=== PATIENT | female | born 1945 | race Caucasian/White ===

== ENCOUNTER 2025-03-16 17:30 | Inpatient (IN) | payer MEDICARE, SELFPAY ==
[2025-03-16] VITALS (18 sets, daily range): BP systolic 118–135; BP diastolic 55–63; PULSE 60–66; RESP 16–23; TEMP 36.7; O2SAT 96–99; BMI 44.1
--- NOTE | 2025-03-16 18:07 | PC.NURSE ---
family reporting pt at baseline, has been more tired lately after recent hospitalization. pt answering appropriately and no obvious apparent defitics noted on exam
--- NOTE | 2025-03-16 18:28 | DI.RAD.S_ITS ---
PROCEDURE: XR CHEST 1V INDICATIONS: altered mental status TECHNIQUE: One view of the chest was acquired. COMPARISON: [facility], CR, XR CHEST 1 VIEW, 03/08/2025, 8:43. FINDINGS: Surgical changes and devices: None. Lungs and pleura: Mild diffuse interstitial prominence. Mild perihilar airway thickening. Persistent bilateral pleural effusions larger on the right. Associated compressive atelectasis. No new dense consolidation. No pneumothorax. Mediastinum: The cardiomediastinal contours remain stable with enlargement of the cardiac silhouette. Bones and chest wall: No suspicious bony lesions. Overlying soft tissues appear unremarkable. IMPRESSION: Cardiomegaly with persistent bilateral pleural effusions and findings suggestive of mild/early pulmonary edema. Concurrent infectious or inflammatory process not excluded if clinically appropriate. No new dense consolidations identified. Dictated by: Adán Morales M.D. on 03/16/2025 at 19:24 Approved by: Adán Morales M.D. on 03/16/2025 at 19:25
--- NOTE | 2025-03-16 18:28 | EKG_ITS ---
[address] [address] Test Date: 2025-03-16 Pat Name: Ольга Gonsales Department: [facility] Room: Gender: Female [employer]: RICK : 1945 Requested By: Order Number: [id number] Reading MD: Andrey Puri Measurements Intervals [place] Rate: 60 P: 54 AL: 232 QRS: -43 QRSD: 116 T: 164 QT: 418 QTc: 418 Interpretive Statements Sinus rhythm with sinus arrhythmia with 1st degree AV block Left axis deviation Septal infarct , age undetermined ST & T wave abnormality, consider anterolateral ischemia Electronically Signed On 03-17-2025 8:19:52 PDT by Andrey Puri
[2025-03-16 18:36] LABS: Add Manual Diff / Slide Review NO; Hematocrit 29.4 % (36-46); Hemoglobin 9.5 g/dL (12.0-16.0); Lymphocytes Absolute Auto 6900 /uL (1100-4500); Mean Corpuscular HGB Conc 32.3 % (30-36); Mean Corpuscular Hemoglobin 28.7 PG (26-34); Mean Corpuscular Volume 88.8 fL (80-100); Platelet Count 188 X10^3/uL (150-400)
[2025-03-16 18:41] LABS: Alanine Aminotransferase 21 IU/L (<35); Albumin 3.4 g/dL (3.5-5.0); Albumin Globulin Ratio 1.1 (1.0-2.8); Alkaline Phosphatase 52 U/L (38-126); Blood Urea Nitrogen 69 mg/dL (7-17); Calcium 10.3 mg/dL (8.4-10.2); Carbon Dioxide 32 mmol/L (22-32); Chloride 91 mmol/L (98-107); Creatine Kinase 20 U/L (30-135); Estimated Glomerular Filt Rate 28 mL/min (>60); Ethanol (ETOH) < 10 mg/dL (<10); Globulin 3.2 g/dL (1.7-4.1); Glucose 140 mg/dL (70-99); HEMOLYSIS < 15 (0-50); Lactate (Lactic Acid) 1.2 mmol/L (0.7-2.1); Potassium 5.3 mmol/L (3.4-5.1); Sodium 132 mmol/L (137-145); Total Protein 6.6 g/dL (6.3-8.2)
[2025-03-16 18:58] LABS: Procalcitonin 0.171 ng/mL (<0.5)
[2025-03-16 19:09] LABS: Troponin I 0.162 ng/mL (0.01-0.034)
[2025-03-16 19:42] LABS: NT-proBNP (BNP-Adult 18+) 17800 pg/mL (<450)
--- NOTE | 2025-03-16 19:49 | ED_ITS ---
HPI - Neuro Symptoms/Deficit <Erick Snow MD - Last Filed: 03/17/25 14:04> General Chief Complaint: Neuro Symptoms/Deficit Stated Complaint: AMS Time Seen by Provider: 03/16/25 17:38 Source: patient, family and EMS Mode of arrival: EMS History of Present Illness HPI Narrative: 79-year-old female with history of congestive heart failure diabetes and morbid obesity, admitted 02/27/2025 through this morning 03/16/2025 at [facility], family recalls patient was treated with diuretics, was discharged to [facility] where she was admitted earlier today, new to that facility, staff felt that she had transient low heart rate 30s, EMS was called, EMS found her heart rate 60-70, but did find that she was somewhat difficult to arouse, blood sugar not reported to be low, seemed to be improved without specific treatment on arrival here. On Anticoagulants: Yes Related Data Home Medications ?Medication ?Instructions ?Recorded ?Confirmed amlodipine 5 mg tablet 5 mg PO DAILY 03/17/2503/17 atorvastatin 10 mg tablet 20 mg PO ONCE PM 03/17/25 furosemide 20 mg tablet 20 mg PO DAILY 03/17/2503/08 gabapentin 100 mg capsule 100 mg PO DAILY 03/17/2504/01 gabapentin 300 mg capsule 300 mg PO ONCE PM 03/17/25 1 losartan 50 mg tablet 50 mg PO DAILY 03/17/2503/08 Allergies Allergy/AdvReac Type Severity Reaction Status Date / Time tetanus and diphtheria Allergy Unknown Verified 03/16/25 17:56 toxoids Review of Systems <Erick Snow MD - Last Filed: 03/17/25 14:04> Hematologic/Lymphatic On Anticoagulants: Yes Patient History <Erick Snow MD - Last Filed: 03/17/25 14:04> Social History household members: other Smoking Status: Never smoker alcohol intake: never Smoking Status: Never smoker Exam <Erick Snow MD - Last Filed: 03/17/25 14:04> Narrative Exam Narrative: GENERAL: Well-developed patient, in mild distress. HEAD: Atraumatic. Normocephalic. EYES: Pupils equal round and reactive. Extraocular motions intact. No scleral icterus. No injection or drainage. ENT: Nose without bleeding, purulent drainage. Throat without erythema, tonsillar hypertrophy or exudate. Airway patent. NECK: Trachea midline. Non tender CARDIOVASCULAR: Regular rate and rhythm without murmurs, gallops, or rubs. RESPIRATORY: Clear to auscultation. Breath sounds equal bilaterally. No wheezes, rales, or rhonchi. GASTROINTESTINAL: Abdomen soft, non-tender, nondistended. EXTREMITIES: No edema or joint tenderness. BACK: Nontender without deformity or crepitance. No flank tenderness. NEURO: AOx3. Motor functions grossly nonfocal. SKIN: No rash or erythema of visible areas Initial Vital Signs Initial Vital Signs: Vital Signs Blood Pressure 122/59 L 03/16/25 17:33 <Taqueria Merino MD - Last Filed: 03/17/25 15:19> Initial Vital Signs Initial Vital Signs: Vital Signs Blood Pressure 122/59 L 03/16/25 17:33 Course <Erick Snow MD - Last Filed: 03/17/25 14:04> Orders Ordered: ED Orders 03/17/25 09:10 BMP [Basic Metabolic Panel] Stat BNP [NT-proBNP (BNP-Adult 18+)] Stat CBC Auto Diff [Complete Blood Count AUTO DIFF] Stat Troponin I Stat 03/17/25 10:58 PTT Partial Thromboplastin Steven Routine Acetaminophen (Acetaminophen 325 Mg Tablet) 650 mg PO Q6H PRN PRN Reason: Fever/Mild Pain (1-3) Apixaban (Apixaban 5 Mg Tablet) 5 mg PO BID TONEY Last Admin: 03/17/25 08:21 Dose: 5 mg Documented By: RUTHANN Naloxone HCl (Naloxone 0.4 Mg/Ml Vial) 0.2 mg IV Q2MIN PRN PRN Reason: Opiate Reversal Discontinued Medications Furosemide (Furosemide 40 Mg/4 Ml Vial) 40 mg IV NOW ONE Stop: 03/16/25 23:35 Last Admin: 03/16/25 23:54 Dose: 40 mg Documented By: BASIM Heparin Sodium (Porcine) (Heparin 5,000 Unit/Ml Vial) 9,500 unit 80 unit/kg (9500 unit) IV NOW ONE Stop: 03/16/25 23:34 Last Admin: 03/17/25 00:16 Dose: 9,500 unit Documented By: BASIM Heparin Sodium (Porcine) (Heparin 5,000 Unit/Ml Vial) 5,000 unit SUBCUT BID TONEY Heparin Sodium/Dextrose (Heparin Drip) 25,000 unit in 500 mls @ 41.976 mls/hr IV CONT TONEY; Protocol Last Admin: 03/17/25 01:18 Dose: Not Given Documented By: Heparin Sodium/Dextrose (Heparin Drip) 25,000 unit in 500 mls @ 40 mls/hr IV CONT TONEY; Protocol Last Titration: 03/17/25 08:09 Dose: Infused Documented By: RUTHANN Co-signed By: Admin: 03/17/25 00:27 Dose: 40 mls/hr, 40 mls/hr Documented By: BASIM Co-signed By: Vital Signs Vital signs: Vital Signs - 8 hr 03/17/25 07:30 03/17/25 07:30 03/17/25 08:00 Pulse Rate 63 62 Respiratory Rate 16 15 Blood Pressure 147/59 H Pulse Oximetry 96 97 Oxygen Delivery Method Nasal Cannula Oxygen Flow Rate 2 03/17/25 08:01 03/17/25 08:01 03/17/25 08:30 Pulse Rate 62 73 Respiratory Rate 16 24 Blood Pressure 129/56 L Pulse Oximetry 95 96 Oxygen Delivery Method Nasal Cannula Nasal Cannula Oxygen Flow Rate 2 2 03/17/25 08:30 03/17/25 09:00 03/17/25 09:01 Pulse Rate 74 74 Respiratory Rate 20 20 Blood Pressure 134/53 L Pulse Oximetry 95 Oxygen Delivery Method Nasal Cannula Oxygen Flow Rate 2 03/17/25 09:01 03/17/25 09:30 03/17/25 09:30 Pulse Rate 75 Respiratory Rate 19 Blood Pressure 127/55 L 148/65 H Pulse Oximetry Oxygen Delivery Method Oxygen Flow Rate 03/17/25 10:00 03/17/25 10:00 03/17/25 10:30 Pulse Rate 74 72 Respiratory Rate 18 16 Blood Pressure 154/68 H Pulse Oximetry 96 97 Oxygen Delivery Method Nasal Cannula Nasal Cannula Oxygen Flow Rate 2 2 03/17/25 10:30 03/17/25 11:00 03/17/25 11:00 Pulse Rate 75 Respiratory Rate 21 Blood Pressure 139/65 145/64 H Pulse Oximetry 96 Oxygen Delivery Method Nasal Cannula Oxygen Flow Rate 2 03/17/25 11:30 03/17/25 11:31 03/17/25 11:31 Pulse Rate 69 69 Respiratory Rate 20 25 H Blood Pressure 143/63 H Pulse Oximetry 96 97 Oxygen Delivery Method Oxygen Flow Rate <Taqueria Merino MD - Last Filed: 03/17/25 15:19> Orders Ordered: ED Orders 03/17/25 09:10 BMP [Basic Metabolic Panel] Stat BNP [NT-proBNP (BNP-Adult 18+)] Stat CBC Auto Diff [Complete Blood Count AUTO DIFF] Stat Troponin I Stat 03/17/25 10:58 PTT Partial Thromboplastin Steven Routine Acetaminophen (Acetaminophen 325 Mg Tablet) 650 mg PO Q6H PRN PRN Reason: Fever/Mild Pain (1-3) Apixaban (Apixaban 5 Mg Tablet) 5 mg PO BID TONEY Last Admin: 03/17/25 08:21 Dose: 5 mg Documented By: RUTHANN Naloxone HCl (Naloxone 0.4 Mg/Ml Vial) 0.2 mg IV Q2MIN PRN PRN Reason: Opiate Reversal Discontinued Medications Furosemide (Furosemide 40 Mg/4 Ml Vial) 40 mg IV NOW ONE Stop: 03/16/25 23:35 Last Admin: 03/16/25 23:54 Dose: 40 mg Documented By: BASIM Heparin Sodium (Porcine) (Heparin 5,000 Unit/Ml Vial) 9,500 unit 80 unit/kg (9500 unit) IV NOW ONE Stop: 03/16/25 23:34 Last Admin: 03/17/25 00:16 Dose: 9,500 unit Documented By: BASIM Heparin Sodium (Porcine) (Heparin 5,000 Unit/Ml Vial) 5,000 unit SUBCUT BID TONEY Heparin Sodium/Dextrose (Heparin Drip) 25,000 unit in 500 mls @ 41.976 mls/hr IV CONT TONEY; Protocol Last Admin: 03/17/25 01:18 Dose: Not Given Documented By: Heparin Sodium/Dextrose (Heparin Drip) 25,000 unit in 500 mls @ 40 mls/hr IV CONT TONEY; Protocol Last Titration: 03/17/25 08:09 Dose: Infused Documented By: RUTHANN Co-signed By: Admin: 03/17/25 00:27 Dose: 40 mls/hr, 40 mls/hr Documented By: BASIM Co-signed By: Reevaluation(s) Reevaluation #1: Care was assumed at 7:00 a.m. shift change. Patient was discharged from [facility] yesterday to intermediate. At [facility], she was treated for new onset systolic heart failure, paroxysmal atrial fibrillation had a chronically elevated troponin, had impaired renal function, had an encephalopathy that apparently was not fully explained but resolved. After being transferred to the intermediate facility, she was noted to have decreased mental status and possibly bradycardia. Here she was found to have an elevated troponin, elevated proBNP elevated D-dimer and mental status was grossly intact. CT head is negative, pulmonary angiogram for pulmonary embolism not done secondary to impaired kidney functions. Lower extremity ultrasound negative for DVT. Patient was placed on heparin secondary elevated troponin and concern for pulmonary embolism related to elevated D-dimer. I note that the patient was on apixaban at the time of discharge. This was given for her atrial fibrillation. This morning, the patient's vital signs are reviewed and reassuring. She has a new oxygen requirement requiring 2 L. on examination she is somewhat breathless. Her lungs are clear anteriorly, she is too weak to sit up independently she is morbidly obese. Regular rhythm and rate with a 3/6 systolic murmur that had been previously noted. Bilateral pitting edema of the lower extremities. Oriented x3 and able to tell me that she went from her home in [place] to [facility] to rehab facility to [facility]. She denied having chest pain at any point. She denies pain. He tells me that she is hungry. Has elevated D-dimer however this is nonspecific and negative DVT studies for lower extremity. At this point I am going to discontinue her heparin and simply continue apixaban. At the time I assumed her care the plan was to transfer her back to [facility] where she was discharged yesterday. I will contact the [facility] hospitalist service to discuss this further. I think the primary reason for transfer would be continuity of care, she may be appropriate for admission at this hospital. Reevaluation #2: Spoke with patient and no family is at bedside. She had spent 1 night at [facility] before coming here. Appears to be pretty much at her mental status baseline. Family and patient are agreeable to admission here, I am not optimistic that there will be a vent at [facility] nor do I think she necessarily would have different services needed at [facility]. Consultations Consultation #1: Case discussed with Dr.Al Puri accepts admission Vital Signs Vital signs: Vital Signs - 8 hr 03/17/25 07:30 03/17/25 07:30 03/17/25 08:00 Pulse Rate 63 62 Respiratory Rate 16 15 Blood Pressure 147/59 H Pulse Oximetry 96 97 Oxygen Delivery Method Nasal Cannula Oxygen Flow Rate 2 03/17/25 08:01 03/17/25 08:01 03/17/25 08:30 Pulse Rate 62 73 Respiratory Rate 16 24 Blood Pressure 129/56 L Pulse Oximetry 95 96 Oxygen Delivery Method Nasal Cannula Nasal Cannula Oxygen Flow Rate 2 2 03/17/25 08:30 03/17/25 09:00 03/17/25 09:01 Pulse Rate 74 74 Respiratory Rate 20 20 Blood Pressure 134/53 L Pulse Oximetry 95 Oxygen Delivery Method Nasal Cannula Oxygen Flow Rate 2 03/17/25 09:01 03/17/25 09:30 03/17/25 09:30 Pulse Rate 75 Respiratory Rate 19 Blood Pressure 127/55 L 148/65 H Pulse Oximetry Oxygen Delivery Method Oxygen Flow Rate 03/17/25 10:00 03/17/25 10:00 03/17/25 10:30 Pulse Rate 74 72 Respiratory Rate 18 16 Blood Pressure 154/68 H Pulse Oximetry 96 97 Oxygen Delivery Method Nasal Cannula Nasal Cannula Oxygen Flow Rate 2 2 03/17/25 10:30 03/17/25 11:00 03/17/25 11:00 Pulse Rate 75 Respiratory Rate 21 Blood Pressure 139/65 145/64 H Pulse Oximetry 96 Oxygen Delivery Method Nasal Cannula Oxygen Flow Rate 2 03/17/25 11:30 03/17/25 11:31 03/17/25 11:31 Pulse Rate 69 69 Respiratory Rate 20 25 H Blood Pressure 143/63 H Pulse Oximetry 96 97 Oxygen Delivery Method Oxygen Flow Rate MDM - Neuro Symptoms/Deficit <Erick Snow MD - Last Filed: 03/17/25 14:04> Lab Data Attestation: I reviewed the patient's lab results. Lab results narrative: White blood cell count 98205, hemoglobin 9.5, platelets adequate. Glucose 140. BUN 69 with creatinine 1.82. GFR 28. Serum CO2 32. Sodium 132, potassium 5.3. Liver functions normal. Initial troponin 0.162 elevated. BNP 58280 markedly elevated. D-dimer 1351 also elevated. Lactate and procalcitonin not elevated. 03/17/25 09:10 03/17/25 09:10 Labs: Lab Results 03/16/25 03/16/25 03/16/25 Range/Units 17:48 19:25 21:23 WBC 11.9 H (4.5-11.0) X10^3/uL RBC 3.31 L (4.0-5.2) X10^6/uL Hgb 9.5 L (12.0-16.0) g/dL Hct 29.4 L (36-46) % MCV 88.8 (80-100) fL MCH 28.7 (26-34) PG MCHC 32.3 (30-36) % RDW 17.4 H (11.6-14.8) % Plt Count 188 (150-400) X10^3/uL Neut % (Auto) 33.0 L (50-75) % Lymph % (Auto) 57.9 H (25-40) % Wilcox % (Auto) 7.4 (3-14) % Eos % (Auto) 1.3 L (2-4) % Baso % (Auto) 0.4 (0-2) % Neut # (Auto) 3900 (0387-3388) /uL Lymph # (Auto) 6900 H (4994-2478) /uL Wilcox # (Auto) 900 (0-900) /uL Eos # (Auto) 100 (0-450) /uL Baso # (Auto) 0 (0-100) /uL PT (9.4-12.5) SECONDS INR (0.9-1.3) APTT (25.1-36.5) SECONDS D-Dimer 1351 H (<500) ng/ml VBG pH (7.33-7.43) VBG pCO2 (45-50) mmHg VBG pO2 (35-45) mmHg VBG HCO3 (24-28) mmol/L VBG Total CO2 (24-29) mmol/L VBG O2 Saturation (70-75) % VBG Base Excess (0-4) mmol/L FiO2 % % Sodium 132 L (137-145) mmol/L Potassium 5.3 H (3.4-5.1) mmol/L Chloride 91 L (98-107) mmol/L Carbon Dioxide 32 (22-32) mmol/L BUN 69 H (7-17) mg/dL Creatinine 1.82 H (0.52-1.04) mg/dL Estimated GFR 28 L (>60) mL/min BUN/Creatinine Ratio 37.9 H (6-22) Glucose 140 H (70-99) mg/dL Lactate 1.2 (0.7-2.1) mmol/L Calcium 10.3 H (8.4-10.2) mg/dL Total Bilirubin 0.6 (0.2-1.3) mg/dL AST 29 (14-36) IU/L ALT 21 (<35) IU/L Alkaline Phosphatase 52 (38-126) U/L Total Creatine Kinase 20 L (30-135) U/L Troponin I 0.162 H* 0.174 H* (0.01-0.034) ng/mL NT-Pro-B Natriuret Pep 01347 H (<450) pg/mL Total Protein 6.6 (6.3-8.2) g/dL Albumin 3.4 L (3.5-5.0) g/dL Globulin 3.2 (1.7-4.1) g/dL Albumin/Globulin Ratio 1.1 (1.0-2.8) Procalcitonin 0.171 (<0.5) ng/mL Ethyl Alcohol < 10 (<10) mg/dL SARS-CoV-2 (PCR) Negative (Negative) Influenza A (RT-PCR) Flu a negative (NEGATIVE) Influenza B (RT-PCR) Flu b negative (NEGATIVE) RSV (PCR) Negative (Negative) 03/16/25 03/16/25 03/17/25 Range/Units 21:25 22:51 00:15 WBC (4.5-11.0) X10^3/uL RBC (4.0-5.2) X10^6/uL Hgb (12.0-16.0) g/dL Hct (36-46) % MCV (80-100) fL MCH (26-34) PG MCHC (30-36) % RDW (11.6-14.8) % Plt Count (150-400) X10^3/uL Neut % (Auto) (50-75) % Lymph % (Auto) (25-40) % Wilcox % (Auto) (3-14) % Eos % (Auto) (2-4) % Baso % (Auto) (0-2) % Neut # (Auto) (8633-5620) /uL Lymph # (Auto) (4792-4076) /uL Wilcox # (Auto) (0-900) /uL Eos # (Auto) (0-450) /uL Baso # (Auto) (0-100) /uL PT 18.3 H (9.4-12.5) SECONDS INR 1.6 H (0.9-1.3) APTT 30 (25.1-36.5) SECONDS D-Dimer (<500) ng/ml VBG pH 7.34 (7.33-7.43) VBG pCO2 68.4 H (45-50) mmHg VBG pO2 32 L (35-45) mmHg VBG HCO3 37 H (24-28) mmol/L VBG Total CO2 35 H (24-29) mmol/L VBG O2 Saturation 54 L (70-75) % VBG Base Excess 9.0 H (0-4) mmol/L FiO2 % 28.0 % % Sodium (137-145) mmol/L Potassium (3.4-5.1) mmol/L Chloride (98-107) mmol/L Carbon Dioxide (22-32) mmol/L BUN (7-17) mg/dL Creatinine (0.52-1.04) mg/dL Estimated GFR (>60) mL/min BUN/Creatinine Ratio (6-22) Glucose (70-99) mg/dL Lactate (0.7-2.1) mmol/L Calcium (8.4-10.2) mg/dL Total Bilirubin (0.2-1.3) mg/dL AST (14-36) IU/L ALT (<35) IU/L Alkaline Phosphatase (38-126) U/L Total Creatine Kinase (30-135) U/L Troponin I 0.156 H* (0.01-0.034) ng/mL NT-Pro-B Natriuret Pep (<450) pg/mL Total Protein (6.3-8.2) g/dL Albumin (3.5-5.0) g/dL Globulin (1.7-4.1) g/dL Albumin/Globulin Ratio (1.0-2.8) Procalcitonin (<0.5) ng/mL Ethyl Alcohol (<10) mg/dL SARS-CoV-2 (PCR) (Negative) Influenza A (RT-PCR) (NEGATIVE) Influenza B (RT-PCR) (NEGATIVE) RSV (PCR) (Negative) 03/17/25 03/17/25 03/17/25 Range/Units 09:10 09:10 09:10 WBC 8.7 (4.5-11.0) X10^3/uL RBC 3.12 L (4.0-5.2) X10^6/uL Hgb Cancelled 9.1 L (12.0-16.0) g/dL Hct Cancelled 27.8 L (36-46) % MCV 89.0 (80-100) fL MCH 29.2 (26-34) PG MCHC 32.8 (30-36) % RDW 17.5 H (11.6-14.8) % Plt Count Cancelled (150-400) X10^3/uL Neut % (Auto) (50-75) % Lymph % (Auto) (25-40) % Wilcox % (Auto) (3-14) % Eos % (Auto) (2-4) % Baso % (Auto) (0-2) % Neut # (Auto) (7687-1288) /uL Lymph # (Auto) (6634-1706) /uL Wilcox # (Auto) (0-900) /uL Eos # (Auto) (0-450) /uL Baso # (Auto) (0-100) /uL PT (9.4-12.5) SECONDS INR (0.9-1.3) APTT (25.1-36.5) SECONDS D-Dimer (<500) ng/ml VBG pH (7.33-7.43) VBG pCO2 (45-50) mmHg VBG pO2 (35-45) mmHg VBG HCO3 (24-28) mmol/L VBG Total CO2 (24-29) mmol/L VBG O2 Saturation (70-75) % VBG Base Excess (0-4) mmol/L FiO2 % % Sodium (137-145) mmol/L Potassium (3.4-5.1) mmol/L Chloride (98-107) mmol/L Carbon Dioxide (22-32) mmol/L BUN (7-17) mg/dL Creatinine (0.52-1.04) mg/dL Estimated GFR (>60) mL/min BUN/Creatinine Ratio (6-22) Glucose (70-99) mg/dL Lactate (0.7-2.1) mmol/L Calcium (8.4-10.2) mg/dL Total Bilirubin (0.2-1.3) mg/dL AST (14-36) IU/L ALT (<35) IU/L Alkaline Phosphatase (38-126) U/L Total Creatine Kinase (30-135) U/L Troponin I (0.01-0.034) ng/mL NT-Pro-B Natriuret Pep (<450) pg/mL Total Protein (6.3-8.2) g/dL Albumin (3.5-5.0) g/dL Globulin (1.7-4.1) g/dL Albumin/Globulin Ratio (1.0-2.8) Procalcitonin (<0.5) ng/mL Ethyl Alcohol (<10) mg/dL SARS-CoV-2 (PCR) (Negative) Influenza A (RT-PCR) (NEGATIVE) Influenza B (RT-PCR) (NEGATIVE) RSV (PCR) (Negative) 03/17/25 03/17/25 Range/Units 09:10 10:58 WBC (4.5-11.0) X10^3/uL RBC (4.0-5.2) X10^6/uL Hgb (12.0-16.0) g/dL Hct (36-46) % MCV (80-100) fL MCH (26-34) PG MCHC (30-36) % RDW (11.6-14.8) % Plt Count 162 (150-400) X10^3/uL Neut % (Auto) 37.2 L (50-75) % Lymph % (Auto) 52.0 H (25-40) % Wilcox % (Auto) 7.9 (3-14) % Eos % (Auto) 2.2 (2-4) % Baso % (Auto) 0.7 (0-2) % Neut # (Auto) 3200 (4759-8423) /uL Lymph # (Auto) 4500 (4438-5474) /uL Wilcox # (Auto) 700 (0-900) /uL Eos # (Auto) 200 (0-450) /uL Baso # (Auto) 100 (0-100) /uL PT (9.4-12.5) SECONDS INR (0.9-1.3) APTT 189 H* D (25.1-36.5) SECONDS D-Dimer (<500) ng/ml VBG pH (7.33-7.43) VBG pCO2 (45-50) mmHg VBG pO2 (35-45) mmHg VBG HCO3 (24-28) mmol/L VBG Total CO2 (24-29) mmol/L VBG O2 Saturation (70-75) % VBG Base Excess (0-4) mmol/L FiO2 % % Sodium 130 L (137-145) mmol/L Potassium 5.8 H (3.4-5.1) mmol/L Chloride 92 L (98-107) mmol/L Carbon Dioxide 32 (22-32) mmol/L BUN 75 H (7-17) mg/dL Creatinine 1.66 H (0.52-1.04) mg/dL Estimated GFR 31 L (>60) mL/min BUN/Creatinine Ratio 45.2 H (6-22) Glucose 164 H (70-99) mg/dL Lactate (0.7-2.1) mmol/L Calcium 9.9 (8.4-10.2) mg/dL Total Bilirubin (0.2-1.3) mg/dL AST (14-36) IU/L ALT (<35) IU/L Alkaline Phosphatase (38-126) U/L Total Creatine Kinase (30-135) U/L Troponin I 0.152 H* (0.01-0.034) ng/mL NT-Pro-B Natriuret Pep 68750 H (<450) pg/mL Total Protein (6.3-8.2) g/dL Albumin (3.5-5.0) g/dL Globulin (1.7-4.1) g/dL Albumin/Globulin Ratio (1.0-2.8) Procalcitonin (<0.5) ng/mL Ethyl Alcohol (<10) mg/dL SARS-CoV-2 (PCR) (Negative) Influenza A (RT-PCR) (NEGATIVE) Influenza B (RT-PCR) (NEGATIVE) RSV (PCR) (Negative) Imaging Data CT scan - head: Radiologist's Impression: [address] [address] [address] Scan Report Signed Patient: Ольга Gonsales MR#: [id number] : 1945 Acct:[id number] Age/Sex: 79 / F Date of Service: 03/16/25 Loc: ED Accession Number: [id number] Procedure: CT head/brain wo con Ordering Provider: Erick Snow MD PROCEDURE: CT HEAD/BRAIN WO CON INDICATIONS: alt MSE, better now TECHNIQUE: Noncontrast 4.5 mm thick angled axial sections acquired from the foramen magnum to the vertex, with coronal and sagittal reformats. For radiation dose reduction, the following was used: automated exposure control, adjustment of mA and/or kV according to patient size. COMPARISON: None. FINDINGS: Image quality: Diagnostic. CSF spaces: Basal cisterns are patent. No extra-axial fluid collections. The ventricles are symmetric in size and shape. Brain: No intracranial bleeds or mass effect. Hypoattenuation of the blunt- white matter junction with associated volume loss in the middle gyrus of the left frontal lobe consistent with a prior chronic infarct. There is cerebral volume loss, with resultant ventricular and sulcal prominence. There are periventricular and deep white matter chronic small vessel ischemic changes. There is intracranial internal carotid artery atherosclerosis. Skull and face: Calvarium and visualized facial bones appear intact, without suspicious lesions. Sinuses: Visualized sinuses and mastoids are clear. IMPRESSION: No acute intracranial pathology. 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 Dictated by: Bala Youngblood M.D. on 03/17/2025 at 0:51 Approved by: Bala Youngblood M.D. on 03/17/2025 at 0:53 Chest x-ray: Radiologist's Impression: [address] [address] XRay Report Signed Patient: Ольга Gonsales MR#: [id number] : 1945 Acct:[id number] Age/Sex: 79 / F Date of Service: 03/16/25 Loc: ED Accession Number: [id number] Procedure: XR chest 1V Ordering Provider: Erick Snow MD PROCEDURE: XR CHEST 1V INDICATIONS: altered mental status TECHNIQUE: One view of the chest was acquired. COMPARISON: [facility], CR, XR CHEST 1 VIEW, 03/08/2025, 8:43. FINDINGS: Surgical changes and devices: None. Lungs and pleura: Mild diffuse interstitial prominence. Mild perihilar airway thickening. Persistent bilateral pleural effusions larger on the right. Associated compressive atelectasis. No new dense consolidation. No pneumothorax. Mediastinum: The cardiomediastinal contours remain stable with enlargement of the cardiac silhouette. Bones and chest wall: No suspicious bony lesions. Overlying soft tissues appear unremarkable. IMPRESSION: Cardiomegaly with persistent bilateral pleural effusions and findings suggestive of mild/early pulmonary edema. Concurrent infectious or inflammatory process not excluded if clinically appropriate. No new dense consolidations identified. Dictated by: Adán Morales M.D. on 03/16/2025 at 19:24 Approved by: Adán Morales M.D. on 03/16/2025 at 19:25 Ultrasound bilateral lower extremities venous Doppler: Radiologist's Impression: [place] [address] Ultrasound Report Signed Patient: Ольга Gonsales MR#: [id number] : 1945 Acct:[id number] Age/Sex: 79 / F Date of Service: 03/16/25 Loc: ED Accession Number: [id number] Procedure: periph venous low extrem bi Ordering Provider: Erick Snow MD PROCEDURE: US PERIPH VENOUS LOW EXTREM BI INDICATIONS: Dd+, poor GFR for CTA Chest, eval for BLE clots TECHNIQUE: Real-time imaging, as well as color and pulse Doppler interrogation, were performed of the deep veins of both legs from the inguinal ligament to the popliteal fossa, with documentation of the visualized calf veins. COMPARISON: None. FINDINGS: Right: The common femoral, femoral, and popliteal veins are normally compressible, and free of intraluminal thrombus. Color and pulse Doppler demonstrate normal phasic intravascular flow. There is normal augmentation response to distal compression maneuver. The calf veins are obscured by lower extremity edema Left: The common femoral, femoral, and popliteal veins are normally compressible, and free of intraluminal thrombus. Color and pulse Doppler demonstrate normal phasic intravascular flow. There is normal augmentation response to distal compression maneuver. The calf veins are obscured by lower extremity edema IMPRESSION: No findings of deep venous thrombosis in either lower extremity. Dictated by: Bala Youngblood M.D. on 03/16/2025 at 21:15 Approved by: Bala Youngblood M.D. on 03/16/2025 at 21:16 ECG Data Attestation: I personally reviewed and interpreted this ECG as follows: Interpretation: 2007, normal sinus rhythm with rate of 60, sinus arrhythmia, first-degree AV block. No obvious ST segment elevation. DE 232, QRS 116, QTC 418. MDM Narrative Medical decision making narrative: 79-year-old female released earlier today after long hospital stay [facility] for CHF, diuresis, discharged to adjacent nearby [facility], while at the care home noted to have heart rate of 30, seemed to be difficult to arouse, altered mental status, EMS called, heart rate 60, normotensive, but agreed that patient seemed to be difficult to arouse, transported, glucose normal, mental status normal during transport short trip to hospital, normal mono status on arrival here. EKG Chest x-ray CT head noncontrast, no acute changes. See radiology report. Initial lab data: White blood cell count 68296, hemoglobin 9.5, platelets adequate. Glucose 140. BUN 69 with creatinine 1.82. GFR 28. Serum CO2 32. Sodium 132, potassium 5.3. Liver functions normal. Initial troponin 0.162 elevated. BNP 49795 markedly elevated. D-dimer 1351 also elevated. Lactate and procalcitonin not elevated. Ultrasound bilateral lower extremities, no DVT. Repeat troponin 0.17 further increased, 3rd repeat interval troponin 0.15 decreased GFR poor, elevated D-dimer, hold CTA chest study. Ultrasound Doppler lower extremities negative for DVT. IV heparin bolus/infusion started per VTE/PE protocol empirically. [employer] called [facility], regarding multiple abnormalities on patient admitted there for 2 weeks, discharged less than 12 hours, no Nephrology here, no in-house Cardiology, they anticipate back transfer when beds available, hold here overnight, contact them again later in the morning with morning discharges, anticipated transfer back to [facility]. Patient/family aware 0100, no beds available [facility], continue hold here, anticipate transfer to [facility] when beds available in the morning, reach out to [facility] in the morning planned. IV Lasix given. IV heparin drip. 0700, contact [facility] later this morning after morning discharges, to query about back transfer. Signed out to ED change of shift physician Dr Merino. <Taqueria Merino MD - Last Filed: 03/17/25 15:19> Lab Data Labs: Lab Results 03/16/25 03/16/25 03/16/25 Range/Units 17:48 19:25 21:23 WBC 11.9 H (4.5-11.0) X10^3/uL RBC 3.31 L (4.0-5.2) X10^6/uL Hgb 9.5 L (12.0-16.0) g/dL Hct 29.4 L (36-46) % MCV 88.8 (80-100) fL MCH 28.7 (26-34) PG MCHC 32.3 (30-36) % RDW 17.4 H (11.6-14.8) % Plt Count 188 (150-400) X10^3/uL Neut % (Auto) 33.0 L (50-75) % Lymph % (Auto) 57.9 H (25-40) % [place] % (Auto) 7.4 (3-14) % Eos % (Auto) 1.3 L (2-4) % Baso % (Auto) 0.4 (0-2) % Neut # (Auto) 3900 (3725-2068) /uL Lymph # (Auto) 6900 H (9631-6361) /uL [place] # (Auto) 900 (0-900) /uL Eos # (Auto) 100 (0-450) /uL Baso # (Auto) 0 (0-100) /uL PT (9.4-12.5) SECONDS INR (0.9-1.3) APTT (25.1-36.5) SECONDS D-Dimer 1351 H (<500) ng/ml VBG pH (7.33-7.43) VBG pCO2 (45-50) mmHg VBG pO2 (35-45) mmHg VBG HCO3 (24-28) mmol/L VBG Total CO2 (24-29) mmol/L VBG O2 Saturation (70-75) % VBG Base Excess (0-4) mmol/L FiO2 % % Sodium 132 L (137-145) mmol/L Potassium 5.3 H (3.4-5.1) mmol/L Chloride 91 L (98-107) mmol/L Carbon Dioxide 32 (22-32) mmol/L BUN 69 H (7-17) mg/dL Creatinine 1.82 H (0.52-1.04) mg/dL Estimated GFR 28 L (>60) mL/min BUN/Creatinine Ratio 37.9 H (6-22) Glucose 140 H (70-99) mg/dL Lactate 1.2 (0.7-2.1) mmol/L Calcium 10.3 H (8.4-10.2) mg/dL Total Bilirubin 0.6 (0.2-1.3) mg/dL AST 29 (14-36) IU/L ALT 21 (<35) IU/L Alkaline Phosphatase 52 (38-126) U/L Total Creatine Kinase 20 L (30-135) U/L Troponin I 0.162 H* 0.174 H* (0.01-0.034) ng/mL NT-Pro-B Natriuret Pep 07719 H (<450) pg/mL Total Protein 6.6 (6.3-8.2) g/dL Albumin 3.4 L (3.5-5.0) g/dL Globulin 3.2 (1.7-4.1) g/dL Albumin/Globulin Ratio 1.1 (1.0-2.8) Procalcitonin 0.171 (<0.5) ng/mL Ethyl Alcohol < 10 (<10) mg/dL SARS-CoV-2 (PCR) Negative (Negative) Influenza A (RT-PCR) Flu a negative (NEGATIVE) Influenza B (RT-PCR) Flu b negative (NEGATIVE) RSV (PCR) Negative (Negative) 03/16/25 03/16/25 03/17/25 Range/Units 21:25 22:51 00:15 WBC (4.5-11.0) X10^3/uL RBC (4.0-5.2) X10^6/uL Hgb (12.0-16.0) g/dL Hct (36-46) % MCV (80-100) fL MCH (26-34) PG MCHC (30-36) % RDW (11.6-14.8) % Plt Count (150-400) X10^3/uL Neut % (Auto) (50-75) % Lymph % (Auto) (25-40) % [place] % (Auto) (3-14) % Eos % (Auto) (2-4) % Baso % (Auto) (0-2) % Neut # (Auto) (9110-5063) /uL Lymph # (Auto) (2830-7926) /uL [place] # (Auto) (0-900) /uL Eos # (Auto) (0-450) /uL Baso # (Auto) (0-100) /uL PT 18.3 H (9.4-12.5) SECONDS INR 1.6 H (0.9-1.3) APTT 30 (25.1-36.5) SECONDS D-Dimer (<500) ng/ml VBG pH 7.34 (7.33-7.43) VBG pCO2 68.4 H (45-50) mmHg VBG pO2 32 L (35-45) mmHg VBG HCO3 37 H (24-28) mmol/L VBG Total CO2 35 H (24-29) mmol/L VBG O2 Saturation 54 L (70-75) % VBG Base Excess 9.0 H (0-4) mmol/L FiO2 % 28.0 % % Sodium (137-145) mmol/L Potassium (3.4-5.1) mmol/L Chloride (98-107) mmol/L Carbon Dioxide (22-32) mmol/L BUN (7-17) mg/dL Creatinine (0.52-1.04) mg/dL Estimated GFR (>60) mL/min BUN/Creatinine Ratio (6-22) Glucose (70-99) mg/dL Lactate (0.7-2.1) mmol/L Calcium (8.4-10.2) mg/dL Total Bilirubin (0.2-1.3) mg/dL AST (14-36) IU/L ALT (<35) IU/L Alkaline Phosphatase (38-126) U/L Total Creatine Kinase (30-135) U/L Troponin I 0.156 H* (0.01-0.034) ng/mL NT-Pro-B Natriuret Pep (<450) pg/mL Total Protein (6.3-8.2) g/dL Albumin (3.5-5.0) g/dL Globulin (1.7-4.1) g/dL Albumin/Globulin Ratio (1.0-2.8) Procalcitonin (<0.5) ng/mL Ethyl Alcohol (<10) mg/dL SARS-CoV-2 (PCR) (Negative) Influenza A (RT-PCR) (NEGATIVE) Influenza B (RT-PCR) (NEGATIVE) RSV (PCR) (Negative) 03/17/25 03/17/25 03/17/25 Range/Units 09:10 09:10 09:10 WBC 8.7 (4.5-11.0) X10^3/uL RBC 3.12 L (4.0-5.2) X10^6/uL Hgb Cancelled 9.1 L (12.0-16.0) g/dL Hct Cancelled 27.8 L (36-46) % MCV 89.0 (80-100) fL MCH 29.2 (26-34) PG MCHC 32.8 (30-36) % RDW 17.5 H (11.6-14.8) % Plt Count Cancelled (150-400) X10^3/uL Neut % (Auto) (50-75) % Lymph % (Auto) (25-40) % [place] % (Auto) (3-14) % Eos % (Auto) (2-4) % Baso % (Auto) (0-2) % Neut # (Auto) (3026-2396) /uL Lymph # (Auto) (5497-4959) /uL [place] # (Auto) (0-900) /uL Eos # (Auto) (0-450) /uL Baso # (Auto) (0-100) /uL PT (9.4-12.5) SECONDS INR (0.9-1.3) APTT (25.1-36.5) SECONDS D-Dimer (<500) ng/ml VBG pH (7.33-7.43) VBG pCO2 (45-50) mmHg VBG pO2 (35-45) mmHg VBG HCO3 (24-28) mmol/L VBG Total CO2 (24-29) mmol/L VBG O2 Saturation (70-75) % VBG Base Excess (0-4) mmol/L FiO2 % % Sodium (137-145) mmol/L Potassium (3.4-5.1) mmol/L Chloride (98-107) mmol/L Carbon Dioxide (22-32) mmol/L BUN (7-17) mg/dL Creatinine (0.52-1.04) mg/dL Estimated GFR (>60) mL/min BUN/Creatinine Ratio (6-22) Glucose (70-99) mg/dL Lactate (0.7-2.1) mmol/L Calcium (8.4-10.2) mg/dL Total Bilirubin (0.2-1.3) mg/dL AST (14-36) IU/L ALT (<35) IU/L Alkaline Phosphatase (38-126) U/L Total Creatine Kinase (30-135) U/L Troponin I (0.01-0.034) ng/mL NT-Pro-B Natriuret Pep (<450) pg/mL Total Protein (6.3-8.2) g/dL Albumin (3.5-5.0) g/dL Globulin (1.7-4.1) g/dL Albumin/Globulin Ratio (1.0-2.8) Procalcitonin (<0.5) ng/mL Ethyl Alcohol (<10) mg/dL SARS-CoV-2 (PCR) (Negative) Influenza A (RT-PCR) (NEGATIVE) Influenza B (RT-PCR) (NEGATIVE) RSV (PCR) (Negative) 03/17/25 03/17/25 Range/Units 09:10 10:58 WBC (4.5-11.0) X10^3/uL RBC (4.0-5.2) X10^6/uL Hgb (12.0-16.0) g/dL Hct (36-46) % MCV (80-100) fL MCH (26-34) PG MCHC (30-36) % RDW (11.6-14.8) % Plt Count 162 (150-400) X10^3/uL Neut % (Auto) 37.2 L (50-75) % Lymph % (Auto) 52.0 H (25-40) % [place] % (Auto) 7.9 (3-14) % Eos % (Auto) 2.2 (2-4) % Baso % (Auto) 0.7 (0-2) % Neut # (Auto) 3200 (1178-6324) /uL Lymph # (Auto) 4500 (0005-7913) /uL [place] # (Auto) 700 (0-900) /uL Eos # (Auto) 200 (0-450) /uL Baso # (Auto) 100 (0-100) /uL PT (9.4-12.5) SECONDS INR (0.9-1.3) APTT 189 H* D (25.1-36.5) SECONDS D-Dimer (<500) ng/ml VBG pH (7.33-7.43) VBG pCO2 (45-50) mmHg VBG pO2 (35-45) mmHg VBG HCO3 (24-28) mmol/L VBG Total CO2 (24-29) mmol/L VBG O2 Saturation (70-75) % VBG Base Excess (0-4) mmol/L FiO2 % % Sodium 130 L (137-145) mmol/L Potassium 5.8 H (3.4-5.1) mmol/L Chloride 92 L (98-107) mmol/L Carbon Dioxide 32 (22-32) mmol/L BUN 75 H (7-17) mg/dL Creatinine 1.66 H (0.52-1.04) mg/dL Estimated GFR 31 L (>60) mL/min BUN/Creatinine Ratio 45.2 H (6-22) Glucose 164 H (70-99) mg/dL Lactate (0.7-2.1) mmol/L Calcium 9.9 (8.4-10.2) mg/dL Total Bilirubin (0.2-1.3) mg/dL AST (14-36) IU/L ALT (<35) IU/L Alkaline Phosphatase (38-126) U/L Total Creatine Kinase (30-135) U/L Troponin I 0.152 H* (0.01-0.034) ng/mL NT-Pro-B Natriuret Pep 34251 H (<450) pg/mL Total Protein (6.3-8.2) g/dL Albumin (3.5-5.0) g/dL Globulin (1.7-4.1) g/dL Albumin/Globulin Ratio (1.0-2.8) Procalcitonin (<0.5) ng/mL Ethyl Alcohol (<10) mg/dL SARS-CoV-2 (PCR) (Negative) Influenza A (RT-PCR) (NEGATIVE) Influenza B (RT-PCR) (NEGATIVE) RSV (PCR) (Negative) MDM Narrative Medical decision making narrative: 79-year-old female released earlier today after long hospital stay [facility] for CHF, diuresis, discharged to adjacent nearby [facility] care home, while at the care home noted to have heart rate of 30, seemed to be difficult to arouse, altered mental status, EMS called, heart rate 60, normotensive, but agreed that patient seemed to be difficult to arouse, transported, glucose normal, mental status normal during transport short trip to hospital, normal mono status on arrival here. EKG Chest x-ray CT head noncontrast, no acute changes. See radiology report. Initial lab data: White blood cell count 43106, hemoglobin 9.5, platelets adequate. Glucose 140. BUN 69 with creatinine 1.82. GFR 28. Serum CO2 32. Sodium 132, potassium 5.3. Liver functions normal. Initial troponin 0.162 elevated. BNP 72199 markedly elevated. D-dimer 1351 also elevated. Lactate and procalcitonin not elevated. Ultrasound bilateral lower extremities, no DVT. Repeat troponin 0.17 further increased, 3rd repeat interval troponin 0.15 decreased GFR poor, elevated D-dimer, hold CTA chest study. Ultrasound Doppler lower extremities negative for DVT. IV heparin bolus/infusion started per VTE/PE protocol empirically. [employer] called [facility], regarding multiple abnormalities on patient admitted there for 2 weeks, discharged less than 12 hours, no Nephrology here, no in-house Cardiology, they anticipate back transfer when beds available, hold here overnight, contact them again later in the morning with morning discharges, anticipated transfer back to [facility]. Patient/family aware 0100, no beds available [facility], continue hold here, anticipate transfer to [facility] when beds available in the morning, reach out to [facility] in the morning planned. IV Lasix given. IV heparin drip. 0700, contact [facility] later this morning after morning discharges, to query about back transfer. Signed out to ED change of shift physician Dr Merino. 79-year-old female presenting with what was described as decreased mental status who cleared without specific intervention and no focal neurologic deficits noted. Does not appear to be encephalopathic from infection does not appear to be having a stroke does not appear to be suffering adverse effects of medications. Has a stably elevated troponin without EKG changes. ProBNP is also elevated consistent with heart failure and she was recently hospitalized with known heart failure we have started gentle diuresis with furosemide. D- dimer was abnormal, patient has been anticoagulated previously, presentation does not suggest pulmonary embolism at this point and renal functions make CT angio not advisable. Patient will be admitted to the hospitalist service. Discharge Plan Departure Patient Disposition: Admitted As Inpatient Clinical Impression: Congestive heart failure, Elevated troponin, Renal insufficiency, Elevated d- dimer, Bilateral lower extremity edema Admit Date/Time: 03/17/25 11:56 Admit Provider: Andrey Puri
[2025-03-16 20:07] LABS: Influenza A - CEPHEID Flu A NEGATIVE (NEGATIVE); Influenza B - CEPHEID Flu B NEGATIVE (NEGATIVE)
[2025-03-16 20:11] LABS: COVID-19 CEPHEID 4-PLEX PCR Negative (Negative)
--- NOTE | 2025-03-16 20:17 | DI.US.S_ITS ---
PROCEDURE: US PERIPH VENOUS LOW EXTREM BI INDICATIONS: Dd+, poor GFR for CTA Chest, eval for BLE clots TECHNIQUE: Real-time imaging, as well as color and pulse Doppler interrogation, were performed of the deep veins of both legs from the inguinal ligament to the popliteal fossa, with documentation of the visualized calf veins. COMPARISON: None. FINDINGS: Right: The common femoral, femoral, and popliteal veins are normally compressible, and free of intraluminal thrombus. Color and pulse Doppler demonstrate normal phasic intravascular flow. There is normal augmentation response to distal compression maneuver. The calf veins are obscured by lower extremity edema Left: The common femoral, femoral, and popliteal veins are normally compressible, and free of intraluminal thrombus. Color and pulse Doppler demonstrate normal phasic intravascular flow. There is normal augmentation response to distal compression maneuver. The calf veins are obscured by lower extremity edema IMPRESSION: No findings of deep venous thrombosis in either lower extremity. Dictated by: Bala Youngblood M.D. on 03/16/2025 at 21:15 Approved by: Bala Youngblood M.D. on 03/16/2025 at 21:16
[2025-03-16 21:27] LABS: Base Excess VBG 9.0 mmol/L (0-4); HCO3 VBG 37 mmol/L (24-28); Oxygen Saturation VBG 54 % (70-75); PCO2 VBG 68.4 mmHg (45-50); PO2 VBG 32 mmHg (35-45); Total CO2 VBG 35 mmol/L (24-29); pH VBG 7.34 (7.33-7.43)
[2025-03-16 21:59] LABS: Troponin I 0.174 ng/mL (0.01-0.034)
[2025-03-16 23:34] LABS: Troponin I 0.156 ng/mL (0.01-0.034)
--- NOTE | 2025-03-16 23:41 | DI.CT.S_ITS ---
PROCEDURE: CT HEAD/BRAIN WO CON INDICATIONS: alt MSE, better now TECHNIQUE: Noncontrast 4.5 mm thick angled axial sections acquired from the foramen magnum to the vertex, with coronal and sagittal reformats. For radiation dose reduction, the following was used: automated exposure control, adjustment of mA and/or kV according to patient size. COMPARISON: None. FINDINGS: Image quality: Diagnostic. CSF spaces: Basal cisterns are patent. No extra-axial fluid collections. The ventricles are symmetric in size and shape. Brain: No intracranial bleeds or mass effect. Hypoattenuation of the blunt- white matter junction with associated volume loss in the middle gyrus of the left frontal lobe consistent with a prior chronic infarct. There is cerebral volume loss, with resultant ventricular and sulcal prominence. There are periventricular and deep white matter chronic small vessel ischemic changes. There is intracranial internal carotid artery atherosclerosis. Skull and face: Calvarium and visualized facial bones appear intact, without suspicious lesions. Sinuses: Visualized sinuses and mastoids are clear. IMPRESSION: No acute intracranial pathology. 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 Dictated by: Bala Youngblood M.D. on 03/17/2025 at 0:51 Approved by: Bala Youngblood M.D. on 03/17/2025 at 0:53
[2025-03-16] MEDS: FUROSEMIDE 40 MG/4 ML VIAL IV (23:54)
[2025-03-17] VITALS (38 sets, daily range): BP systolic 109–156; BP diastolic 37–68; PULSE 61–80; RESP 14–25; TEMP 35.8–36.1; O2SAT 91–99; BMI 42.0
[2025-03-17] MEDS: HEPARIN 5,000 UNIT/ML VIAL 9500 UNIT IV (00:16)
[2025-03-17] MEDS: HEPARIN DRIP 25,000 UNIT/500 ML IV.SOLN 40 UNIT IV (00:27)
[2025-03-17 00:34] LABS: PTT Partial Thromboplastin Tim 30 SECONDS (25.1-36.5)
[2025-03-17 03:40] LABS: INR 1.6 (0.9-1.3); Prothrombin Time 18.3 SECONDS (9.4-12.5)
--- NOTE | 2025-03-17 08:16 | PC.NURSE ---
Heparin stopped, per physician order. Pt eating breakfast and resting comfortably.
[2025-03-17] MEDS: APIXABAN 5 MG TABLET PO ×2 (08:21→21:00)
[2025-03-17 09:23] LABS: Add Manual Diff / Slide Review NO; Hematocrit 27.8 % (36-46); Hemoglobin 9.1 g/dL (12.0-16.0); Lymphocytes Absolute Auto 4500 /uL (1100-4500); Mean Corpuscular HGB Conc 32.8 % (30-36); Mean Corpuscular Hemoglobin 29.2 PG (26-34); Mean Corpuscular Volume 89.0 fL (80-100); Platelet Count 162 X10^3/uL (150-400)
[2025-03-17 09:36] LABS: Blood Urea Nitrogen 75 mg/dL (7-17); Calcium 9.9 mg/dL (8.4-10.2); Carbon Dioxide 32 mmol/L (22-32); Chloride 92 mmol/L (98-107); Estimated Glomerular Filt Rate 31 mL/min (>60); Glucose 164 mg/dL (70-99); Sodium 130 mmol/L (137-145)
[2025-03-17 09:37] LABS: HEMOLYSIS 165 (0-50); Potassium 5.8 mmol/L (3.4-5.1)
[2025-03-17 09:47] LABS: NT-proBNP (BNP-Adult 18+) 14900 pg/mL (<450)
[2025-03-17 09:49] LABS: Troponin I 0.152 ng/mL (0.01-0.034)
[2025-03-17 11:37] LABS: PTT Partial Thromboplastin Tim 189 SECONDS (25.1-36.5)
--- NOTE | 2025-03-17 12:52 | PM.HP.1 ---
History of Present Illness History of Present Illness Date Patient Seen: 03/17/25 Chief complaint: AMS Narrative: She was discharged from [facility] to [facility] yesterday. This morning she was bradycardic and somnolent and sent to the ER. There she woke relatively easily but was noted to have a mildly elevated troponin as well as ALFREDO and volume overload. She was treated for diastolic heart failure and possible NSTEMI while at [facility]. In addition she did have a degree of ALFREDO. She denies any chest pain or overt dyspnea. She does have edema of both legs. She denies any abdominal pain, or nausea. She does not feel confused or somnolent. She was accompanied by her son, he feels that she nearing her baseline. [facility] Social History household members: other Smoking Status: Never smoker alcohol intake: never Meds Home Medications and Allergies Home Medications ?Medication ?Instructions ?Recorded ?Confirmed ?Type amlodipine 5 mg tablet 5 mg PO DAILY 03/17/25 03/17/25 History atorvastatin 10 mg tablet 20 mg PO ONCE PM 03/17/25 03/17/25 History furosemide 20 mg tablet 20 mg PO DAILY 03/17/25 03/17/25 History gabapentin 100 mg capsule 100 mg PO DAILY 03/17/25 03/17/25 History gabapentin 300 mg capsule 300 mg PO ONCE PM 03/17/25 03/17/25 History losartan 50 mg tablet 50 mg PO DAILY 03/17/25 03/17/25 History Allergies Allergy/AdvReac Type Severity Reaction Status Date / Time tetanus and diphtheria Allergy Unknown Verified 03/16/25 17:56 toxoids Review of Systems Review of Systems Narrative: All else reviewed and otherwise unremarkable except as noted in the history and physical. Exam Vital Signs (past 8 hours): - 03/17/25 05:00 03/17/25 05:01 03/17/25 05:01 Pulse Rate 63 64 Respiratory Rate 18 17 Blood Pressure 147/60 H Pulse Oximetry 98 98 Oxygen Delivery Method Oxygen Flow Rate 03/17/25 05:30 03/17/25 05:30 03/17/25 06:00 Pulse Rate 62 Respiratory Rate 16 Blood Pressure 156/66 H 148/65 H Pulse Oximetry 99 Oxygen Delivery Method Oxygen Flow Rate 03/17/25 06:00 03/17/25 06:30 03/17/25 06:31 Pulse Rate 63 64 63 Respiratory Rate 15 24 19 Blood Pressure Pulse Oximetry 98 97 97 Oxygen Delivery Method Nasal Cannula Nasal Cannula Oxygen Flow Rate 2 2 03/17/25 06:31 03/17/25 07:00 03/17/25 07:00 Pulse Rate 63 Respiratory Rate 17 Blood Pressure 122/50 L 130/60 Pulse Oximetry 97 Oxygen Delivery Method Nasal Cannula Oxygen Flow Rate 2 03/17/25 07:30 03/17/25 07:30 03/17/25 08:00 Pulse Rate 63 62 Respiratory Rate 16 15 Blood Pressure 147/59 H Pulse Oximetry 96 97 Oxygen Delivery Method Nasal Cannula Oxygen Flow Rate 2 03/17/25 08:01 03/17/25 08:01 03/17/25 08:30 Pulse Rate 62 73 Respiratory Rate 16 24 Blood Pressure 129/56 L Pulse Oximetry 95 96 Oxygen Delivery Method Nasal Cannula Nasal Cannula Oxygen Flow Rate 2 2 03/17/25 08:30 03/17/25 09:00 03/17/25 09:01 Pulse Rate 74 74 Respiratory Rate 20 20 Blood Pressure 134/53 L Pulse Oximetry 95 Oxygen Delivery Method Nasal Cannula Oxygen Flow Rate 2 03/17/25 09:01 03/17/25 09:30 03/17/25 09:30 Pulse Rate 75 Respiratory Rate 19 Blood Pressure 127/55 L 148/65 H Pulse Oximetry Oxygen Delivery Method Oxygen Flow Rate 03/17/25 10:00 03/17/25 10:00 03/17/25 10:30 Pulse Rate 74 72 Respiratory Rate 18 16 Blood Pressure 154/68 H Pulse Oximetry 96 97 Oxygen Delivery Method Nasal Cannula Nasal Cannula Oxygen Flow Rate 2 2 03/17/25 10:30 03/17/25 11:00 03/17/25 11:00 Pulse Rate 75 Respiratory Rate 21 Blood Pressure 139/65 145/64 H Pulse Oximetry 96 Oxygen Delivery Method Nasal Cannula Oxygen Flow Rate 2 03/17/25 11:30 03/17/25 11:31 03/17/25 11:31 Pulse Rate 69 69 Respiratory Rate 20 25 H Blood Pressure 143/63 H Pulse Oximetry 96 97 Oxygen Delivery Method Oxygen Flow Rate 03/17/25 12:00 03/17/25 12:01 03/17/25 12:01 Pulse Rate 71 71 Respiratory Rate 25 H 24 Blood Pressure 110/52 L Pulse Oximetry 96 96 Oxygen Delivery Method Nasal Cannula Oxygen Flow Rate 2 Oxygen Delivery Method Nasal Cannula Oxygen Flow Rate 2 Narrative Exam Narrative: NAD, alert and oriented, fluent speech, calm. Normocephalic skull, EOMI, anicteric sclera, symmetric pupils. Oropharynx unremarkable, no droop. Neck supple, midline trachea, no adenopathy. Lungs clear, normal rate and effort. Heart regular, no murmur gallop or rub. Abdomen is soft, non distended and non tender. Extremities with gross edema. Skin is free of rash or lesions. Joints are not swollen or deformed. Judgment appears to be normal. Objective ECG Impression: Intervals [place] Rate: 60 P: 54 AL: 232 QRS: -43 QRSD: 116 T: 164 QT: 418 QTc: 418 Interpretive Statements Sinus rhythm with sinus arrhythmia with 1st degree AV block Left axis deviation Septal infarct , age undetermined ST & T wave abnormality, consider anterolateral ischemia Imaging Multiple studies: : Radiologist's impression: Head CT: No acute intracranial pathology. 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 Vascular US: No findings of deep venous thrombosis in either lower extremity. CXR: Cardiomegaly with persistent bilateral pleural effusions and findings suggestive of mild/early pulmonary edema. Concurrent infectious or inflammatory process not excluded if clinically appropriate. No new dense consolidations identified. Labs 03/17/25 09:10 03/17/25 09:10 Labs: Laboratory Results - last 24 hr 03/16/25 03/16/25 03/16/25 17:48 19:25 21:23 WBC 11.9 H RBC 3.31 L Hgb 9.5 L Hct 29.4 L MCV 88.8 MCH 28.7 MCHC 32.3 RDW 17.4 H Plt Count 188 Neut % (Auto) 33.0 L Lymph % (Auto) 57.9 H [place] % (Auto) 7.4 Eos % (Auto) 1.3 L Baso % (Auto) 0.4 Neut # (Auto) 3900 Lymph # (Auto) 6900 H [place] # (Auto) 900 Eos # (Auto) 100 Baso # (Auto) 0 PT INR APTT D-Dimer 1351 H VBG pH VBG pCO2 VBG pO2 VBG HCO3 VBG Total CO2 VBG O2 Saturation VBG Base Excess FiO2 % Sodium 132 L Potassium 5.3 H Chloride 91 L Carbon Dioxide 32 BUN 69 H Creatinine 1.82 H Estimated GFR 28 L BUN/Creatinine Ratio 37.9 H Glucose 140 H Lactate 1.2 Calcium 10.3 H Total Bilirubin 0.6 AST 29 ALT 21 Alkaline Phosphatase 52 Total Creatine Kinase 20 L Troponin I 0.162 H* 0.174 H* NT-Pro-B Natriuret Pep 88368 H Total Protein 6.6 Albumin 3.4 L Globulin 3.2 Albumin/Globulin Ratio 1.1 Procalcitonin 0.171 Ethyl Alcohol < 10 SARS-CoV-2 (PCR) Negative Influenza A (RT-PCR) Flu a negative Influenza B (RT-PCR) Flu b negative RSV (PCR) Negative 03/16/25 03/16/25 03/17/25 21:25 22:51 00:15 WBC RBC Hgb Hct MCV MCH MCHC RDW Plt Count Neut % (Auto) Lymph % (Auto) [place] % (Auto) Eos % (Auto) Baso % (Auto) Neut # (Auto) Lymph # (Auto) [place] # (Auto) Eos # (Auto) Baso # (Auto) PT 18.3 H INR 1.6 H APTT 30 D-Dimer VBG pH 7.34 VBG pCO2 68.4 H VBG pO2 32 L VBG HCO3 37 H VBG Total CO2 35 H VBG O2 Saturation 54 L VBG Base Excess 9.0 H FiO2 % 28.0 % Sodium Potassium Chloride Carbon Dioxide BUN Creatinine Estimated GFR BUN/Creatinine Ratio Glucose Lactate Calcium Total Bilirubin AST ALT Alkaline Phosphatase Total Creatine Kinase Troponin I 0.156 H* NT-Pro-B Natriuret Pep Total Protein Albumin Globulin Albumin/Globulin Ratio Procalcitonin Ethyl Alcohol SARS-CoV-2 (PCR) Influenza A (RT-PCR) Influenza B (RT-PCR) RSV (PCR) 03/17/25 03/17/25 03/17/25 09:10 09:10 09:10 WBC 8.7 RBC 3.12 L Hgb Cancelled 9.1 L Hct Cancelled 27.8 L MCV 89.0 MCH 29.2 MCHC 32.8 RDW 17.5 H Plt Count Cancelled Neut % (Auto) Lymph % (Auto) [place] % (Auto) Eos % (Auto) Baso % (Auto) Neut # (Auto) Lymph # (Auto) [place] # (Auto) Eos # (Auto) Baso # (Auto) PT INR APTT D-Dimer VBG pH VBG pCO2 VBG pO2 VBG HCO3 VBG Total CO2 VBG O2 Saturation VBG Base Excess FiO2 % Sodium Potassium Chloride Carbon Dioxide BUN Creatinine Estimated GFR BUN/Creatinine Ratio Glucose Lactate Calcium Total Bilirubin AST ALT Alkaline Phosphatase Total Creatine Kinase Troponin I NT-Pro-B Natriuret Pep Total Protein Albumin Globulin Albumin/Globulin Ratio Procalcitonin Ethyl Alcohol SARS-CoV-2 (PCR) Influenza A (RT-PCR) Influenza B (RT-PCR) RSV (PCR) 03/17/25 03/17/25 09:10 10:58 WBC RBC Hgb Hct MCV MCH MCHC RDW Plt Count 162 Neut % (Auto) 37.2 L Lymph % (Auto) 52.0 H [place] % (Auto) 7.9 Eos % (Auto) 2.2 Baso % (Auto) 0.7 Neut # (Auto) 3200 Lymph # (Auto) 4500 [place] # (Auto) 700 Eos # (Auto) 200 Baso # (Auto) 100 PT INR APTT 189 H* D D-Dimer VBG pH VBG pCO2 VBG pO2 VBG HCO3 VBG Total CO2 VBG O2 Saturation VBG Base Excess FiO2 % Sodium 130 L Potassium 5.8 H Chloride 92 L Carbon Dioxide 32 BUN 75 H Creatinine 1.66 H Estimated GFR 31 L BUN/Creatinine Ratio 45.2 H Glucose 164 H Lactate Calcium 9.9 Total Bilirubin AST ALT Alkaline Phosphatase Total Creatine Kinase Troponin I 0.152 H* NT-Pro-B Natriuret Pep 54986 H Total Protein Albumin Globulin Albumin/Globulin Ratio Procalcitonin Ethyl Alcohol SARS-CoV-2 (PCR) Influenza A (RT-PCR) Influenza B (RT-PCR) RSV (PCR) Assessment & Plan Assessment & Plan narrative: 1. Transient somnolence, improved. 2. ALFREDO with hyperkalemia, active. 3. Volume overload, active. 4. Demand ischemia. 5. Stated history of diastolic heart failure, active. 6. Diabetes, stable. 7. Morbid obesity, active. PLAN: -monitor mental status -[facility] -monitor potassium -diurese tomorrow is stable -sliding scale insulin -obtain records from [facility] Anticipate 2 midnights in the hospital, supports inpatient status. Full resuscitation. Time-Based Coding :: 35 min spent with patient and on the chart (including review of chart, obtaining history, exam, reviewing outside data, placing orders, documenting exam and treatment plan, and counseling patient) on 03/17. Quality MIPS - Admit I confirm the patient?s Advance Care Plan is present, Code status is documented, Surrogate decision maker is in patient?s record [If Yes, STOP here]: Yes MIPS - Meds 'Current medications' to include all prescriptions, [id number] products, herbals, cannabis/cannabidiol products, and vitamin/mineral/dietary (nutritional) supplements. I have utilized all available resources to obtain, update, or review the patient?s current medications. [If Yes, STOP here]: Yes
[2025-03-17 13:46] LABS: Troponin I 0.142 ng/mL (0.01-0.034)
[2025-03-17] MEDS: SODIUM ZIRCONIUM CYCLOSILICATE 10 GM POWD.PACK PO ×2 (17:27→21:00)
[2025-03-17] MEDS: ACETAMINOPHEN 325 MG TABLET 650 MG PO (17:27)
[2025-03-17] MEDS: GABAPENTIN 300 MG CAPSULE PO (21:00)
[2025-03-17] MEDS: ATORVASTATIN 20 MG TABLET PO (21:00)
[2025-03-17] MEDS: INSULIN LISPRO 100 UNIT/ML 3ML VIAL SUBCUT (22:00)
[2025-03-17 22:43] LABS: Blood Urea Nitrogen 73 mg/dL (7-17); Calcium 10.1 mg/dL (8.4-10.2); Carbon Dioxide 33 mmol/L (22-32); Chloride 91 mmol/L (98-107); Estimated Glomerular Filt Rate 30 mL/min (>60); Glucose 213 mg/dL (70-99); HEMOLYSIS < 15 (0-50); Potassium 5.2 mmol/L (3.4-5.1); Sodium 130 mmol/L (137-145)
[2025-03-17 22:55] LABS: Troponin I 0.139 ng/mL (0.01-0.034)
[2025-03-18] VITALS (8 sets, daily range): BP systolic 108–148; BP diastolic 37–52; PULSE 69–80; RESP 16–18; TEMP 35.6–36.1; O2SAT 95–99
[2025-03-18 09:04] LABS: Add Manual Diff / Slide Review NO; Hematocrit 27.8 % (36-46); Hemoglobin 8.9 g/dL (12.0-16.0); Lymphocytes Absolute Auto 3900 /uL (1100-4500); Mean Corpuscular HGB Conc 32.1 % (30-36); Mean Corpuscular Hemoglobin 28.5 PG (26-34); Mean Corpuscular Volume 88.6 fL (80-100); Platelet Count 153 X10^3/uL (150-400)
[2025-03-18] MEDS: SODIUM ZIRCONIUM CYCLOSILICATE 10 GM POWD.PACK PO ×3 (09:12→20:48)
[2025-03-18] MEDS: APIXABAN 5 MG TABLET PO ×2 (09:12→20:48)
[2025-03-18] MEDS: GABAPENTIN 100 MG CAPSULE PO (09:12)
[2025-03-18] MEDS: ACETAMINOPHEN 325 MG TABLET 650 MG PO (09:12)
[2025-03-18 09:13] LABS: Blood Urea Nitrogen 73 mg/dL (7-17); Calcium 10.1 mg/dL (8.4-10.2); Carbon Dioxide 33 mmol/L (22-32); Chloride 93 mmol/L (98-107); Estimated Glomerular Filt Rate 34 mL/min (>60); Glucose 116 mg/dL (70-99); Sodium 132 mmol/L (137-145)
[2025-03-18] MEDS: SODIUM CHLORIDE 0.9% FLUSH 10 ML IV ×2 (09:13→21:13)
[2025-03-18 09:18] LABS: HEMOLYSIS 118 (0-50); Potassium 5.5 mmol/L (3.4-5.1)
[2025-03-18] MEDS: INSULIN LISPRO 100 UNIT/ML 3ML VIAL SUBCUT ×2 (12:20→17:48)
--- NOTE | 2025-03-18 13:50 | PT.IIE ---
Current Diagnoses Heart failure, unspecified (03/17/25) Other specified abnormal findings of blood chemistry (03/17/25) Physical Therapy Inpatient Evaluation/Re-Eval M1 PT/OT-IP Prior Functional Status Start: 03/18/25 14:54 Freq: NEEDED Status: Active Protocol: Document 03/18/25 13:50 AB (Rec: 03/18/25 15:13 AB Desktop) Medical Review Prior Functional Status Medical History Yes Reviewed Communication able to make needs known; slow to response Mobility and Gait pt stated that prior to last hospitalization, she was modified independent with all mobilities and ambulation using 2 walking sticks Social History Household Members family Living Arrangements Skilled Nurse Facility Number of Floors ( 3 or More Floors Floors) Number of Stairs To pt lives on a split level house: no steps to enter her Enter/Railing? bedroom but has 16 steps B rails to go up to dining room/kitchen area Home Environment High Toilet,Walk in Shower,Built-In Shower Seat Home Equipment Front Wheel Walker,Hand Held Shower,Grab Bars Near Toilet,Grab Bars In Shower Additional Social pt stated that she lives with her daughter and her History Comment daughter's family pt has walking sticks M2 PT-IP Current Condition Start: 03/18/25 14:54 Freq: NEEDED Status: Active Protocol: Document 03/18/25 13:50 AB (Rec: 03/18/25 15:13 AB Desktop) Physical Therapy Current Condition Current Condition Evaluation Date 03/18/25 Treatment Diagnosis CHF; difficulty in walking Onset Date 03/17/25 M3 PT-IP Subjective Start: 03/18/25 14:54 Freq: NEEDED Status: Active Protocol: Document 03/18/25 13:50 AB (Rec: 03/18/25 15:13 AB Desktop) Subjective Physical Therapy Visit Type Type Initial Evaluation Visit Start Time 13:50 Visit Stop Time 14:40 Number of LEARNING SUPPORT RESOURCE ROOM TEACHER Visits 0 Physical Therapy Visit Comments Patient Comments agreeable to do PT M4 PT-IP Mobility and Gait Start: 03/18/25 14:54 Freq: NEEDED Status: Active Protocol: Document 03/18/25 13:50 AB (Rec: 03/18/25 15:13 AB Desktop) PT-Bed Mobility Assessment Supine to Sit Supine to Sit Maximum Assistance,2 Person Assistance,Head of Bed Elevated,Bedrails Scooting Scooting to Edge of Maximum Assistance Bed PT-Transfer Assessment Sit to and From Stand Sit to and from Maximum Assistance,2 Person Assistance,Use of Upper Stand Extremities Equipment Transfer Assistive Gait Belt,Front Wheeled Walker Device Orthotic/Prosthetic No Devices or Brace: Transfers Transfer Destination Chair Transfer Technique Stand Step Pivot Transfer Ability Level of Assist Maximum Assistance,2 Person Assistance,Use of Upper Extremities Comments Mobility Comments pt in bed. grand daughter in room. pt agreed to do PT. obtained PLOF and home set up. pt is slightly drowsy and slow to respond to questions. completed supine to sit max A x 2 and max cues. HOB elevated and pt used bed rail to assist. pt needed increase time to complete. able to sit on EOB initial mod A and then min A after repositioning to decrease retrolean. cues provided max A x 1-2 for scooting to EOB. sit to stand max A x 2 and max cues. able to stand max A using FWW for support while NAC assisted pt with hygiene care. pt completed step transfer to chair using FWW max A x 2 and max cues. total A x 2 for positioning on the chair. call light and table placed next to pt. PT-Balance Assessment Sitting Balance and Reactions Static Sitting Fair Balance Ability Dynamic Sitting Poor Balance Ability Standing Balance and Reactions Static Standing Poor Balance Ability Dynamic Standing Poor Balance Ability Device Used FWW M5 PT-IP Objective Assessments Start: 03/18/25 14:54 Freq: NEEDED Status: Active Protocol: Document 03/18/25 13:50 AB (Rec: 03/18/25 15:13 AB Desktop) Orientation Orientation/Cognition Level of Alertness Alert Orientation Name Language Function Hard of Hearing Ability Safety Awareness Decreased Safety Awareness Memory Description Short Term Impaired,Shelter Impaired Strength Lower Extremity Strength Assessment Bilaterally Impaired Hip 3-/5 Knee 3+/5 Muscle Tone Muscle Tone WNL Yes M6 PT-IP Treatment Start: 03/18/25 14:54 Freq: NEEDED Status: Active Protocol: Document 03/18/25 13:50 AB (Rec: 03/18/25 15:13 AB Desktop) Physical Therapy Treatment Education Education Provided Safety M7 PT-IP Assessment and Plan Start: 03/18/25 14:54 Freq: NEEDED Status: Active Protocol: Document 03/18/25 13:50 AB (Rec: 03/18/25 15:13 AB Desktop) PT Summary Assessment and Plan Potential Rehabilitation Fair Potential Status of Condition Evolving at Evaluation Summary Impairments ROM,Strength,Balance,Coordination,Sensation,Cognition, Bed Mobility,Transfers,Gait,Activity Tolerance Assessment Summary pt is a 79 y/o F who is admitted for CHF. pt was just hospitalized at [facility]: 02/27/25 to 03/16/25 and was d/c'd to [facility]. pt with low HR and difficulty to arouse at SNF and was transferred here at [facility]. pt requiring max A x 2 for bed mobility and transfers using FWW and unable to ambulate at this time. pt will require SNF rehab to improve overall strength and mobility. Goals Bed Mobility Goal Minimal Assistance Transfer Goal Minimal Assistance,Front Wheeled Walker Gait Goal Minimal Assistance,Front Wheel Walker Gait Distance 25 Other Goals improve bed mobility, transfers, ambulation using FWW ~ 100 ft SBA up/down 16 steps B rails SBA Days to Meet Goals 10 Frequency of Treatment Frequency Of Once a Day Treatment Treatment Plan Physical Therapy Bed Mobility Training,Transfer Training,Gait Training, Treatment Plan Therapeutic Exercise,Balance Retraining,Discharge Planning,Hot or Cold Pack,Neuromuscular Re-ed, Coordination Retraining Recommendations To Nursing Amount of Assist Mechanical Lift Needed Discharge Recommendations PT Discharge SNF Rehab Recommendations Transportation Needs Wheelchair/Cabulance at Discharge - PT assist 2
--- NOTE | 2025-03-18 16:16 | CM.DANOTE ---
DCP Assessment note-brief Pt is a 79yo F admitted with increasing tropes and SOB. recent stay at [facility] from 02/27-03/16. discharged from there to where she was there for a day and then sent to this ED for AMS/change in LOC. CLOTH PATTERN MAKER reviewed EMR. per November at , can accept back just need new ins auth from [facility]. need PT eval for auth. PT eval placed, rec SNF. CLOTH PATTERN MAKER sent updated clinicals to November to submit for auth. DC Timeline unclear. no PASRR needed unless change in bx or medication. P: dc to pending auth/medical stability. timeline unknown. will continue to follow closely for DCP coordination WAN [place] Discharge Planning/Care Management CM Discharge Assessment Start: 03/17/25 12:18 Freq: Status: Active Protocol: Document 03/18/25 16:14 SL (Rec: 03/18/25 16:16 SL [id number]) Discharge Planning Assessment Assigned Discharge WAN Scherer Irrigator Sprinkling System Provider Tamara Sykes Insurance [facility] DPOA/Assigned family Ansley Designee Name Contact Information [phone] Advance Directives? No: . History Provided By Patient,Family Member,Medical Record Prior Living Skilled Nurse Facility Arrangements Household Members family Patient/Family Custodial Facility Preference Discharge Plan Custodial Facility Referrals Initiated Custodial If patient plan is not needed SNF: Has PASSR been completed? Review Status In Process Please Provide Date 03/18/25 Initial DC Assessment Was Performed Next Review Type Continued Stay Review
--- NOTE | 2025-03-18 18:16 | P.PN_ITS ---
Subjective Subjective Interval history: 79-year-old female with hospitalization February 27 through March 16 at [facility] for new onset of systolic congestive heart failure, paroxysmal atrial fibrillation, metabolic encephalopathy and found to have chronic elevated troponin. She was discharged March 16 to [facility] nursing [facility]. She developed transient bradycardia 2 heart rate of 30. EMS was called but on arrival her heart rate was in the 60s to 70s. However, they found her to be difficult to arouse. They subsequently transported her to the emergency department[place] [address], troponin 0.152, sodium 130, BUN 75, creatinine 1.66, D-dimer 1351. Chest x-ray revealed bibasilar pleural effusions and cardiomegaly. She was admitted for ALFREDO with hyperkalemia, volume overload, demand ischemia, and transient somnolence which was felt to be resolved. She was given Lokelma with a plan for diuresis as well. Today, she is quite somnolent. She tells me that she is ?fine?. She reports that she is drowsy because she could not sleep last night. Earlier in the day, she asked the nurse to get bowel medication as she was worried about getting constipated. Exam Vital Signs (past 8 hours): - 03/18/25 12:00 03/18/25 16:00 Temperature 97.0 F L 96.7 F L Pulse Rate 78 71 Respiratory Rate 18 17 Blood Pressure 126/42 L 148/52 H Pulse Oximetry 98 99 Oxygen Flow Rate 2 2 Oxygen Delivery Method Nasal Cannula Oxygen Flow Rate 2 Narrative Exam Narrative: GEN: Chronically ill-appearing elderly female, somnolent and oriented to self, somewhat to situation, NAD HEENT:NC, Face symmetric CHEST: Respiratory excursions symmetric, crackles to the right base, otherwise CTAB CV: RRR, no M/R/G ABD: Soft, obese, distended, NT/ND, BT present in all 4 quadrants, body habitus limits exam EXTR: warm, well perfused, no C/C/1+ bilateral lower extremity pitting edema, she has mild pitting edema to the left upper extremity as well SKIN: warm and dry, no rash NEURO: Somnolent, able to answer questions appropriately, but with limited responses Objective Labs 03/18/25 08:30 03/18/25 08:30 Labs: Laboratory Results - last 24 hr 03/17/25 03/17/25 03/18/25 21:48 21:59 07:34 WBC RBC Hgb Hct MCV MCH MCHC RDW Plt Count Neut % (Auto) Lymph % (Auto) [place] % (Auto) Eos % (Auto) Baso % (Auto) Neut # (Auto) Lymph # (Auto) [place] # (Auto) Eos # (Auto) Baso # (Auto) Sodium 130 L Potassium 5.2 H Chloride 91 L Carbon Dioxide 33 H BUN 73 H Creatinine 1.71 H Estimated GFR 30 L BUN/Creatinine Ratio 42.7 H Glucose 213 H POC Whole Bld Glucose 219 H 111 H D Calcium 10.1 Troponin I 0.139 H* 03/18/25 03/18/25 03/18/25 08:30 11:06 16:56 WBC 7.6 RBC 3.14 L Hgb 8.9 L Hct 27.8 L MCV 88.6 MCH 28.5 MCHC 32.1 RDW 17.3 H Plt Count 153 Neut % (Auto) 36.8 L Lymph % (Auto) 51.6 H [place] % (Auto) 8.3 Eos % (Auto) 2.4 Baso % (Auto) 0.9 Neut # (Auto) 2800 Lymph # (Auto) 3900 [place] # (Auto) 600 Eos # (Auto) 200 Baso # (Auto) 100 Sodium 132 L Potassium 5.5 H Chloride 93 L Carbon Dioxide 33 H BUN 73 H Creatinine 1.56 H Estimated GFR 34 L BUN/Creatinine Ratio 46.8 H Glucose 116 H POC Whole Bld Glucose 163 H 170 H Calcium 10.1 Troponin I [facility] Social History household members: family Smoking Status: Never smoker alcohol intake: never Assessment & Plan Assessment & Plan narrative: 1. Acute metabolic encephalopathy Unclear etiology. Her white blood cell count is within normal limits. While she does have an electrolyte derangement, it is not enough to explain her degree of somnolence. She does take gabapentin, but it is fairly low dose. She does not have any opiates ordered. Head CT was negative for acute pathology. There is no evidence of pneumonia on her chest x-ray. Blood cultures were also negative. Will send a UA and culture as well. ABG has also been ordered. 2. Systolic congestive heart failure BNP was quite elevated at almost 15,000. Chest x-ray did show bilateral pleural effusions and cardiomegaly. Will give a dose of IV furosemide this afternoon and follow her response. 3. ALFREDO with hyperkalemia She did not have a significant response to the Lokelma. Anticipate she will have improvement with furosemide diuresis. Sodium is mildly improved at 132. Creatinine is mildly improved at 1.56, down from 1.71. Will monitor closely with diuresis. 4. Demand ischemia Troponin was 0.142 on admission. Upon recheck it had improved at 0.139. She had a full workup at [facility]. Will defer another echocardiogram. 5. Diabetes mellitus type 2 Blood sugars have been reasonably stable ranging from 111-219. 6. Class 3 obesity BMI is 42.0. She is a risk for morbidity and mortality based on her obesity. Would benefit from weight reduction. Code status Full Prophylaxis On apixaban Disposition Continued acute care Time-Based Coding :: [TOTAL MINUTES] spent with patient and on the chart (including review of chart, obtaining history, exam, reviewing outside data, placing orders, documenting exam and treatment plan, and counseling patient) on [DATE]. Quality VTE Deep Vein Thrombosis/Pulmonary Embolism Present on Admission: No
[2025-03-18] MEDS: FUROSEMIDE 40 MG/4 ML VIAL IV (19:01)
[2025-03-18 19:09] LABS: HCO3 ABG 34 mmol/L (23-27); Oxygen Saturation ABG 96 % (95-100); PCO2 ABG 67.1 mmHg (35-45); PO2 ABG 94 mmHg (80-100); TCO2 ABG 33 mmol/L (23-27)
[2025-03-18] MEDS: ATORVASTATIN 20 MG TABLET PO (20:48)
[2025-03-18] MEDS: GABAPENTIN 300 MG CAPSULE PO (20:48)
[2025-03-19] VITALS (9 sets, daily range): BP systolic 117–155; BP diastolic 39–56; PULSE 80–90; RESP 14–19; TEMP 35.7–36.2; O2SAT 96–99
[2025-03-19 02:28] LABS: Appearance Urine UA CLEAR; Bilirubin Urine UA NEGATIVE (NEGATIVE); Color Urine UA YELLOW; Glucose Urine UA NEGATIVE (Negative); Ketones Urine UA NEGATIVE (NEGATIVE); Leukocyte Esterase Urine UA TRACE (NEGATIVE); Nitrite Urine UA NEGATIVE (Negative); Occult Blood Urine UA 2+ (Negative); Protein Urine UA NEGATIVE (Negative); Specific Gravity Urine UA 1.010 (1.000-1.035); Urobilinogen Urine UA 0.2 E.U./dL (0.2)
[2025-03-19 02:29] LABS: pH Urine UA 5.5 (4.5-8.0)
[2025-03-19 02:33] LABS: Culture Indicated Urine Cult Not Indicated
[2025-03-19 05:46] LABS: Add Manual Diff / Slide Review NO; Hematocrit 27.0 % (36-46); Hemoglobin 8.9 g/dL (12.0-16.0); Lymphocytes Absolute Auto 3600 /uL (1100-4500); Mean Corpuscular HGB Conc 33.1 % (30-36); Mean Corpuscular Hemoglobin 29.5 PG (26-34); Mean Corpuscular Volume 89.1 fL (80-100); Platelet Count 139 X10^3/uL (150-400)
[2025-03-19 05:51] LABS: Blood Urea Nitrogen 67 mg/dL (7-17); Calcium 10.1 mg/dL (8.4-10.2); Carbon Dioxide 32 mmol/L (22-32); Chloride 93 mmol/L (98-107); Estimated Glomerular Filt Rate 37 mL/min (>60); Glucose 123 mg/dL (70-99); HEMOLYSIS 25 (0-50); Potassium 4.7 mmol/L (3.4-5.1); Sodium 134 mmol/L (137-145)
[2025-03-19] MEDS: APIXABAN 5 MG TABLET PO ×2 (08:53→21:00)
[2025-03-19] MEDS: SODIUM ZIRCONIUM CYCLOSILICATE 10 GM POWD.PACK PO (08:53)
[2025-03-19] MEDS: GABAPENTIN 100 MG CAPSULE PO (08:53)
[2025-03-19] MEDS: SODIUM CHLORIDE 0.9% FLUSH 10 ML IV ×2 (08:53→21:00)
[2025-03-19] MEDS: FUROSEMIDE 40 MG/4 ML VIAL IV (10:17)
--- NOTE | 2025-03-19 12:10 | PT.IPTN ---
Current Diagnoses Heart failure, unspecified (03/17/25) Disorder of kidney and ureter, unspecified (03/17/25) Other specified abnormal findings of blood chemistry (03/17/25) Physical Therapy Treatment Note M2 PT-IP Current Condition Start: 03/18/25 14:54 Freq: NEEDED Status: Active Protocol: Document 03/19/25 12:02 [facility] (Rec: 03/19/25 12:10 [facility] [id number]) Physical Therapy Current Condition Current Condition Evaluation Date 03/18/25 Treatment Diagnosis CHF; difficulty in walking Onset Date 03/17/25 M3 PT-IP Subjective Start: 03/18/25 14:54 Freq: NEEDED Status: Active Protocol: Document 03/19/25 12:02 [facility] (Rec: 03/19/25 12:10 [facility] [id number]) Subjective Physical Therapy Visit Type Type Treatment Note Visit Start Time 10:45 Visit Stop Time 12:00 Notes pt had to have multiple changes during treatment and worked with nursing informatics specialist during treament M4 PT-IP Mobility and Gait Start: 03/18/25 14:54 Freq: NEEDED Status: Active Protocol: Document 03/19/25 12:02 [facility] (Rec: 03/19/25 12:10 [facility] [id number]) PT-Bed Mobility Assessment Supine to Sit Supine to Sit Maximum Assistance,2 Person Assistance,Head of Bed Elevated,Bedrails Sit to Supine Sit to Supine Total Assistance,2 Person Assistance Scooting Scooting to Edge of Maximum Assistance Bed PT-Transfer Assessment Sit to and From Stand Sit to and from Maximum Assistance Stand Equipment Transfer Assistive Mechanical Lift Device Orthotic/Prosthetic No Devices or Brace: Transfers Transfer Destination Chair Transfer Ability Level of Assist Maximum Assistance,2 Person Assistance,Use of Upper Extremities Comments Mobility Comments a significant amount of time was spent on bed mobility as pts skin was broken down and she needed dressings as well as 2 brief changes during time spent. Max x 2 to roll to each side multiple times for cleaning and brief changing. Max A to sit at edge of bed and pt not able to stand with max A x2. Yaw was used to transfer to bed side chair. Once she was seated she was able to stand with fww with Max A x 2. She stood for approx 2 min with fww. She may be able to transfer back to bed with fww and max A x2 PT-Balance Assessment Sitting Balance and Reactions Static Sitting Fair Balance Ability Dynamic Sitting Poor Balance Ability Standing Balance and Reactions Static Standing Poor Balance Ability Dynamic Standing Poor Balance Ability Device Used FWW M5 PT-IP Objective Assessments Start: 03/18/25 14:54 Freq: NEEDED Status: Active Protocol: Document 03/19/25 12:02 [facility] (Rec: 03/19/25 12:10 [facility] [id number]) Orientation Orientation/Cognition Level of Alertness Alert Orientation Name,Birthday,Place Language Function Hard of Hearing Ability Safety Awareness Decreased Safety Awareness Memory Description Short Term Impaired,[place] Impaired M6 PT-IP Treatment Start: 03/18/25 14:54 Freq: NEEDED Status: Active Protocol: Document 03/19/25 12:02 [facility] (Rec: 03/19/25 12:10 [facility] [id number]) Physical Therapy Treatment Education Education Provided Safety Other Treatments Other Treatment assisted nursing for skin inspection, brief changes due Performed to max A x 2 to roll in bed M7 PT-IP Assessment and Plan Start: 03/18/25 14:54 Freq: NEEDED Status: Active Protocol: Document 03/19/25 12:02 [facility] (Rec: 03/19/25 12:10 [facility] [id number]) PT Summary Assessment and Plan Potential Rehabilitation Fair Potential Status of Condition Evolving at Evaluation Summary Impairments ROM,Strength,Balance,Coordination,Sensation,Cognition, Bed Mobility,Transfers,Gait,Activity Tolerance Assessment Summary pt is a 79 y/o F who is admitted for CHF. pt was just hospitalized at [facility]: 02/27/25 to 03/16/25 and was d/c'd to [facility]. pt with low HR and difficulty to arouse at SNF and was transferred here at [facility]. pt requiring max A x 2 for bed mobility and yaw lift was used to transfer to bed side chair. Once at bed side chair she was able to stand with max A x 2 for 2 min. She may be able to transfer back to bed using fww and max A x 2 pt will require SNF rehab to improve overall strength and mobility Goals Bed Mobility Goal Minimal Assistance Transfer Goal Minimal Assistance,Front Wheeled Walker Gait Goal Minimal Assistance,Front Wheel Walker Gait Distance 25 Other Goals improve bed mobility, transfers, ambulation using FWW ~ 100 ft SBA up/down 16 steps B rails SBA Days to Meet Goals 10 Frequency of Treatment Frequency Of Once a Day Treatment Treatment Plan Physical Therapy Bed Mobility Training,Transfer Training,Gait Training, Treatment Plan Therapeutic Exercise,Balance Retraining,Discharge Planning,Hot or Cold Pack,Neuromuscular Re-ed, Coordination Retraining Recommendations To Nursing Amount of Assist 2 Person Assist Needed Discharge Recommendations PT Discharge SNF Rehab Recommendations Transportation Needs Wheelchair/Cabulance at Discharge - PT assist 2
[2025-03-19] MEDS: INSULIN LISPRO 100 UNIT/ML 3ML VIAL SUBCUT ×2 (12:19→21:27)
[2025-03-19] MEDS: NYSTATIN POWDER 15GM 1 APPLIC TOP (14:30)
--- NOTE | 2025-03-19 15:28 | CM.DPNOTE ---
DCP note H[employer] MILL SHEARER reviewed EMR per November at , started auth. per provider, unclear dc timeline. no PASRR needed P: anticipate return to when auth secured and pt medically stable. will need to follow up with pt and family Thursday WAN [place]
--- NOTE | 2025-03-19 16:39 | P.PN_ITS ---
Subjective Subjective Interval history: 79-year-old female with hospitalization February 27 through March 16 at [facility] for new onset of systolic congestive heart failure, paroxysmal atrial fibrillation, metabolic encephalopathy and found to have chronic elevated troponin. She was discharged March 16 to [facility] custodial Facility. She developed transient bradycardia 2 heart rate of 30. EMS was called but on arrival her heart rate was in the 60s to 70s. However, they found her to be difficult to arouse. They subsequently transported her to the emergency department[place] [address], troponin 0.152, sodium 130, BUN 75, creatinine 1.66, D-dimer 1351. Chest x-ray revealed bibasilar pleural effusions and cardiomegaly. She was admitted for ALFREDO with hyperkalemia, volume overload, demand ischemia, and transient somnolence which was felt to be resolved. She was given Lokelma with a plan for diuresis as well. Yesterday, she remained intermittently somnolent. An ABG was done which was stable and consistent with chronic CO2 retention. Today, she is awake, alert, interactive. She tells me she is a very heavy sleeper and people assume that she is altered when she is sleeping. She states that is why she was sent from [facility] to our hospital's emergency department as well. She is able to relay her entire history starting from when she developed symptoms and went to see her primary care provider on [facility]. She denies any significant shortness of breath or chest pain. She does note that her daughter was very unhappy with the care she received at [facility]. Exam Vital Signs (past 8 hours): - 03/19/25 09:00 03/19/25 12:00 Temperature 96.2 F L Pulse Rate 83 Respiratory Rate 15 Blood Pressure 144/48 H Pulse Oximetry 98 97 Oxygen Delivery Method Nasal Cannula Oxygen Flow Rate 2 2 Oxygen Delivery Method Nasal Cannula Oxygen Flow Rate 2 Narrative Exam Narrative: GEN: Chronically ill-appearing alert and oriented x3, NAD HEENT:NC, Face symmetric CHEST: Respiratory excursions symmetric, bibasilar crackles, otherwise CTAB CV: RRR, no M/R/G ABD: Soft, obese, distended, NT/ND, BT present in all 4 quadrants, body habitus limits exam EXTR: warm, well perfused, no C/C/1+ bilateral lower extremity pitting edema SKIN: warm and dry, no rash NEURO: A&O x3, nonfocal Objective Labs 03/19/25 05:10 03/19/25 05:10 Labs: Laboratory Results - last 24 hr 03/18/25 03/18/25 03/18/25 16:56 18:56 20:48 WBC RBC Hgb Hct MCV MCH MCHC RDW Plt Count Neut % (Auto) Lymph % (Auto) [place] % (Auto) Eos % (Auto) Baso % (Auto) Neut # (Auto) Lymph # (Auto) [place] # (Auto) Eos # (Auto) Baso # (Auto) ABG pH 7.32 L ABG pCO2 67.1 H* ABG pO2 94 ABG HCO3 34 H ABG Total CO2 33 H ABG O2 Saturation 96 ABG Base Excess 4.8 H FiO2 % 28 % Sodium Potassium Chloride Carbon Dioxide BUN Creatinine Estimated GFR BUN/Creatinine Ratio Glucose POC Whole Bld Glucose 170 H 166 H Calcium Urine Color Urine Appearance Urine pH Ur Specific [place] Urine Protein Urine Glucose (UA) Urine Ketones Urine Occult Blood Urine Nitrate Urine Bilirubin Urine Urobilinogen Ur Leukocyte Esterase Urine RBC Urine WBC Ur Squamous Epith Cells Urine Bacteria Ur Culture Indicated? Vol Urine Centrifuged 03/19/25 03/19/25 03/19/25 02:19 05:10 07:45 WBC 7.0 RBC 3.04 L Hgb 8.9 L Hct 27.0 L MCV 89.1 MCH 29.5 MCHC 33.1 RDW 17.0 H Plt Count 139 L Neut % (Auto) 37.9 L Lymph % (Auto) 52.0 H [place] % (Auto) 7.8 Eos % (Auto) 2.0 Baso % (Auto) 0.3 Neut # (Auto) 2700 Lymph # (Auto) 3600 [place] # (Auto) 500 Eos # (Auto) 100 Baso # (Auto) 0 ABG pH ABG pCO2 ABG pO2 ABG HCO3 ABG Total CO2 ABG O2 Saturation ABG Base Excess FiO2 % Sodium 134 L Potassium 4.7 Chloride 93 L Carbon Dioxide 32 BUN 67 H Creatinine 1.44 H Estimated GFR 37 L BUN/Creatinine Ratio 46.5 H Glucose 123 H POC Whole Bld Glucose 128 H Calcium 10.1 Urine Color Yellow Urine Appearance Clear Urine pH 5.5 Ur Specific [place] 1.010 Urine Protein Negative Urine Glucose (UA) Negative Urine Ketones Negative Urine Occult Blood 2+ H Urine Nitrate Negative Urine Bilirubin Negative Urine Urobilinogen 0.2 Ur Leukocyte Esterase Trace H Urine RBC 1-5/hpf Urine WBC 1-5/hpf Ur Squamous Epith Cells 1-5 /hpf Urine Bacteria None seen Ur Culture Indicated? Cult not indicated Vol Urine Centrifuged 10ml (spun) 03/19/25 12:09 WBC RBC Hgb Hct MCV MCH MCHC RDW Plt Count Neut % (Auto) Lymph % (Auto) [place] % (Auto) Eos % (Auto) Baso % (Auto) Neut # (Auto) Lymph # (Auto) [place] # (Auto) Eos # (Auto) Baso # (Auto) ABG pH ABG pCO2 ABG pO2 ABG HCO3 ABG Total CO2 ABG O2 Saturation ABG Base Excess FiO2 % Sodium Potassium Chloride Carbon Dioxide BUN Creatinine Estimated GFR BUN/Creatinine Ratio Glucose POC Whole Bld Glucose 159 H Calcium Urine Color Urine Appearance Urine pH Ur Specific [place] Urine Protein Urine Glucose (UA) Urine Ketones Urine Occult Blood Urine Nitrate Urine Bilirubin Urine Urobilinogen Ur Leukocyte Esterase Urine RBC Urine WBC Ur Squamous Epith Cells Urine Bacteria Ur Culture Indicated? Vol Urine Centrifuged [facility] Social History household members: family Smoking Status: Never smoker alcohol intake: never Assessment & Plan Assessment & Plan narrative: 1. Acute metabolic encephalopathy Resolved. This was likely secondary to her sleep pattern, rather than an acute abnormality. She notes this baseline for her. No further evaluation needed. 2. Systolic congestive heart failure BNP was quite elevated at almost 15,000. Chest x-ray did show bilateral pleural effusions and cardiomegaly. She responded well to a dose of IV furosemide yesterday afternoon. Will give an additional dose this morning. 3. ALFREDO with hyperkalemia Improved after furosemide last evening. Her hyperkalemia has resolved. Creatinine is improved at 1.44, down from 1.56. Will continue to monitor response to diuresis. 4. Demand ischemia Troponin was 0.142 on admission. Upon recheck it had improved at 0.139. She had a full workup at [facility]. Will defer another echocardiogram. 5. Diabetes mellitus type 2 Blood sugars have been reasonably stable ranging from 123-170 6. Class 3 obesity BMI is 42.0. She is a risk for morbidity and mortality based on her obesity. Would benefit from weight reduction. Code status Full Prophylaxis On apixaban Disposition Continued acute care. Await acceptance to custodial. Social work had been working on repeat authorization to return to [facility]. Time-Based Coding :: [TOTAL MINUTES] spent with patient and on the chart (including review of chart, obtaining history, exam, reviewing outside data, placing orders, documenting exam and treatment plan, and counseling patient) on [DATE]. Quality VTE Deep Vein Thrombosis/Pulmonary Embolism Present on Admission: No
[2025-03-19] MEDS: GABAPENTIN 300 MG CAPSULE PO (21:00)
[2025-03-19] MEDS: ATORVASTATIN 20 MG TABLET PO (21:00)
[2025-03-20] VITALS: BP 130/44; PULSE 88; RESP 18; TEMP 35.7; O2SAT 97
[2025-03-20 04:00] VITALS: BP 143/49; PULSE 84; RESP 18; TEMP 35.7; O2SAT 98
[2025-03-20 05:36] LABS: Add Manual Diff / Slide Review NO; Hematocrit 26.2 % (36-46); Hemoglobin 8.6 g/dL (12.0-16.0); Lymphocytes Absolute Auto 3100 /uL (1100-4500); Mean Corpuscular HGB Conc 32.9 % (30-36); Mean Corpuscular Hemoglobin 29.2 PG (26-34); Mean Corpuscular Volume 88.9 fL (80-100); Platelet Count 129 X10^3/uL (150-400)
[2025-03-20 05:48] LABS: Blood Urea Nitrogen 65 mg/dL (7-17); Calcium 10.0 mg/dL (8.4-10.2); Carbon Dioxide 34 mmol/L (22-32); Chloride 94 mmol/L (98-107); Estimated Glomerular Filt Rate 39 mL/min (>60); Glucose 125 mg/dL (70-99); HEMOLYSIS 39 (0-50); Potassium 4.5 mmol/L (3.4-5.1); Sodium 135 mmol/L (137-145)
--- NOTE | 2025-03-20 07:51 | PM.PN.1 ---
Subjective Subjective Interval history: Hospital course: 79-year-old female with hospitalization February 27 through March 16 at [facility] for new onset of systolic congestive heart failure, paroxysmal atrial fibrillation, metabolic encephalopathy and found to have chronic elevated troponin. She was discharged March 16 to [facility] longterm Facility. She developed transient bradycardia 2 heart rate of 30. EMS was called but on arrival her heart rate was in the 60s to 70s. However, they found her to be difficult to arouse. They subsequently transported her to the emergency department. [place] [address], troponin 0.152, sodium 130, BUN 75, creatinine 1.66, D-dimer 1351. Chest x-ray revealed bibasilar pleural effusions and cardiomegaly. She was admitted for ALFREDO with hyperkalemia, volume overload, demand ischemia, and transient somnolence which was felt to be resolved. She was given Lokelma with a plan for diuresis as well. Yesterday, she remained intermittently somnolent. An ABG was done which was stable and consistent with chronic CO2 retention. [facility] discharge summary of hospital course: Patient was admitted for new onset heart failure and treated with diuresis. She was started on GDM T, but there are limitations due to soft blood pressures. Her admission was complicated by ALFERDO and metabolic encephalopathy. There is a question of urinary tract infection. In addition, she was in PAF and started on anticoagulation. The patient was discharge to longterm facility. Her chest x-ray revealed a small right pleural effusion [place]NP was [id number] initially. Echo revealed EF which was normal with grade 2 diastolic dysfunction. She was chronic kidney disease stage 3 with a suspected baseline creatinine of 1.21.4. She did initially have hypoxic and hypercapnic respiratory failure as well. He was mentioned him and ESBL urinary tract infection. She was treated with ertapenem from March 07 through March 09 with described completed course of therapy. 03/19: Today, she is awake, alert, interactive. She tells me she is a very heavy sleeper and people assume that she is altered when she is sleeping. She states that is why she was sent from [facility] to our hospital's emergency department as well. She is able to relay her entire history starting from when she developed symptoms and went to see her primary care provider on [facility]. She denies any significant shortness of breath or chest pain. She does note that her daughter was very unhappy with the care she received at [facility]. S: She was no real complaints today, denies dyspnea. She was on oxygen. She does have chronic leg edema and a Munoz catheter is in place. She would rectal blood this morning and has a history of hemorrhoids. O: NAD, alert and oriented. Fluent speech. Lungs are clear, normal rate and effort. Heart is regular, no murmur gallop or rub. Abdomen is soft, non distended. Extremities are free of edema. IMAGING: Head CT: No acute intracranial pathology. 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 Vascular US: No findings of deep venous thrombosis in either lower extremity. CXR: Cardiomegaly with persistent bilateral pleural effusions and findings suggestive of mild/early pulmonary edema. Concurrent infectious or inflammatory process not excluded if clinically appropriate. No new dense consolidations identified. A/P: 1. Transient somnolence, resolved. 2. ALFREDO with hyperkalemia, improved. 3. Volume overload, active. 4. Demand ischemia. Improved. 5. Stated history of diastolic heart failure, active. 6. Diabetes, stable. 7. Morbid obesity, active. 8. Episode of rectal blood on March 20, history of hemorrhoids. PLAN: -monitor mental status -Lokelma completed. -monitor potassium -diurese tomorrow is stable -monitor hemoglobin. Exam Vital Signs (past 8 hours): - 03/20/25 00:00 03/20/25 04:00 Temperature 96.3 F L 96.3 F L Pulse Rate 88 84 Respiratory Rate 18 18 Blood Pressure 130/44 L 143/49 H Pulse Oximetry 97 98 Oxygen Flow Rate 2 2 Fraction of Inspired Oxygen 28 SaO2/FiO2 Ratio 350 Oxygen Delivery Method Nasal Cannula Oxygen Flow Rate 2 Objective Labs 03/20/25 04:55 03/20/25 04:55 Labs: Laboratory Results - last 24 hr 03/19/25 03/19/25 03/19/25 07:45 12:09 16:50 WBC RBC Hgb Hct MCV MCH MCHC RDW Plt Count Neut % (Auto) Lymph % (Auto) [place] % (Auto) Eos % (Auto) Baso % (Auto) Neut # (Auto) Lymph # (Auto) [place] # (Auto) Eos # (Auto) Baso # (Auto) Sodium Potassium Chloride Carbon Dioxide BUN Creatinine Estimated GFR BUN/Creatinine Ratio Glucose POC Whole Bld Glucose 128 H 159 H 158 H Calcium 03/19/25 03/20/25 20:16 04:55 WBC 6.7 RBC 2.94 L Hgb 8.6 L Hct 26.2 L MCV 88.9 MCH 29.2 MCHC 32.9 RDW 16.8 H Plt Count 129 L Neut % (Auto) 41.7 L Lymph % (Auto) 47.0 H Lucas % (Auto) 8.8 Eos % (Auto) 1.7 L Baso % (Auto) 0.8 Neut # (Auto) 2800 Lymph # (Auto) 3100 Lucas # (Auto) 600 Eos # (Auto) 100 Baso # (Auto) 100 Sodium 135 L Potassium 4.5 Chloride 94 L Carbon Dioxide 34 H BUN 65 H Creatinine 1.38 H Estimated GFR 39 L BUN/Creatinine Ratio 47.1 H Glucose 125 H POC Whole Bld Glucose 156 H Calcium 10.0 PFSH Social History household members: family Smoking Status: Never smoker alcohol intake: never Assessment & Plan Time-Based Coding :: [TOTAL MINUTES] spent with patient and on the chart (including review of chart, obtaining history, exam, reviewing outside data, placing orders, documenting exam and treatment plan, and counseling patient) on [DATE]. Quality VTE Deep Vein Thrombosis/Pulmonary Embolism Present on Admission: No
[2025-03-20 08:00] VITALS: BP 124/41; PULSE 83; RESP 16; TEMP 35.9; O2SAT 99
[2025-03-20] MEDS: INSULIN LISPRO 100 UNIT/ML 3ML VIAL SUBCUT ×2 (08:27→17:27)
[2025-03-20] MEDS: SODIUM CHLORIDE 0.9% FLUSH 10 ML IV ×2 (08:28→21:23)
[2025-03-20] MEDS: FUROSEMIDE 40 MG/4 ML VIAL IV (09:24)
[2025-03-20] MEDS: GABAPENTIN 100 MG CAPSULE PO (09:24)
[2025-03-20] MEDS: APIXABAN 5 MG TABLET PO ×2 (09:24→21:18)
[2025-03-20 12:00] VITALS: BP 127/42; PULSE 81; RESP 18; TEMP 35.7; O2SAT 93
--- NOTE | 2025-03-20 12:50 | SLP.IPNOTE ---
Addendum entered and electronically signed by Alex Cai 03/20/25 14:43: Evaluation attempted again at approximately 14:35. Pt asleep and difficult to arouse. RN reported pt has been lethargic today and has been sleeping most of the day. STORE CLERK CASHIER to re-attempt tomorrow. Original Note: Chart reviewed and RN consulted. Evaluation attempted, though pt receiving assistance with toileting at time of attempt around 11:20. STORE CLERK CASHIER to attempt later in day as schedule allows.
--- NOTE | 2025-03-20 16:05 | CM.DPNOTE ---
DCP note DIRECTOR OF BUSINESS DEVELOPMENT reviewed EMR per provider, stable in next day or so to return to SNF. DIRECTOR OF BUSINESS DEVELOPMENT met with pt in room. reviewed plan. refusing to return to [facility]. asked this DIRECTOR OF BUSINESS DEVELOPMENT to connect with dtr Ansley DIRECTOR OF BUSINESS DEVELOPMENT spoke with dtr Ansley ([phone]). adamant pt will not return to [facility]. asked for SNF at [facility] or to take pt home. pt a brent. they do not have necessary equipment at home. unsure how safe a plan home is. DIRECTOR OF BUSINESS DEVELOPMENT agreed to try for [facility]. DIRECTOR OF BUSINESS DEVELOPMENT updated Stella at . canceled auth request. DIRECTOR OF BUSINESS DEVELOPMENT sent referral to [facility]. Tatiana to review, will start auth if can accept. PASRR completed. P: dc to [facility] vs home with family. continue to follow closely for DCP Coordination WAN [place]
[2025-03-20 17:19] VITALS: BP 125/46; PULSE 82; RESP 15; TEMP 35.8; O2SAT 99
[2025-03-20 20:18] VITALS: BP 116/43; PULSE 73; RESP 15; TEMP 36.1; O2SAT 97
[2025-03-20] MEDS: GABAPENTIN 300 MG CAPSULE PO (21:18)
[2025-03-20] MEDS: ATORVASTATIN 20 MG TABLET PO (21:18)
[2025-03-21] VITALS (8 sets, daily range): BP systolic 112–153; BP diastolic 41–84; PULSE 76–98; RESP 12–20; TEMP 36–36.6; O2SAT 92–99
[2025-03-21 08:06] LABS: Hematocrit 27.2 % (36-46); Hemoglobin 8.8 g/dL (12.0-16.0); Mean Corpuscular HGB Conc 32.4 % (30-36); Mean Corpuscular Hemoglobin 28.9 PG (26-34); Mean Corpuscular Volume 89.2 fL (80-100); Platelet Count 121 X10^3/uL (150-400)
[2025-03-21 08:26] LABS: Blood Urea Nitrogen 61 mg/dL (7-17); Calcium 10.7 mg/dL (8.4-10.2); Chloride 95 mmol/L (98-107); Estimated Glomerular Filt Rate 40 mL/min (>60); Glucose 124 mg/dL (70-99); HEMOLYSIS 18 (0-50); Magnesium 1.7 mg/dL (1.6-2.3); Potassium 4.8 mmol/L (3.4-5.1); Sodium 136 mmol/L (137-145)
[2025-03-21 08:44] LABS: Carbon Dioxide 38 mmol/L (22-32)
[2025-03-21] MEDS: APIXABAN 5 MG TABLET PO ×2 (09:37→21:00)
[2025-03-21] MEDS: FUROSEMIDE 40 MG TABLET PO (09:37)
[2025-03-21] MEDS: GABAPENTIN 100 MG CAPSULE PO (09:38)
[2025-03-21] MEDS: SODIUM CHLORIDE 0.9% FLUSH 10 ML IV ×2 (09:39→21:05)
--- NOTE | 2025-03-21 11:15 | PC.NURSE ---
Oxygen: RA trial: Pt on O2 at 2L NC, sats are 99%. Off O2 and sats down to 77% RA. Oxygen replaced at 1L NC, in minutes pt was up to 94% on 1L.
--- NOTE | 2025-03-21 11:58 | PM.PN.1 ---
Subjective Subjective Interval history: S: She was very weak, and it was a Yaw lift to be repositioned out of bed. She does not want to return to her previous long-term facility. Go however she she was told that this is likely not really feasible with her inability to stand or pivot. It would require a Yaw lift at the house and a lot of physical support as well. Her renal function is stable to improving. She still has volume overload. She was a stage II coccyx wound with a pad in place. She also has yeast in the folds of her pannus which is being treated with powder. O: She is interactive, lying in bed. She was somewhat lethargic. She was alert and oriented. Speech is normal. Lungs are clear with normal effort. Heart is regular, without murmur. Abdomen is distended, and soft. Extremities with edema bilaterally. Slightly improved from admission. A/P: 1. Transient somnolence, resolved. 2. ALFREDO with hyperkalemia, improved. 3. Volume overload, active and improving. 4. Demand ischemia. Improved. 5. Chronic diastolic heart failure, active. 6. Diabetes, stable. 7. Morbid obesity, active. 8. Episode of rectal blood on March 20, history of hemorrhoids. Improved. 9. Stage 2 Coccyx skin injury. 10. Groin [place]. PLAN: -Convert to PO Lasix. -monitor potassium -Monitor for rectal bleeding. -monitor hemoglobin. -She is being reviewed for [facility]. -Monitor renal function. DC plan: SNF @ [facility] if able. Near family. Exam Vital Signs (past 8 hours): - 03/21/25 04:00 03/21/25 05:04 03/21/25 08:00 Temperature 97.1 F L 98 F Pulse Rate 82 83 Respiratory Rate 15 18 Blood Pressure 127/41 L 112/84 Pulse Oximetry 99 98 97 Oxygen Delivery Method Nasal Cannula Oxygen Flow Rate 2 Fraction of Inspired Oxygen 28 Fraction of Inspired Oxygen 28 SaO2/FiO2 Ratio 350 Oxygen Delivery Method Nasal Cannula Oxygen Flow Rate 2 Objective Labs 03/21/25 08:00 03/21/25 07:44 Labs: Laboratory Results - last 24 hr 03/20/25 03/20/25 03/20/25 12:04 17:20 19:42 WBC RBC Hgb Hct MCV MCH MCHC RDW Plt Count Sodium Potassium Chloride Carbon Dioxide BUN Creatinine Estimated GFR BUN/Creatinine Ratio Glucose POC Whole Bld Glucose 153 H 136 H 171 H Calcium Magnesium 03/21/25 03/21/25 03/21/25 07:44 08:00 08:12 WBC 6.0 RBC 3.05 L Hgb 8.8 L Hct 27.2 L MCV 89.2 MCH 28.9 MCHC 32.4 RDW 17.3 H Plt Count 121 L Sodium 136 L Potassium 4.8 Chloride 95 L Carbon Dioxide 38 H BUN 61 H Creatinine 1.37 H Estimated GFR 40 L BUN/Creatinine Ratio 44.5 H Glucose 124 H POC Whole Bld Glucose 128 H Calcium 10.7 H Magnesium 1.7 PFSH Social History household members: family Smoking Status: Never smoker alcohol intake: never Assessment & Plan Time-Based Coding :: [TOTAL MINUTES] spent with patient and on the chart (including review of chart, obtaining history, exam, reviewing outside data, placing orders, documenting exam and treatment plan, and counseling patient) on [DATE]. Quality VTE Deep Vein Thrombosis/Pulmonary Embolism Present on Admission: No
[2025-03-21] MEDS: INSULIN LISPRO 100 UNIT/ML 3ML VIAL SUBCUT ×3 (14:02→21:05)
[2025-03-21] MEDS: NYSTATIN POWDER 15GM 1 APPLIC TOP (14:04)
--- NOTE | 2025-03-21 14:45 | PT.IPTN ---
Current Diagnoses Heart failure, unspecified (03/17/25) Disorder of kidney and ureter, unspecified (03/17/25) Other specified abnormal findings of blood chemistry (03/17/25) Physical Therapy Treatment Note M2 PT-IP Current Condition Start: 03/18/25 14:54 Freq: NEEDED Status: Active Protocol: Document 03/19/25 12:02 AMH (Rec: 03/19/25 12:10 AMH [id number]) Physical Therapy Current Condition Current Condition Evaluation Date 03/18/25 Treatment Diagnosis CHF; difficulty in walking Onset Date 03/17/25 M3 PT-IP Subjective Start: 03/18/25 14:54 Freq: NEEDED Status: Active Protocol: Document 03/21/25 14:45 AB (Rec: 03/21/25 16:58 AB [id number]) Subjective Physical Therapy Visit Type Type Treatment Note Visit Start Time 14:45 Visit Stop Time 15:10 Number of C4 PLANNER Visits 0 Physical Therapy Visit Comments Patient Comments agreeable to do PT M4 PT-IP Mobility and Gait Start: 03/18/25 14:54 Freq: NEEDED Status: Active Protocol: Document 03/21/25 14:45 AB (Rec: 03/21/25 16:58 AB [id number]) PT-Bed Mobility Assessment Supine to Sit Supine to Sit Maximum Assistance,2 Person Assistance,Head of Bed Elevated,Bedrails Scooting Scooting to Edge of Maximum Assistance Bed PT-Transfer Assessment Sit to and From Stand Sit to and from Maximum Assistance,2 Person Assistance,Use of Upper Stand Extremities Equipment Transfer Assistive Gait Belt,Front Wheeled Walker Device Orthotic/Prosthetic No Devices or Brace: Transfers Transfer Destination Bedside Commode Transfer Technique Stand Step Pivot Transfer Ability Level of Assist Maximum Assistance,2 Person Assistance,Use of Upper Extremities Comments Mobility Comments pt in bed and agreeable to do PT. pt stated that she feels like she has to do a BM. agreed to transfer to bedside commode. supine to sit max A x 2 and max cues. needing several attempts to sit up. increase posterior LOB. max Ax 2 for scooting to EOB. sit to stand max A x 2 and max cues. step transfer to bedside commode using FWW max A x 2 and max cues. pt needing increase time to complete all tasks. pt wants to sit up on commode for a few minutes. call light next to pt. nursing staff to assist pt when ready. M5 PT-IP Objective Assessments Start: 03/18/25 14:54 Freq: NEEDED Status: Active Protocol: Document 03/19/25 12:02 AMH (Rec: 03/19/25 12:10 AMH [id number]) Orientation Orientation/Cognition Level of Alertness Alert Orientation Name,Birthday,Place Language Function Hard of Hearing Ability Safety Awareness Decreased Safety Awareness Memory Description Short Term Impaired,Hospitalist Nocturnist Physician Impaired M6 PT-IP Treatment Start: 03/18/25 14:54 Freq: NEEDED Status: Active Protocol: Document 03/21/25 14:45 AB (Rec: 03/21/25 16:58 AB [id number]) Physical Therapy Treatment Education Education Provided Safety M7 PT-IP Assessment and Plan Start: 03/18/25 14:54 Freq: NEEDED Status: Active Protocol: Document 03/21/25 14:45 AB (Rec: 03/21/25 16:58 AB [id number]) PT Summary Assessment and Plan Potential Rehabilitation Fair Potential Summary Impairments Pain,ROM,Strength,Balance,Coordination,Sensation,Tone, Cognition,Bed Mobility,Transfers,Gait,Activity Tolerance Progress Towards Slow Progress due to Medical Issues,Slow Progress due Goals to Activity Tolerance Assessment Summary pt requiring max A x 2 with mobilities using FWW and continues to present with decrease activity tolerance affecting mobility. pt will require SNF rehab to improve strength and independence. Goals Bed Mobility Goal Minimal Assistance Transfer Goal Minimal Assistance,Front Wheeled Walker Gait Goal Minimal Assistance,Front Wheel Walker Gait Distance 25 Other Goals improve bed mobility, transfers, ambulation using FWW ~ 100 ft SBA up/down 16 steps B rails SBA Days to Meet Goals 10 Frequency of Treatment Frequency Of Once a Day Treatment Treatment Plan Physical Therapy Bed Mobility Training,Transfer Training,Gait Training, Treatment Plan Therapeutic Exercise,Balance Retraining,Discharge Planning,Hot or Cold Pack,Neuromuscular Re-ed, Coordination Retraining Recommendations To Nursing Amount of Assist Mechanical Lift Needed Discharge Recommendations PT Discharge SNF Rehab Recommendations Transportation Needs Wheelchair/Cabulance at Discharge - PT assist 2
--- NOTE | 2025-03-21 14:53 | SLP.IPNOTE ---
CREDIT OPERATIONS SPECIALIST attempted to see patient, however patient being seen by physical therapy. CREDIT OPERATIONS SPECIALIST unable to attempt again this date d/t schedule conflicts, however will attempt again tomorrow.
--- NOTE | 2025-03-21 15:58 | CM.DPNOTE ---
DCP Continued: Reviewed EMR and team rounds for pt?s medical status. Per hospitalist, renal function still being monitored but can be discharged to SNF when accepted. VAULT SERVICE MECHANIC spoke with [facility] on [facility]missions ([place]) and it was reported that pt has been administratively accepted pending insurance authorization ([employer]). VAULT SERVICE MECHANIC notified pt daughter, Ansley (ph# [phone]) of pending authorization and she verbalized understanding. Plan: Anticipating discharge to [facility] on [facility] when insurance authorization granted, likely 03/22. Pt to transport via facility van. CM Team will continue to follow for coordination of discharge plans. GLENN YanceySW
--- NOTE | 2025-03-21 18:31 | PC.WOUNDPHOT ---
Wound Photo Photo taken by Huber Lopez RN.
[2025-03-21] MEDS: GABAPENTIN 300 MG CAPSULE PO (21:00)
[2025-03-21] MEDS: ATORVASTATIN 20 MG TABLET PO (21:00)
[2025-03-22 05:05] LABS: Add Manual Diff / Slide Review NO; Hematocrit 28.4 % (36-46); Hemoglobin 9.2 g/dL (12.0-16.0); Lymphocytes Absolute Auto 4100 /uL (1100-4500); Mean Corpuscular HGB Conc 32.2 % (30-36); Mean Corpuscular Hemoglobin 29.0 PG (26-34); Mean Corpuscular Volume 90.0 fL (80-100); Platelet Count 146 X10^3/uL (150-400)
[2025-03-22 05:16] LABS: Blood Urea Nitrogen 55 mg/dL (7-17); Calcium 11.0 mg/dL (8.4-10.2); Chloride 94 mmol/L (98-107); Estimated Glomerular Filt Rate 40 mL/min (>60); Glucose 115 mg/dL (70-99); HEMOLYSIS < 15 (0-50); Potassium 4.9 mmol/L (3.4-5.1); Sodium 136 mmol/L (137-145)
[2025-03-22 05:24] LABS: Carbon Dioxide 39 mmol/L (22-32)
[2025-03-22] MEDS: GABAPENTIN 100 MG CAPSULE PO (09:52)
[2025-03-22] MEDS: APIXABAN 5 MG TABLET PO ×2 (09:53→20:45)
[2025-03-22] MEDS: FUROSEMIDE 40 MG TABLET PO (09:53)
[2025-03-22] MEDS: SODIUM CHLORIDE 0.9% FLUSH 10 ML IV ×2 (09:57→21:00)
--- NOTE | 2025-03-22 10:26 | DIET.CONS ---
Dietary Consultation Note Admission Date: 03/17/2025 11:56 Assessment: 79 y F admitted for AMS and CHF. Dietitian screened for LOS. PMH of DM and presented with stage 2 wound. Average PO intakes recorded 60%. Pt already receiving ONS supplement BID to support PO intakes. All recent BG 180 or less. Ht: 162.56 cm Wt: 111 kg BMI: 42.0 UBW: no wt hx; MNA score 14; presented volume overload per hospitalist progress note is active and improving Last BM: 03/21/25 (03/21/25 15:56) MNA: 14 Ernesto Score: 17 Diet: 03/18/25 Breakfast Carbohydrate Consistent Diet Diet Modifications: Carbohydrate level: Medium (3 CHO) Reflex DM orders: No Food Texture: Level 7 - Regular Liquid Consistency: Level 0 - Thin Nutrition Percent Meal Consumed 65 03/22/25 09:00 Percent Meal Consumed 25% 03/20/25 18:00 Percent Meal Consumed 50% 03/20/25 13:38 Labs: RBC 3.16 X10^6/uL (4.0-5.2) L 03/22/25 04:48 Hgb 9.2 g/dL (12.0-16.0) L 03/22/25 04:48 Hct 28.4 % (36-46) L 03/22/25 04:48 Creatinine 1.37 mg/dL (0.52-1.04) H 03/22/25 04:48 Lactate 1.2 mmol/L (0.7-2.1) 03/16/25 17:48 NT-Pro-B Natriuret Pep 33283 pg/mL (<450) H 03/17/25 09:10 Nutrition Diagnosis: Inadequate oral intakes r/t decreased appeitte aeb <75% of average PO intakes for 5 days Interventions: continue ONS, adjusted to lower protein EER: 55-70 g protein (.8-1g/kg per adjusted IBW per ALFREDO) [id number] kcals (15 kcals per kg per BMI vs MSJx1.25) Monitoring/Evaluations: PO intakes, BG Electronically Signed by: Dayna Dc 03/22/25 10:26 Clinical Dietitian [address] [address]
--- NOTE | 2025-03-22 11:38 | PT.IPTN ---
Current Diagnoses Heart failure, unspecified (03/17/25) Disorder of kidney and ureter, unspecified (03/17/25) Other specified abnormal findings of blood chemistry (03/17/25) Physical Therapy Treatment Note M2 PT-IP Current Condition Start: 03/18/25 14:54 Freq: NEEDED Status: Active Protocol: Document 03/19/25 12:02 AMH (Rec: 03/19/25 12:10 AMH [id number]) Physical Therapy Current Condition Current Condition Evaluation Date 03/18/25 Treatment Diagnosis CHF; difficulty in walking Onset Date 03/17/25 M3 PT-IP Subjective Start: 03/18/25 14:54 Freq: NEEDED Status: Active Protocol: Document 03/22/25 11:38 AB (Rec: 03/22/25 13:09 AB [id number]) Subjective Physical Therapy Visit Type Type Treatment Note Visit Start Time 11:38 Visit Stop Time 12:05 Number of CLOTH EXAMINER HAND Visits 0 Physical Therapy Visit Comments Patient Comments agreed to get up M4 PT-IP Mobility and Gait Start: 03/18/25 14:54 Freq: NEEDED Status: Active Protocol: Document 03/22/25 11:38 AB (Rec: 03/22/25 13:09 AB [id number]) PT-Bed Mobility Assessment Supine to Sit Supine to Sit Maximum Assistance,2 Person Assistance,Head of Bed Elevated,Bedrails Scooting Scooting to Edge of Dependent Bed PT-Transfer Assessment Sit to and From Stand Sit to and from Maximum Assistance,2 Person Assistance,Use of Upper Stand Extremities Equipment Transfer Assistive Gait Belt,Front Wheeled Walker Device Orthotic/Prosthetic No Devices or Brace: Transfers Transfer Destination Chair Transfer Technique Stand Step Pivot Transfer Ability Level of Assist Maximum Assistance,2 Person Assistance,Use of Upper Extremities Comments Mobility Comments pt in bed and agreed to get up. supine to sit max A x 2 and max cues. HOB elevated and pt used bed rail to assist. pt with increase retro lean requiring max A for sitting balance on EOB. total A x 2 for scooting to EOB. sit to stand max A x 2 and max cues and step transfer to chair using FWW max A x 2 and max cues. total A for positioning on the chair. pt completed BLE exercises sitting on the chair: LAQx 5 sec hold x 5 reps and seated marching x 5 reps on each LE. call light and table placed within reach. M5 PT-IP Objective Assessments Start: 03/18/25 14:54 Freq: NEEDED Status: Active Protocol: Document 03/19/25 12:02 AMH (Rec: 03/19/25 12:10 AMH [id number]) Orientation Orientation/Cognition Level of Alertness Alert Orientation Name,Birthday,Place Language Function Hard of Hearing Ability Safety Awareness Decreased Safety Awareness Memory Description Short Term Impaired,Senior Living Impaired M6 PT-IP Treatment Start: 03/18/25 14:54 Freq: NEEDED Status: Active Protocol: Document 03/22/25 11:38 AB (Rec: 03/22/25 13:09 AB [id number]) Physical Therapy Treatment Education Education Provided Safety Other Treatments Other Treatment LAQs BLE , seated marching Performed M7 PT-IP Assessment and Plan Start: 03/18/25 14:54 Freq: NEEDED Status: Active Protocol: Document 03/22/25 11:38 AB (Rec: 03/22/25 13:09 AB [id number]) PT Summary Assessment and Plan Potential Rehabilitation Fair Potential Summary Impairments Pain,ROM,Strength,Balance,Coordination,Sensation,Tone, Cognition,Bed Mobility,Transfers,Gait,Activity Tolerance Progress Towards Slow Progress due to Activity Tolerance,Slow Progress - Goals Other Assessment Summary pt continues to require max A x 2 for mobilities and has decrease activity tolerance affecting participation and mobility. pt will require SNF rehab to improve strength and function. Goals Bed Mobility Goal Minimal Assistance Transfer Goal Minimal Assistance,Front Wheeled Walker Gait Goal Minimal Assistance,Front Wheel Walker Gait Distance 25 Other Goals improve bed mobility, transfers, ambulation using FWW ~ 100 ft SBA up/down 16 steps B rails SBA Days to Meet Goals 10 Frequency of Treatment Frequency Of Once a Day Treatment Treatment Plan Physical Therapy Bed Mobility Training,Transfer Training,Gait Training, Treatment Plan Therapeutic Exercise,Balance Retraining,Discharge Planning,Hot or Cold Pack,Neuromuscular Re-ed, Coordination Retraining Recommendations To Nursing Amount of Assist Mechanical Lift Needed Discharge Recommendations PT Discharge SNF Rehab Recommendations Transportation Needs Wheelchair/Cabulance at Discharge - PT assist 2
[2025-03-22] MEDS: INSULIN LISPRO 100 UNIT/ML 3ML VIAL SUBCUT ×2 (12:10→17:11)
[2025-03-22 12:20] VITALS: BP 144/43; PULSE 85; RESP 14; TEMP 35.8; O2SAT 97
--- NOTE | 2025-03-22 13:19 | CM.DPC ---
DCP Note HEEL TRIMMER reviewed EMR per provider, cleared to dc to SNF. per Tatiana at [facility], bed and auth still pending. P: dc to [facility] via facility van when auth/bed secured, update family as needed. Will continue to follow closely for DCP Coordination WAN [place]
--- NOTE | 2025-03-22 14:05 | P.PN_ITS ---
Subjective Subjective Date Patient Seen: 03/22/25 Interval history: S: She continues to be quite weak. She does not want to return to her home with her daughter. Per PT this is likely not really feasible with her inability to stand or pivot. It would require a Yaw lift at the house and a lot of physical support as well. Her renal function is stable to improving. She still has volume overload. The platelets are rising towards normal, currently 146. The hemoglobin is 9.2, up from 8.8. The creatinine is stable at 1.37. She was a stage II coccyx wound with a pad in place. She also has yeast in the folds of her pannus which is being treated with powder. O: She is interactive, lying in bed. She was somewhat lethargic. She was alert and oriented. Speech is normal. Lungs are clear with normal effort. Heart is regular, without murmur. Abdomen is distended, and soft. Extremities with 2+edema bilaterally. Slightly improved from admission. A/P: 1. Transient somnolence, resolved. 2. ALFREDO with hyperkalemia, improved. 3. Volume overload, active and improving. 4. Demand ischemia. Improved. 5. Chronic diastolic heart failure, active. 6. Diabetes, stable. 7. Morbid obesity, active. 8. Episode of rectal blood on March 20, history of hemorrhoids. Improved. 9. Stage 2 Coccyx skin injury. 10. Groin [place]. 11. Anemia PLAN: -PO Lasix. -monitor potassium -Monitor for rectal bleeding. -monitor hemoglobin. -She is being reviewed for [facility]. -Monitor renal function. DC plan: [facility] @ [facility] 03/23 pending insurance approval. Near family. Exam Vital Signs (past 8 hours): - 03/22/25 08:15 03/22/25 12:20 Temperature 96.5 F L Pulse Rate 85 Respiratory Rate 14 Blood Pressure 144/43 H Pulse Oximetry 97 Oxygen Delivery Method Nasal Cannula Fraction of Inspired Oxygen 28 SaO2/FiO2 Ratio 350 Oxygen Delivery Method Nasal Cannula Oxygen Flow Rate 2 Objective Labs 03/22/25 04:48 03/22/25 04:48 Labs: Laboratory Results - last 24 hr 03/21/25 03/21/25 03/22/25 17:29 21:48 03:06 WBC RBC Hgb Hct MCV MCH MCHC RDW Plt Count Neut % (Auto) Lymph % (Auto) [place] % (Auto) Eos % (Auto) Baso % (Auto) Neut # (Auto) Lymph # (Auto) [place] # (Auto) Eos # (Auto) Baso # (Auto) Sodium Potassium Chloride Carbon Dioxide BUN Creatinine Estimated GFR BUN/Creatinine Ratio Glucose POC Whole Bld Glucose 142 H 180 H 90 Calcium 03/22/25 03/22/25 03/22/25 04:48 08:14 12:05 WBC 8.1 RBC 3.16 L Hgb 9.2 L Hct 28.4 L MCV 90.0 MCH 29.0 MCHC 32.2 RDW 17.6 H Plt Count 146 L Neut % (Auto) 38.3 L Lymph % (Auto) 51.2 H [place] % (Auto) 8.4 Eos % (Auto) 1.5 L Baso % (Auto) 0.6 Neut # (Auto) 3100 Lymph # (Auto) 4100 [place] # (Auto) 700 Eos # (Auto) 100 Baso # (Auto) 100 Sodium 136 L Potassium 4.9 Chloride 94 L Carbon Dioxide 39 H BUN 55 H Creatinine 1.37 H Estimated GFR 40 L BUN/Creatinine Ratio 40.1 H Glucose 115 H POC Whole Bld Glucose 125 H 143 H Calcium 11.0 H PFSH Social History household members: family Smoking Status: Never smoker alcohol intake: never Assessment & Plan Time-Based Coding :: [TOTAL MINUTES] spent with patient and on the chart (including review of chart, obtaining history, exam, reviewing outside data, placing orders, documenting exam and treatment plan, and counseling patient) on [DATE]. Quality VTE Deep Vein Thrombosis/Pulmonary Embolism Present on Admission: No
--- NOTE | 2025-03-22 14:24 | ST.IPIE ---
Visit Care Team Role Provider Type HAIDER Ellis Primary Care Provider Non-Staff Specialty: Family Practice Address: [address], [address], [place], [address] Email: Taqueria Merino MD Emergency Provider Physician Referring Provider Specialty: Emergency Medicine Address: [address], [place], [address] Fax: Email: [email or web address] Andrey Puri MD Admit Provider Physician Attending Provider Specialty: Internal Medicine Address: [address] [place] [address], [id number] Email: [email or web address] Current Diagnoses Heart failure, unspecified (03/17/25) Disorder of kidney and ureter, unspecified (03/17/25) Other specified abnormal findings of blood chemistry (03/17/25) ST IP Initial Evaluation Report SUPERVISING CHEF Adult Cognitive Linguistic Eval Start: 03/22/25 14:01 Freq: Status: Active Protocol: Document 03/22/25 14:02 SS (Rec: 03/22/25 14:24 SS [email or web address]) Adult Cognitive Linguistic Evaluation Session Time Visit Start Time 13:30 Visit Stop Time 13:55 Total Visit Minutes 25 Visit Information Visit Number [address] Shaunna Martinez MD Reason for Referral Assess and treat cognition and swallowing Setting Assessment Location Acute Care Visit Type Note Type Initial evaluation Next Note Type Next Note Type Treatment Note Patient Information Identification Type Name,Date of Patient History Per H&P: She was discharged from [facility] to [facility] yesterday. This morning she was bradycardic and somnolent and sent to the ER. There she woke relatively easily but was noted to have a mildly elevated troponin as well as ALFREDO and volume overload. She was treated for diastolic heart failure and possible NSTEMI while at [facility]. In addition she did have a degree of ALFREDO. She denies any chest pain or overt dyspnea. She does have edema of both legs. She denies any abdominal pain, or nausea. She does not feel confused or somnolent. She was accompanied by her son, he feels that she nearing her baseline. Patient was admitted for new onset heart failure and treated with diuresis. She was started on GDM T, but there are limitations due to soft blood pressures. Her admission was complicated by ALFREDO and metabolic encephalopathy. There is a question of urinary tract infection. In addition, she was in PAF and started on anticoagulation. The patient [facility]. Her chest x-ray revealed a small right pleural effusion [place]NP [place] [address] initially. Echo revealed EF which was normal with grade 2 diastolic dysfunction. She was chronic kidney disease stage 3 with a suspected baseline creatinine of 1.21.4. She did initially have hypoxic and hypercapnic respiratory failure as well. He was mentioned him and ESBL urinary tract infection. She was treated with ertapenem from March 07 through March 09 with described completed course of therapy. SUPERVISING CHEF consulted for cognitive assessment to inform POC and discharge planning. Education Level BA in Education Occupation Status Retired teacher Hearing Hearing Level Normal Vision Vision Status Not Impaired Previous Therapy Previous Speech- No Language Therapy Subjective Patient Report Pt was awake upon SUPERVISING CHEF arrival, though intermittently falling asleep, requiring redirection to conversation. Her son was at bedside who reported pt has been more awake and alert today. However, she is not near her baseline cognitively. Pt reported baseline difficulties with memory and word-finding, though feels these have been exacerbated with recent hospitalizations. She expressed difficulty with orientation, problem-solving during functional tasks (i.e., use of call button to ask for assistance), and short-term memory. Pt denied difficulty with swallowing, which was consistent with SUPERVISING CHEF observations as pt ate portion of her lunch and drank water during the assessment. At baseline, pt lived with her adult children who assisted her with driving, paying bills, and household management. However, pt was independent with medication management and had minimal difficulty with word-finding in conversation. Mental Status Alert,Responsive,Cooperative Informal Assessment Receptive Language Yes Normal Expressive Language Yes Normal Pragmatic Language Yes Normal Speech Normal Yes Cognition Normal No Cognitive Impairment Orientation,Attention,Short-term memory,Executive (s) functioning,Problem solving Formal Assessment Standardized Test/ [facility] Mental Status (UMS) Screener Type Administration Complete Results The [facility] Mental Status (UMS) Examination was used to obtain information regarding the patient?s cognitive abilities. The SLUMS consists of ten questions that assess delayed recall, verbal fluency, comprehension, calculations, attention, working memory, and orientation. A scored is calculated from a possible 30 points. Scores fall in one of three ranges describing a patient?s level of impairment based upon level of education. Patients who have completed high school are expected to score slightly higher on this test than those who have not. For someone with a high school education, WNL is 27-30. The SLUMS was completed on this date. Subtest scores are as follows: Orientation: 3/3 Immediate Recall: 3/5 (not calculated in total score) Numeric Calculation: 1/3 Divergent Namin/3 (total of 11) Delayed Recall: 2/5 Attention/Registration with Digit Span: 1/2 Clock Drawing (Visuospatial & Executive Functionin/ 4 Geometric Figures: 2/2 Short Story (memory/recall): 4/8 With at least a high school education, a total score of 15/30 falls within the dementia range which is indicative of at least a moderate cognitive- communication impairment. Findings/Results Language Function Mildly impaired Cognitive Function Moderately impaired Findings Given SUPERVISING CHEF observations and SLUMS results, pt demonstrated a moderate cognitive-communication impairment. Pt is at elevated risk of making critical errors with tasks such as medication management, financial dealers, and completion of complaint supervisor, as well as everyday tasks that require adequate skills in the areas of attention, immediate and delayed memory, and executive functioning. Word-finding difficulty in conversation has impacted her communication with family and medical providers and has resulted in frequent frustration. Recommend 1:[address] with the goal of providing therapeutic education and training in use of cognitive- communication compensatory strategies, specifically targeting attention, immediate and delayed memory, executive functioning, and word-finding for improved safety and independence in the home. Concomitant Factors Concomitant Factors Other (comment) Comment Significant fatigue Prognosis Prognosis Good Based on Family support Plan of Care Speech-Language Yes Treatment Frequency Daily Duration During hospital admission Patient/Caregiver Described results of evaluation,Patient expressed Education understanding of evaluation,Patient expressed agreement with goals and treatment plans Short Term Goals 1. Patient will implement functional strategies (e.g., use of pill organizer, written schedule, phone reminders) to support medication management with minimal verbal cues in 80% of opportunities. 2. Patient will utilize compensatory memory aids with 90% accuracy given verbal and visual cues to increase orientation and functional recall/participation within current setting. Director Of Home Care Hospice Goals 1. Patient will exhibit adequate cognitive- communication skills for discharge home with intermittent daily supervision using compensatory strategies as trained to facilitate safety and independence. Discharge shelter facility Recommendations
[2025-03-22 19:39] VITALS: BP 145/61; PULSE 83; RESP 18; TEMP 36.1; O2SAT 98
[2025-03-22] MEDS: GABAPENTIN 300 MG CAPSULE PO (20:45)
[2025-03-22] MEDS: ATORVASTATIN 20 MG TABLET PO (20:45)
[2025-03-22 23:00] VITALS: BP 160/63; PULSE 84; RESP 16; TEMP 36.1; O2SAT 97
[2025-03-23 03:00] VITALS: BP 152/61; PULSE 84; TEMP 36; O2SAT 99
[2025-03-23 04:41] LABS: Add Manual Diff / Slide Review NO; Hematocrit 27.5 % (36-46); Hemoglobin 9.0 g/dL (12.0-16.0); Lymphocytes Absolute Auto 3600 /uL (1100-4500); Mean Corpuscular HGB Conc 32.7 % (30-36); Mean Corpuscular Hemoglobin 29.6 PG (26-34); Mean Corpuscular Volume 90.3 fL (80-100); Platelet Count 117 X10^3/uL (150-400)
[2025-03-23 05:01] LABS: Alanine Aminotransferase 14 IU/L (<35); Albumin 2.8 g/dL (3.5-5.0); Albumin Globulin Ratio 1.0 (1.0-2.8); Alkaline Phosphatase 37 U/L (38-126); Blood Urea Nitrogen 57 mg/dL (7-17); Calcium 10.6 mg/dL (8.4-10.2); Chloride 94 mmol/L (98-107); Estimated Glomerular Filt Rate 46 mL/min (>60); Globulin 2.7 g/dL (1.7-4.1); Glucose 118 mg/dL (70-99); HEMOLYSIS 47 (0-50); Potassium 5.1 mmol/L (3.4-5.1); Sodium 135 mmol/L (137-145); Total Protein 5.5 g/dL (6.3-8.2)
[2025-03-23 05:15] LABS: Carbon Dioxide 38 mmol/L (22-32)
[2025-03-23 08:00] VITALS: BP 144/48; PULSE 86; RESP 18; TEMP 35.9; O2SAT 98
[2025-03-23] MEDS: SODIUM CHLORIDE 0.9% FLUSH 10 ML IV (09:10)
[2025-03-23] MEDS: FUROSEMIDE 40 MG TABLET PO (09:13)
[2025-03-23] MEDS: GABAPENTIN 100 MG CAPSULE PO (09:13)
[2025-03-23] MEDS: APIXABAN 5 MG TABLET PO ×2 (09:13→21:07)
--- NOTE | 2025-03-23 09:40 | OT.IP.EVAL ---
Current Diagnoses Heart failure, unspecified (03/17/25) Disorder of kidney and ureter, unspecified (03/17/25) Other specified abnormal findings of blood chemistry (03/17/25) Occupational Therapy Inpatient Evaluation/Re-Eval M1 PT/OT-IP Prior Functional Status Start: 03/18/25 14:54 Freq: NEEDED Status: Active Protocol: Document 03/23/25 10:15 [facility] (Rec: 03/23/25 10:32 [facility] Desktop) Medical Review Prior Functional Status Medical History Yes Reviewed Communication able to make needs known; slow to response Mobility and Gait pt stated that prior to last hospitalization, she was modified independent with all mobilities and ambulation using 2 walking sticks Activities of Daily Pt states was MOD I with all ADL needs. Pt's daughter Living and IADL's now taking over for medications and bills and already assist with IADL needs. Social History Household Members family Living Arrangements House Number of Stairs To Pt lives on a split level house. NO steps to enter her Enter/Railing? bedroom but has 16 steps B rails to go up to the dining room/kitchen area. Home Environment High Toilet,Walk in Shower,Built-In Shower Seat Home Equipment Front Wheel Walker,Hand Held Shower,Grab Bars Near Toilet,Grab Bars In Shower Additional Social Pt lives with her daughter and her family. Pt admitted History Comment from [facility]. M2 OT-IP Current Condition Start: 03/23/25 10:15 Freq: Status: Active Protocol: Document 03/23/25 10:15 [facility] (Rec: 03/23/25 10:32 [facility] Desktop) Occupational Therapy Current Condition Current Condition Evaluation Date 03/23/25 Treatment Diagnosis CHF, generalized weakness Diagnosis Onset Date 03/17/25 M3 OT- IP Subjective and Pain Start: 03/23/25 10:15 Freq: Status: Active Protocol: Document 03/23/25 10:15 [facility] (Rec: 03/23/25 10:32 [facility] Desktop) OT- Subjective Occupational Therapy Visit Type Type Initial Evaluation Visit Start Time 09:10 Visit Stop Time 09:43 Occupational Therapy Visit Comments Patient Comments Pt agreed to get up. Patient/Caregiver TO get better. Goals OT Pain Assessment Pain When Pain Assessed During Mobility Pain Present Pain Present Pain Reported Location Left Leg Pain Behaviors Facial Grimacing,Holding Area M4 OT- IP ADL's Start: 03/23/25 10:15 Freq: Status: Active Protocol: Document 03/23/25 10:15 [facility] (Rec: 03/23/25 10:32 [facility] Desktop) OT [id number] Comments OT Self-Feeding Not at meal time. Comments OT ADL-Grooming General Evaluation Grooming Ability Standby Assistance Comments OT Grooming Comments Set-up and able to do while CGA to close SBA from the edge of the bed. Pt heavily leans on the table and pillow behind her for support. OT ADL-Oral Care General Eval Oral Care Ability Standby Assistance Comments Oral Care Comments Set-up. OT ADL-Dressing General Eval Lower Body Dressing Maximum Assistance Ability Areas Needing Socks Assistance OT ADL-Toileting General Evaluation Toileting Ability Total Assistance Comments OT Toileting Munoz Comments OT ADL-Bathing Comments OT Bathing Comments Sponge bath versus use of rolling shower chair more appropriate at this time. M5 OT- IP IADL's Start: 03/23/25 10:15 Freq: Status: Active Protocol: Document 03/23/25 10:15 [facility] (Rec: 03/23/25 10:32 [facility] Desktop) OT-Instrumental Activities of Daily Living Medication Management Medication Caregiver Administers Management Money Management Money Management Caregiver Provides Assistance Meal Preparation Meal Preparation Caregiver Provides Assist Accounting Clerk Accounting Clerk Caregiver Provides Assist M6 OT- IP Functional Cognition Start: 03/23/25 10:15 Freq: Status: Active Protocol: Document 03/23/25 10:15 [facility] (Rec: 03/23/25 10:32 [facility] Desktop) Cognitive Factors Limiting Selfcare Function Cognitive Ability Level of Alertness Alert Patient Orientation Name,Place,Situation Attention Span Capable of Focused Attention,Capable of Sustained Ability Attention Ability to Follow Able to Follow One Step Commands Commands Memory Description Short Term Impaired Cognitive Tests SLUMS Per [employer] eval yesterday, pt scored 15/30 which implies dementia. Cognitive Comments Cognitive Assessment Pt needing encouragement and increased time and able to Comments follow ADL and mobility needs. OT- Vision and Hearing OT- Hearing Assessment OT- Hearing WFL Assessment OT- Vision Assessment Visual Acuity Glasses For Reading Visual Attentiveness WFL Occular Pursuits WFL M7 OT- IP Mobility and Balance Start: 03/23/25 10:15 Freq: Status: Active Protocol: Document 03/23/25 10:15 [facility] (Rec: 03/23/25 10:32 [facility] Desktop) OT- Bed Mobility Assessment Supine to Sit Supine to Sit Assist Maximum Assistance,1 Person Assistance,Head of Bed Elevated,Bedrails Scooting Scooting to Edge of Maximum Assistance,1 Person Assistance Bed OT-Transfer Assessment Sit to and From Stand Sit to and from Maximum Assistance,2 Person Assistance Stand Transfers Transfer Ability Maximum Assistance,2 Person Assistance Technique Transfer Destination Bed,Chair Transfer Technique Stand Step Pivot Devices Transfer Assistive Gait Belt,Front Wheeled Walker Devices Comments Mobility Comments Assist to help unweight her legs so pt able to assist to move her legs to the edge of the bed. MAX AX 1 to assist to get her trunk upright. MAX AX 2 to stand to the FWW and transfer with assist for balance and to help guide the FWW. Extensive assist to help pt lower to the recliner. OT- Balance Assessment Sitting Balance and Reactions Static Sitting Poor Balance Ability Dynamic Sitting Poor Balance Ability Standing Balance and Reactions Static Standing Poor Balance Ability Dynamic Standing Poor Balance Ability M8 OT- IP Objective Assessments Start: 03/23/25 10:15 Freq: Status: Active Protocol: Document 03/23/25 10:15 [facility] (Rec: 03/23/25 10:32 [facility] Desktop) OT Gross Range of Motion Upper Extremity Range of Motion Assessment Bilaterally Impaired OT Strength Comments Strength Comments RUE 3+/5 to 4/5 to 4+/5 LUE 3-/5 to 4-/5 to 4+/5 ( shoulder, elbow, hand) M9 OT- IP Assessment and Plan Start: 03/23/25 10:15 Freq: Status: Active Protocol: Document 03/23/25 10:15 [facility] (Rec: 03/23/25 10:32 [facility] Desktop) OT Summary Assessment and Plan Potential Rehabilitation Good Potential Analytic Complexity Moderate at Evaluation Summary OT Impairments Pain,Range of Motion,Strength,Balance,Functional Cognition,Functional Mobility,Self-Feeding,Grooming, Dressing,Toileting,Bathing,Toilet Transfers,Shower Transfers,Activity Tolerance Progress Towards Progressing Toward Goals Goals Assessment Summary Pt MOD complexity and main barriers are steps, weakness and decreased activity tolerance and now needing two person assist for ADL and mobility needs. Pt is cooperative and motivated to get better and will benefit from skilled rehab. Goals Self-Feeding Goal Independent Grooming Goal Independent Dressing Goal Minimal Assistance Toileting Goal Minimal Assistance Bathing Goal Minimal Assistance Toilet Transfer Goal Standby Assistance Shower Transfer Goal Contact Guard Assistance Days to Meet Goals 25 Frequency of Treatment Other frequency 5x/week Treatment Plan OT Treatment Plan ADL Training,Functional Cognition Training,Functional Mobility,Patient/Family Education,Discharge Planning Other Treatment Transfer with FWW to [facility] with MODA X2. Recommendations and Next Treatment Focus Discharge Recommendations OT Discharge SNF Rehab Recommendations Transportation Needs Wheelchair/Cabulance at Discharge
--- NOTE | 2025-03-23 10:33 | P.PN_ITS ---
Subjective Subjective Date Patient Seen: 03/23/25 Interval history: S: She continues to be quite weak. She does not want to return to her home with her daughter. Per PT this is likely not really feasible with her inability to stand or pivot. It would require a Yaw lift at the house and a lot of physical support as well. Her renal function is stable to improving. She still has volume overload. The platelets have dropped again, currently 117. The hemoglobin is 9.0, up from 8.8. The creatinine is down to 1.21. She was a stage II coccyx wound with a pad in place. She also has yeast in the folds of her pannus which is being treated with powder. O: She is interactive, lying in bed. She was somewhat lethargic. She is oriented. Speech is slowed but appropriate. Lungs are clear with normal effort. Heart is regular, without murmur. Abdomen is distended, not tender and soft. Extremities with 2+edema bilaterally. Slightly improved from admission. A/P: 1. Transient somnolence, resolved. 2. ALFREDO with hyperkalemia, improved. 3. Volume overload, active and improving. 4. Demand ischemia. Improved. 5. Chronic diastolic heart failure, active. 6. Diabetes, stable. 7. Morbid obesity, active. 8. Episode of rectal blood on March 20, history of hemorrhoids. Improved. 9. Stage 2 Coccyx skin injury. 10. Groin [place]. 11. Anemia 12. Generalized Weakness PLAN: -PO Lasix. -monitor potassium -Monitor for rectal bleeding. -monitor hemoglobin. -She is being reviewed for [facility]. -Monitor renal function. DC plan: [facility] 03/24 pending insurance approval. Near family. Exam Vital Signs (past 8 hours): - 03/23/25 03:00 03/23/25 08:00 03/23/25 08:20 Temperature 96.8 F L 96.6 F L Pulse Rate 84 86 Respiratory Rate 18 Blood Pressure 152/61 H 144/48 H Pulse Oximetry 99 98 Oxygen Delivery Method Nasal Cannula Oxygen Flow Rate 0 2 Fraction of Inspired Oxygen 28 SaO2/FiO2 Ratio 350 Oxygen Delivery Method Nasal Cannula Oxygen Flow Rate 2 Objective Labs 03/23/25 04:33 03/23/25 04:33 Labs: Laboratory Results - last 24 hr 03/22/25 03/22/25 03/22/25 12:05 17:07 23:40 WBC RBC Hgb Hct MCV MCH MCHC RDW Plt Count Neut % (Auto) Lymph % (Auto) [place] % (Auto) Eos % (Auto) Baso % (Auto) Neut # (Auto) Lymph # (Auto) [place] # (Auto) Eos # (Auto) Baso # (Auto) Sodium Potassium Chloride Carbon Dioxide BUN Creatinine Estimated GFR BUN/Creatinine Ratio Glucose POC Whole Bld Glucose 143 H 161 H 148 H Calcium Total Bilirubin AST ALT Alkaline Phosphatase Total Protein Albumin Globulin Albumin/Globulin Ratio 03/23/25 03/23/25 04:33 07:54 WBC 6.8 RBC 3.05 L Hgb 9.0 L Hct 27.5 L MCV 90.3 MCH 29.6 MCHC 32.7 RDW 17.4 H Plt Count 117 L Neut % (Auto) 36.8 L Lymph % (Auto) 52.8 H [place] % (Auto) 8.1 Eos % (Auto) 1.7 L Baso % (Auto) 0.6 Neut # (Auto) 2500 Lymph # (Auto) 3600 [place] # (Auto) 600 Eos # (Auto) 100 Baso # (Auto) 0 Sodium 135 L Potassium 5.1 Chloride 94 L Carbon Dioxide 38 H BUN 57 H Creatinine 1.21 H Estimated GFR 46 L BUN/Creatinine Ratio 47.1 H Glucose 118 H POC Whole Bld Glucose 110 H Calcium 10.6 H Total Bilirubin 0.6 AST 25 ALT 14 Alkaline Phosphatase 37 L Total Protein 5.5 L Albumin 2.8 L Globulin 2.7 Albumin/Globulin Ratio 1.0 PFSH Social History household members: family Smoking Status: Never smoker alcohol intake: never Assessment & Plan Time-Based Coding :: [TOTAL MINUTES] spent with patient and on the chart (including review of chart, obtaining history, exam, reviewing outside data, placing orders, documenting exam and treatment plan, and counseling patient) on [DATE]. Quality VTE Deep Vein Thrombosis/Pulmonary Embolism Present on Admission: No
--- NOTE | 2025-03-23 12:17 | CM.DPC ---
DCP SNF Cont: Per , pt stable for d/c to SNF once auth obtained. SW spoke to Tatiana at [facility] and auth still showing as pending. NATALIYA faxed updated OT jacob and prog note towards SNF auth. WAN Santos
--- NOTE | 2025-03-23 13:40 | ST-OP ANOTE ---
Physical, Occupational & Speech Therapy At [facility] Speech Therapy Note Pt triaged due to DECONTAMINATION WORKER schedule. DECONTAMINATION WORKER to follow up as able.
--- NOTE | 2025-03-23 15:21 | PT.IPTN ---
Current Diagnoses Heart failure, unspecified (03/17/25) Disorder of kidney and ureter, unspecified (03/17/25) Other specified abnormal findings of blood chemistry (03/17/25) Physical Therapy Treatment Note M2 PT-IP Current Condition Start: 03/18/25 14:54 Freq: NEEDED Status: Active Protocol: Document 03/19/25 12:02 [facility] (Rec: 03/19/25 12:10 [facility] [id number]) Physical Therapy Current Condition Current Condition Evaluation Date 03/18/25 Treatment Diagnosis CHF; difficulty in walking Onset Date 03/17/25 M3 PT-IP Subjective Start: 03/18/25 14:54 Freq: NEEDED Status: Active Protocol: Document 03/23/25 15:16 [facility] (Rec: 03/23/25 15:20 [facility] [id number]) Subjective Physical Therapy Visit Type Type Treatment Note Visit Start Time 14:45 Visit Stop Time 15:13 Number of INSURANCE COMMISSIONER Visits 0 Physical Therapy Visit Comments Patient Comments Patient reports too fatigued from session with OT earlier today, doesn't feel up to sitting or getting OOB M4 PT-IP Mobility and Gait Start: 03/18/25 14:54 Freq: NEEDED Status: Active Protocol: Document 03/22/25 11:38 [facility] (Rec: 03/22/25 13:09 [facility] [id number]) PT-Bed Mobility Assessment Supine to Sit Supine to Sit Maximum Assistance,2 Person Assistance,Head of Bed Elevated,Bedrails Scooting Scooting to Edge of Dependent Bed PT-Transfer Assessment Sit to and From Stand Sit to and from Maximum Assistance,2 Person Assistance,Use of Upper Stand Extremities Equipment Transfer Assistive Gait Belt,Front Wheeled Walker Device Orthotic/Prosthetic No Devices or Brace: Transfers Transfer Destination Chair Transfer Technique Stand Step Pivot Transfer Ability Level of Assist Maximum Assistance,2 Person Assistance,Use of Upper Extremities Comments Mobility Comments pt in bed and agreed to get up. supine to sit max A x 2 and max cues. HOB elevated and pt used bed rail to assist. pt with increase retro lean requiring max A for sitting balance on EOB. total A x 2 for scooting to EOB. sit to stand max A x 2 and max cues and step transfer to chair using FWW max A x 2 and max cues. total A for positioning on the chair. pt completed BLE exercises sitting on the chair: LAQx 5 sec hold x 5 reps and seated marching x 5 reps on each LE. call light and table placed within reach. M5 PT-IP Objective Assessments Start: 03/18/25 14:54 Freq: NEEDED Status: Active Protocol: Document 03/19/25 12:02 [facility] (Rec: 03/19/25 12:10 [facility] [id number]) Orientation Orientation/Cognition Level of Alertness Alert Orientation Name,Birthday,Place Language Function Hard of Hearing Ability Safety Awareness Decreased Safety Awareness Memory Description Short Term Impaired,Computer Discovery Teacher Impaired M6 PT-IP Treatment Start: 03/18/25 14:54 Freq: NEEDED Status: Active Protocol: Document 03/23/25 15:16 [facility] (Rec: 03/23/25 15:20 [facility] [id number]) Physical Therapy Treatment Exercises Exercises Ankle Pumps,Gluteal Sets,Quad Sets,Heel Slides,Supine Hip Abduction,Short Arc Quads,Shoulder Flexion,Elbow Flexion/Extension,Hand ROM M7 PT-IP Assessment and Plan Start: 03/18/25 14:54 Freq: NEEDED Status: Active Protocol: Document 03/23/25 15:16 [facility] (Rec: 03/23/25 15:20 [facility] [id number]) PT Summary Assessment and Plan Summary Impairments Pain,ROM,Strength,Balance,Coordination,Sensation,Tone, Cognition,Bed Mobility,Transfers,Gait,Activity Tolerance Progress Towards Slow Progress due to Activity Tolerance,Slow Progress - Goals Other Assessment Summary Patient required Max A x 2 with OT this am. Too fatigued to sit at EOB or get OOB this afternoon. Was willing to do bed exercises; mod assist for supine hip abd and heelslide as well as left shoulder flex Goals Bed Mobility Goal Minimal Assistance Transfer Goal Minimal Assistance,Front Wheeled Walker Gait Goal Minimal Assistance,Front Wheel Walker Gait Distance 25 Other Goals improve bed mobility, transfers, ambulation using FWW ~ 100 ft SBA up/down 16 steps B rails SBA Days to Meet Goals 10 Frequency of Treatment Frequency Of Once a Day Treatment Treatment Plan Physical Therapy Bed Mobility Training,Transfer Training,Gait Training, Treatment Plan Therapeutic Exercise,Balance Retraining,Discharge Planning,Hot or Cold Pack,Neuromuscular Re-ed, Coordination Retraining
[2025-03-23 16:00] VITALS: BP 134/50; PULSE 94; RESP 17; TEMP 35.9; O2SAT 98
[2025-03-23 20:06] VITALS: BP 152/37; PULSE 77; RESP 19; TEMP 35.6; O2SAT 98
[2025-03-23] MEDS: GABAPENTIN 300 MG CAPSULE PO (21:07)
[2025-03-23] MEDS: ATORVASTATIN 20 MG TABLET PO (21:07)
[2025-03-24 04:00] VITALS: BP 126/52; PULSE 83; RESP 18; TEMP 35.7; O2SAT 98
[2025-03-24 08:00] VITALS: BP 151/55; PULSE 90; RESP 19; TEMP 35.9; O2SAT 97
[2025-03-24 09:16] VITALS: O2SAT 98
[2025-03-24] MEDS: APIXABAN 5 MG TABLET PO ×2 (09:27→20:47)
[2025-03-24] MEDS: GABAPENTIN 100 MG CAPSULE PO (09:27)
[2025-03-24] MEDS: FUROSEMIDE 40 MG TABLET PO (09:27)
--- NOTE | 2025-03-24 10:40 | PC.NURSE ---
Day shift: An emprty Susana harmon in a can found in Pt's room . Pt w/ no s/s of intoxication.
--- NOTE | 2025-03-24 12:25 | PT.IPTN ---
Current Diagnoses Heart failure, unspecified (03/17/25) Disorder of kidney and ureter, unspecified (03/17/25) Other specified abnormal findings of blood chemistry (03/17/25) Physical Therapy Treatment Note M2 PT-IP Current Condition Start: 03/18/25 14:54 Freq: NEEDED Status: Active Protocol: Document 03/19/25 12:02 [facility] (Rec: 03/19/25 12:10 [facility] [id number]) Physical Therapy Current Condition Current Condition Evaluation Date 03/18/25 Treatment Diagnosis CHF; difficulty in walking Onset Date 03/17/25 M3 PT-IP Subjective Start: 03/18/25 14:54 Freq: NEEDED Status: Active Protocol: Document 03/24/25 12:25 [facility] (Rec: 03/24/25 14:38 AB [id number]) Subjective Physical Therapy Visit Type Type Treatment Note Visit Start Time 12:25 Visit Stop Time 12:50 Number of GUARD CAPTAIN Visits 0 Physical Therapy Visit Comments Patient Comments agreeable to do PT M4 PT-IP Mobility and Gait Start: 03/18/25 14:54 Freq: NEEDED Status: Active Protocol: Document 03/24/25 12:25 [facility] (Rec: 03/24/25 14:38 AB [id number]) PT-Bed Mobility Assessment Supine to Sit Supine to Sit Maximum Assistance,2 Person Assistance,Head of Bed Elevated,Bedrails Scooting Scooting to Edge of Dependent Bed PT-Transfer Assessment Sit to and From Stand Sit to and from Maximum Assistance,2 Person Assistance,Use of Upper Stand Extremities Equipment Transfer Assistive Gait Belt,Front Wheeled Walker Device Orthotic/Prosthetic No Devices or Brace: Transfers Transfer Destination Chair Transfer Technique Stand Step Pivot Transfer Ability Level of Assist Maximum Assistance,2 Person Assistance,Use of Upper Extremities Comments Mobility Comments checked on pt but pt stated that she wanted to rest for a few minutes since the nurse just moved her in bed. checked back on pt after ~ 30 min and agreed to do PT. completed supine to sit max A x 2 and max cues. required increase time to complete. presents with increase posterior trunk leaning requiring max A for sitting balance. completed sit to stand max A x 2 and max cues. step transfer to chair using fWW max A x 2 and max cues. required assist for move LE and weight shift and maneuver FWW. positioned pt on the chair. call light and table placed within reach. M5 PT-IP Objective Assessments Start: 03/18/25 14:54 Freq: NEEDED Status: Active Protocol: Document 03/19/25 12:02 [facility] (Rec: 03/19/25 12:10 [facility] [id number]) Orientation Orientation/Cognition Level of Alertness Alert Orientation Name,Birthday,Place Language Function Hard of Hearing Ability Safety Awareness Decreased Safety Awareness Memory Description Short Term Impaired,Ice Cream Chef Impaired M6 PT-IP Treatment Start: 03/18/25 14:54 Freq: NEEDED Status: Active Protocol: Document 03/24/25 12:25 AB (Rec: 03/24/25 14:38 AB [id number]) Physical Therapy Treatment Education Education Provided Safety M7 PT-IP Assessment and Plan Start: 03/18/25 14:54 Freq: NEEDED Status: Active Protocol: Document 03/24/25 12:25 [facility] (Rec: 03/24/25 14:38 AB [id number]) PT Summary Assessment and Plan Potential Rehabilitation Fair Potential Summary Impairments Pain,ROM,Strength,Balance,Coordination,Sensation,Tone, Cognition,Bed Mobility,Transfers,Gait,Activity Tolerance Progress Towards Slow Progress due to Medical Issues,Slow Progress due Goals to Activity Tolerance,Slow Progress - Other Assessment Summary pt continues to require max A x 2 for step transfer using FWW. Recommending use of mechanical lift with nursing staff. pt will need SNF rehab to improve overall strength and mobility. Goals Bed Mobility Goal Minimal Assistance Transfer Goal Minimal Assistance,Front Wheeled Walker Gait Goal Minimal Assistance,Front Wheel Walker Gait Distance 25 Other Goals improve bed mobility, transfers, ambulation using FWW ~ 100 ft SBA up/down 16 steps B rails SBA Days to Meet Goals 10 Frequency of Treatment Frequency Of Once a Day Treatment Treatment Plan Physical Therapy Bed Mobility Training,Transfer Training,Gait Training, Treatment Plan Therapeutic Exercise,Balance Retraining,Discharge Planning,Hot or Cold Pack,Neuromuscular Re-ed, Coordination Retraining Recommendations To Nursing Amount of Assist Mechanical Lift Needed Discharge Recommendations PT Discharge SNF Rehab Recommendations Transportation Needs Wheelchair/Cabulance at Discharge - PT assist 2
[2025-03-24] MEDS: INSULIN LISPRO 100 UNIT/ML 3ML VIAL SUBCUT (12:59)
--- NOTE | 2025-03-24 13:51 | OT.IP.TRT ---
Current Diagnoses Heart failure, unspecified (03/17/25) Disorder of kidney and ureter, unspecified (03/17/25) Other specified abnormal findings of blood chemistry (03/17/25) Occupational Therapy Treatment Note M2 OT-IP Current Condition Start: 03/23/25 10:15 Freq: Status: Active Protocol: Document 03/23/25 10:15 [facility] (Rec: 03/23/25 10:32 [facility] Desktop) Occupational Therapy Current Condition Current Condition Evaluation Date 03/23/25 Treatment Diagnosis CHF, generalized weakness Diagnosis Onset Date 03/17/25 M3 OT- IP Subjective and Pain Start: 03/23/25 10:15 Freq: Status: Active Protocol: Document 03/24/25 13:57 [facility] (Rec: 03/24/25 14:01 [facility] Desktop) OT- Subjective Occupational Therapy Visit Type Visit Start Time 13:25 Visit Stop Time 13:51 Occupational Therapy Visit Comments Patient Comments Pt too tired to get up but agreed to use BUE to rearrange and water her pedroza and play card game of Hydrocision. Patient/Caregiver TO get better. Goals M4 OT- IP ADL's Start: 03/23/25 10:15 Freq: Status: Active Protocol: Document 03/23/25 10:15 [facility] (Rec: 03/23/25 10:32 [facility] Desktop) OT OVQ-Pker-Fqtqlnt Comments OT Self-Feeding Not at meal time. Comments OT ADL-Grooming General Evaluation Grooming Ability Standby Assistance Comments OT Grooming Comments Set-up and able to do while CGA to close SBA from the edge of the bed. Pt heavily leans on the table and pillow behind her for support. OT ADL-Oral Care General Eval Oral Care Ability Standby Assistance Comments Oral Care Comments Set-up. OT ADL-Dressing General Eval Lower Body Dressing Maximum Assistance Ability Areas Needing Socks Assistance OT ADL-Toileting General Evaluation Toileting Ability Total Assistance Comments OT Toileting Mun[place] Comments OT ADL-Bathing Comments OT Bathing Comments Sponge bath versus use of rolling shower chair more appropriate at this time. M5 OT- IP IADL's Start: 03/23/25 10:15 Freq: Status: Active Protocol: Document 03/23/25 10:15 [facility] (Rec: 03/23/25 10:32 [facility] Desktop) OT-Instrumental Activities of Daily Living Medication Management Medication Caregiver Administers Management Money Management Money Management Caregiver Provides Assistance Meal Preparation Meal Preparation Caregiver Provides Assist Sheet Metal Shop Foreman Sheet Metal Shop Foreman Caregiver Provides Assist M6 OT- IP Functional Cognition Start: 03/23/25 10:15 Freq: Status: Active Protocol: Document 03/24/25 13:57 [facility] (Rec: 03/24/25 14:01 [facility] Desktop) Cognitive Factors Limiting Selfcare Function Cognitive Comments Cognitive Assessment Pt needing increased time and occasional cue to play Comments her Hydrocision game. M7 OT- IP Mobility and Balance Start: 03/23/25 10:15 Freq: Status: Active Protocol: Document 03/23/25 10:15 [facility] (Rec: 03/23/25 10:32 [facility] Desktop) OT- Bed Mobility Assessment Supine to Sit Supine to Sit Assist Maximum Assistance,1 Person Assistance,Head of Bed Elevated,Bedrails Scooting Scooting to Edge of Maximum Assistance,1 Person Assistance Bed OT-Transfer Assessment Sit to and From Stand Sit to and from Maximum Assistance,2 Person Assistance Stand Transfers Transfer Ability Maximum Assistance,2 Person Assistance Technique Transfer Destination Bed,Chair Transfer Technique Stand Step Pivot Devices Transfer Assistive Gait Belt,Front Wheeled Walker Devices Comments Mobility Comments Assist to help unweight her legs so pt able to assist to move her legs to the edge of the bed. MAX AX 1 to assist to get her trunk upright. MAX AX 2 to stand to the FWW and transfer with assist for balance and to help guide the FWW. Extensive assist to help pt lower to the recliner. OT- Balance Assessment Sitting Balance and Reactions Static Sitting Poor Balance Ability Dynamic Sitting Poor Balance Ability Standing Balance and Reactions Static Standing Poor Balance Ability Dynamic Standing Poor Balance Ability M8 OT- IP Objective Assessments Start: 03/23/25 10:15 Freq: Status: Active Protocol: Document 03/23/25 10:15 [facility] (Rec: 03/23/25 10:32 [facility] Desktop) OT Gross Range of Motion Upper Extremity Range of Motion Assessment Bilaterally Impaired OT Strength Comments Strength Comments RUE 3+/5 to 4/5 to 4+/5 LUE 3-/5 to 4-/5 to 4+/5 ( shoulder, elbow, hand) M9 OT- IP Assessment and Plan Start: 03/23/25 10:15 Freq: Status: Active Protocol: Document 03/24/25 13:57 [facility] (Rec: 03/24/25 14:01 [facility] Desktop) OT Summary Assessment and Plan Potential Rehabilitation Fair Potential Analytic Complexity Moderate at Evaluation Summary OT Impairments Pain,Range of Motion,Strength,Balance,Functional Cognition,Functional Mobility,Self-Feeding,Grooming, Dressing,Toileting,Bathing,Toilet Transfers,Shower Transfers,Activity Tolerance Progress Towards Slow Progress due to Medical Issues,Slow Progress due Goals to Activity Tolerance Assessment Summary Pt too tired to get up but agreed to work with her hands in order to water her pedroza and play cards. At the end of her game pt able to fruit or nut picker her cards more efficiently and using both hands. Pt to go to skilled rehab when medically stable. Goals Self-Feeding Goal Independent Grooming Goal Independent Dressing Goal Minimal Assistance Toileting Goal Minimal Assistance Bathing Goal Minimal Assistance Toilet Transfer Goal Standby Assistance Shower Transfer Goal Contact Guard Assistance Days to Meet Goals 25 Frequency of Treatment Other frequency 5x/week Treatment Plan OT Treatment Plan ADL Training,Functional Cognition Training,Functional Mobility,Patient/Family Education,Discharge Planning Other Treatment Transfer with FWW to [facility] with MODA X2. Recommendations and Next Treatment Focus Discharge Recommendations OT Discharge SNF Rehab Recommendations Transportation Needs Wheelchair/Cabulance at Discharge
--- NOTE | 2025-03-24 15:29 | PM.PN.1 ---
Subjective Subjective Date Patient Seen: 03/24/25 Interval history: S: She continues to be quite weak with her cardiac deconditioning. She does not want to return to her home with her daughter. Per PT this is not feasible with her inability to stand or pivot. It would require a Yaw lift at the house and a lot of physical support as well. Her renal function is stable to improving. She still has volume overload. The 03/23 platelets of 117, hemoglobin of 9.0, up from 8.8 and the creatinine of 1.21 will be repeated tomorrow. The insurance [facility] approval has been stalled for unclear reasons but is being checked on daily. She was a stage II coccyx wound with a pad in place. She also has yeast in the folds of her pannus which is being treated with powder. O: She is interactive, sitting in her bedside recliner She remains very weak and lethargic. She is oriented. Speech is slowed but appropriate. Lungs are clear with normal effort. Heart is regular, without murmur. Abdomen is distended, not tender and soft. Extremities with 2+edema bilaterally. Slightly improved from admission. Motor function is 1-2/5 in all extremities today. A/P: 1. Transient somnolence, resolved. 2. ALFREDO with hyperkalemia, improved. 3. Volume overload, active and improving. 4. Demand ischemia. Improved. 5. Chronic diastolic heart failure, active. 6. Diabetes, stable. 7. Morbid obesity, active. 8. Episode of rectal blood on March 20, history of hemorrhoids. Improved. 9. Stage 2 Coccyx skin injury. 10. Groin [place]. 11. Anemia 12. Generalized Weakness PLAN: -PO Lasix, increase from 40 to 60 mg on 03/24. -monitor potassium -Monitor for rectal bleeding. -monitor hemoglobin. -She is still being reviewed for [facility]. -Monitor renal function. DC plan: SNF @ [facility] 03/25 pending insurance approval. Near family. Exam Vital Signs (past 8 hours): - 03/24/25 08:00 03/24/25 09:16 03/24/25 09:30 Temperature 96.6 F L Pulse Rate 90 Respiratory Rate 19 Blood Pressure 151/55 H Pulse Oximetry 97 98 Oxygen Delivery Method Nasal Cannula Nasal Cannula Oxygen Flow Rate 0 2 Fraction of Inspired Oxygen 28 Fraction of Inspired Oxygen 28 SaO2/FiO2 Ratio 350 Oxygen Delivery Method Nasal Cannula Oxygen Flow Rate 2 Objective Labs 03/23/25 04:33 03/23/25 04:33 Labs: Laboratory Results - last 24 hr 03/23/25 03/23/25 03/24/25 16:48 20:14 08:09 POC Whole Bld Glucose 119 H 168 H 126 H 03/24/25 12:06 POC Whole Bld Glucose 146 H PFS Social History household members: family Smoking Status: Never smoker alcohol intake: never Assessment & Plan Time-Based Coding :: [TOTAL MINUTES] spent with patient and on the chart (including review of chart, obtaining history, exam, reviewing outside data, placing orders, documenting exam and treatment plan, and counseling patient) on [DATE]. Quality VTE Deep Vein Thrombosis/Pulmonary Embolism Present on Admission: No
[2025-03-24 16:00] VITALS: BP 153/59; PULSE 81; RESP 21; TEMP 35.7; O2SAT 92
--- NOTE | 2025-03-24 17:01 | CM.DPNOTE ---
DCP note [employer] reviewed EMR [employer] lvm with Tatiana from [facility] re: auth for SNF. no response P: dc to [facility] pending ins auth. could dc this weekend. will continue to follow closely for DCP coordination [place]
[2025-03-24 20:00] VITALS: BP 135/48; PULSE 85; RESP 16; TEMP 35.7; O2SAT 95
[2025-03-24 20:15] VITALS: O2SAT 92
[2025-03-24] MEDS: ATORVASTATIN 20 MG TABLET PO (20:47)
[2025-03-24] MEDS: GABAPENTIN 300 MG CAPSULE PO (20:47)
[2025-03-25] VITALS (9 sets, daily range): BP systolic 105–142; BP diastolic 44–55; PULSE 69–91; RESP 16–23; TEMP 35.7–36.4; O2SAT 92–96
[2025-03-25 06:17] LABS: Add Manual Diff / Slide Review NO; Hematocrit 27.7 % (36-46); Hemoglobin 9.1 g/dL (12.0-16.0); Lymphocytes Absolute Auto 3300 /uL (1100-4500); Mean Corpuscular HGB Conc 32.8 % (30-36); Mean Corpuscular Hemoglobin 29.7 PG (26-34); Mean Corpuscular Volume 90.6 fL (80-100); Platelet Count 115 X10^3/uL (150-400)
[2025-03-25 06:27] LABS: Blood Urea Nitrogen 48 mg/dL (7-17); Calcium 10.7 mg/dL (8.4-10.2); Chloride 91 mmol/L (98-107); Estimated Glomerular Filt Rate 46 mL/min (>60); Glucose 125 mg/dL (70-99); HEMOLYSIS < 15 (0-50); Potassium 4.8 mmol/L (3.4-5.1); Sodium 136 mmol/L (137-145)
[2025-03-25 06:49] LABS: Carbon Dioxide 38 mmol/L (22-32)
[2025-03-25] MEDS: APIXABAN 5 MG TABLET PO ×2 (08:51→20:43)
[2025-03-25] MEDS: FUROSEMIDE 20 MG TABLET 60 MG PO (08:51)
[2025-03-25] MEDS: GABAPENTIN 100 MG CAPSULE PO (08:51)
--- NOTE | 2025-03-25 09:23 | CM.DPC ---
[facility] CM requested updated on patient's Auth status. [facility]# [phone].
--- NOTE | 2025-03-25 09:24 | EKG_ITS ---
[address] [address] Test Date: 2025-03-25 Pat Name: Ольга Gonsales Department: [facility] Room: 219 Gender: Female Power Generation Engineer: SERGIO : 1945 Requested By: Order Number: [id number] Reading MD: Willis Plasencia Measurements Intervals [place] Rate: 90 P: 60 [place]: 236 QRS: -59 QRSD: 114 T: 127 QT: 368 QTc: 450 Interpretive Statements Sinus rhythm with 1st degree AV block with premature atrial complexes Left axis deviation Septal infarct , age undetermined Electronically Signed On 03-25-2025 9:37:09 PDT by Willis Plasencia
--- NOTE | 2025-03-25 09:45 | P.PN_ITS ---
Subjective Subjective Date Patient Seen: 03/25/25 Time Patient Seen: 09:45 Interval history: She continues to be quite weak with her cardiac deconditioning. She is too weak to return to her home with her daughter. Per PT this is not feasible with her inability to stand or pivot. It would require a Yaw lift at the house and a lot of physical support as well. Her renal function is stable to improving. She still has volume overload. The 03/23 platelets of 115, hemoglobin of 9.1, up from 8.8 and the creatinine of 1.21. The insurance SNF approval has been stalled for unclear reasons but is being checked on daily. With her lack of improvement in peripheral edema and other heart failure symptoms we will repeat the echo, as she appears to have a new murmur today. We will start her on low- dose losartan and carvedilol. Unfortunately Jardiance is not available in house. She was a stage II coccyx wound with a pad in place. She also has yeast in the folds of her pannus which is being treated with nystatin powder without benefit so fluconazole will be added. O: She is interactive, lying in bed She remains very weak and lethargic. She is oriented. Speech is slowed but appropriate. Lungs are clear with normal effort. Heart is irregularly irregular with a 1-2/6 systolic murmur. Abdomen is distended, not tender and soft. Extremities with 2+edema bilaterally. Slightly improved from admission. Motor function is 1-2/5 in all extremities today. A/P: 1. Transient somnolence, resolved. 2. ALFREDO with hyperkalemia, improved. 3. Volume overload, active and improving. 4. Demand ischemia. Improved. 5. Chronic diastolic heart failure, active. 6. Diabetes, stable. 7. Morbid obesity, active. 8. Episode of rectal blood on March 20, history of hemorrhoids. Improved. 9. Stage 2 Coccyx skin injury. 10. Groin [place]. 11. Anemia 12. Generalized Weakness PLAN: -PO Lasix, increased from 40 to 60 mg on 03/24. -add low-dose carvedilol and losartan on 03/25. Jardiance not available in house. -repeat echocardiogram. EKG 03/25 shows PACs, sinus rhythm, without AFib. -monitor potassium -Monitor for rectal bleeding. -monitor hemoglobin. -She is still being reviewed for SNF-[facility]. -Monitor renal function. DC plan: SNF @ [facility] 03/27 pending insurance approval. Near family. Exam Vital Signs (past 8 hours): - 03/25/25 04:00 03/25/25 08:00 Temperature 96.6 F L 97.2 F L Pulse Rate 91 H 88 Respiratory Rate 16 17 Blood Pressure 129/50 L 142/55 H Pulse Oximetry 92 96 Oxygen Flow Rate 1 1 Fraction of Inspired Oxygen 24 SaO2/FiO2 Ratio 383 Oxygen Delivery Method Nasal Cannula Oxygen Flow Rate 1 Objective Labs 03/25/25 05:31 03/25/25 05:31 Labs: Laboratory Results - last 24 hr 03/24/25 03/24/25 03/24/25 12:06 17:25 20:17 WBC RBC Hgb Hct MCV MCH MCHC RDW Plt Count Neut % (Auto) Lymph % (Auto) Armstrong % (Auto) Eos % (Auto) Baso % (Auto) Neut # (Auto) Lymph # (Auto) Armstrong # (Auto) Eos # (Auto) Baso # (Auto) Sodium Potassium Chloride Carbon Dioxide BUN Creatinine Estimated GFR BUN/Creatinine Ratio Glucose POC Whole Bld Glucose 146 H 120 H 140 H Calcium 03/25/25 03/25/25 05:31 08:00 WBC 6.5 RBC 3.06 L Hgb 9.1 L Hct 27.7 L MCV 90.6 MCH 29.7 MCHC 32.8 RDW 17.4 H Plt Count 115 L Neut % (Auto) 39.6 L Lymph % (Auto) 50.7 H Armstrong % (Auto) 6.9 Eos % (Auto) 2.5 Baso % (Auto) 0.3 Neut # (Auto) 2600 Lymph # (Auto) 3300 Armstrong # (Auto) 500 Eos # (Auto) 200 Baso # (Auto) 0 Sodium 136 L Potassium 4.8 Chloride 91 L Carbon Dioxide 38 H BUN 48 H Creatinine 1.21 H Estimated GFR 46 L BUN/Creatinine Ratio 39.7 H Glucose 125 H POC Whole Bld Glucose 121 H Calcium 10.7 H PFSH Social History household members: family Smoking Status: Never smoker alcohol intake: never Assessment & Plan Time-Based Coding :: [TOTAL MINUTES] spent with patient and on the chart (including review of chart, obtaining history, exam, reviewing outside data, placing orders, documenting exam and treatment plan, and counseling patient) on [DATE]. Quality VTE Deep Vein Thrombosis/Pulmonary Embolism Present on Admission: No
--- NOTE | 2025-03-25 11:15 | PT.IPTN ---
Current Diagnoses Heart failure, unspecified (03/17/25) Disorder of kidney and ureter, unspecified (03/17/25) Other specified abnormal findings of blood chemistry (03/17/25) Physical Therapy Treatment Note M2 PT-IP Current Condition Start: 03/18/25 14:54 Freq: NEEDED Status: Active Protocol: Document 03/19/25 12:02 [facility] (Rec: 03/19/25 12:10 [facility] [id number]) Physical Therapy Current Condition Current Condition Evaluation Date 03/18/25 Treatment Diagnosis CHF; difficulty in walking Onset Date 03/17/25 M3 PT-IP Subjective Start: 03/18/25 14:54 Freq: NEEDED Status: Active Protocol: Document 03/25/25 11:15 [facility] (Rec: 03/25/25 12:59 [facility] Desktop) Subjective Physical Therapy Visit Type Type Treatment Note Visit Start Time 11:15 Visit Stop Time 11:45 Number of [employer] MARKETING MANAGER Visits 0 Physical Therapy Visit Comments Patient Comments agreeable to do PT M4 PT-IP Mobility and Gait Start: 03/18/25 14:54 Freq: NEEDED Status: Active Protocol: Document 03/25/25 11:15 [facility] (Rec: 03/25/25 12:59 [facility] Desktop) PT-Bed Mobility Assessment Supine to Sit Supine to Sit Maximum Assistance,2 Person Assistance,Head of Bed Elevated,Bedrails PT-Transfer Assessment Sit to and From Stand Sit to and from Maximum Assistance,2 Person Assistance,Use of Upper Stand Extremities Equipment Transfer Assistive Gait Belt,Front Wheeled Walker Device Orthotic/Prosthetic No Devices or Brace: Transfers Transfer Destination Chair Transfer Technique Stand Step Pivot Transfer Ability Level of Assist Maximum Assistance,2 Person Assistance,Use of Upper Extremities Comments Mobility Comments pt in bed and agreeable to do PT. completed supine to sit max A x 2 and max cues. pt able to move LE towards the EOB better today but still requires assistance. able to sit on EOB max A initially but min A after repositioning. sit to stand max A x 2 and max cues and step transfer to chair using FWW max A x 2 and max cues. positioned pt on the chair total A x 2. call light and table placed within reach. M5 PT-IP Objective Assessments Start: 03/18/25 14:54 Freq: NEEDED Status: Active Protocol: Document 03/19/25 12:02 [facility] (Rec: 03/19/25 12:10 [facility] [id number]) Orientation Orientation/Cognition Level of Alertness Alert Orientation Name,Birthday,Place Language Function Hard of Hearing Ability Safety Awareness Decreased Safety Awareness Memory Description Short Term Impaired,Assisted Impaired M6 PT-IP Treatment Start: 03/18/25 14:54 Freq: NEEDED Status: Active Protocol: Document 03/25/25 11:15 [facility] (Rec: 03/25/25 12:59 [facility] Desktop) Physical Therapy Treatment Education Education Provided Safety M7 PT-IP Assessment and Plan Start: 03/18/25 14:54 Freq: NEEDED Status: Active Protocol: Document 03/25/25 11:15 [facility] (Rec: 03/25/25 12:59 [facility] Desktop) PT Summary Assessment and Plan Potential Rehabilitation Fair Potential Summary Impairments Pain,ROM,Strength,Balance,Coordination,Sensation,Tone, Cognition,Bed Mobility,Transfers,Gait,Activity Tolerance Progress Towards Slow Progress due to Medical Issues,Slow Progress due Goals to Activity Tolerance Assessment Summary pt continues to require max Ax 2 for bed mobility supine to sit and step transfer using fWW. pt able to move LE better today during mobility although needing same level of assistance. pt will benefit from SNF rehab to improve strength and mobility. Goals Bed Mobility Goal Minimal Assistance Transfer Goal Minimal Assistance,Front Wheeled Walker Gait Goal Minimal Assistance,Front Wheel Walker Gait Distance 25 Other Goals improve bed mobility, transfers, ambulation using FWW ~ 100 ft SBA up/down 16 steps B rails SBA Days to Meet Goals 10 Frequency of Treatment Frequency Of Once a Day Treatment Treatment Plan Physical Therapy Bed Mobility Training,Transfer Training,Gait Training, Treatment Plan Therapeutic Exercise,Balance Retraining,Discharge Planning,Hot or Cold Pack,Neuromuscular Re-ed, Coordination Retraining Recommendations To Nursing Amount of Assist Mechanical Lift Needed Discharge Recommendations PT Discharge SNF Rehab Recommendations Transportation Needs Wheelchair/Cabulance at Discharge - PT assist 2
[2025-03-25] MEDS: LOSARTAN 50 MG TABLET PO (12:01)
[2025-03-25] MEDS: FLUCONAZOLE 100 MG TABLET PO (12:03)
[2025-03-25] MEDS: GABAPENTIN 300 MG CAPSULE PO (20:43)
[2025-03-25] MEDS: ATORVASTATIN 20 MG TABLET PO (20:43)
[2025-03-26] VITALS (10 sets, daily range): BP systolic 115–129; BP diastolic 40–52; PULSE 65–74; RESP 18–20; TEMP 35.5–36.1; O2SAT 96–99
[2025-03-26 06:51] LABS: Add Manual Diff / Slide Review NO; Hematocrit 26.4 % (36-46); Hemoglobin 8.6 g/dL (12.0-16.0); Lymphocytes Absolute Auto 4400 /uL (1100-4500); Mean Corpuscular HGB Conc 32.6 % (30-36); Mean Corpuscular Hemoglobin 29.5 PG (26-34); Mean Corpuscular Volume 90.4 fL (80-100); Platelet Count 119 X10^3/uL (150-400)
--- NOTE | 2025-03-26 09:00 | PT-OP ANOTE ---
Addendum entered and electronically signed by Gloria Dailey, PT 03/26/25 16:58: When talked to RN about 11 am, she noted pt was not appropriate for PT at the time, possibly later in PM but not at that time. Original Note: Checked in w/pt re: getting up while call light was on. Pt reported she was too fatigued and needed to rest and asked PT to lower HOB. Noted she felt SOB and when pulse ox put on, pt had O2 saturation reading 69-70%. RN able to come in immediately and pt left w/RN.
--- NOTE | 2025-03-26 09:12 | EKG_ITS ---
[address] [address] Test Date: 2025-03-26 Pat Name: Ольга Gonsales Department: [facility] Room: 219 Gender: Female Pattern And Chain Maker: SERGIO : 1945 Requested By: Order Number: [id number] Reading MD: Willis Plasencia Measurements Intervals [place] Rate: 79 P: 42 [place]: 288 QRS: -70 QRSD: 114 T: 145 QT: 396 QTc: 454 Interpretive Statements Sinus rhythm with 1st degree AV block Left axis deviation Anteroseptal infarct , age undetermined Electronically Signed On 03-26-2025 12:19:15 PDT by Willis Plasencia
[2025-03-26] MEDS: APIXABAN 5 MG TABLET PO ×2 (09:29→21:27)
[2025-03-26] MEDS: GABAPENTIN 100 MG CAPSULE PO (09:29)
[2025-03-26] MEDS: FLUCONAZOLE 100 MG TABLET PO (09:29)
[2025-03-26] MEDS: FUROSEMIDE 60 MG in SODIUM CHLORIDE 0.9% 50 ML 112 MG IV (09:46)
--- NOTE | 2025-03-26 10:43 | PC.NURSE ---
PT notified nurse at 0910 that pt was c/o difficulty breathing and that her sat was in the 70's. RN went to bedside and noted that pt was sitting up in bed, sat was 76% on RA. Pt short of breath and lethargic. RN placed pt on NC and pushed staff assist button. Additional staff including LUMBER PLANER and Dr. Ndiaye came to bedside. Stat EKG ordered. Pt sat increased to 98% on 6L, and continued to be stable when NC decreased to 2L. Pt still c/o SOB. IV lasix ordered.
[2025-03-26] MEDS: INSULIN LISPRO 100 UNIT/ML 3ML VIAL SUBCUT ×2 (11:55→17:11)
--- NOTE | 2025-03-26 12:17 | PM.PN.1 ---
Subjective Subjective Date Patient Seen: 03/26/25 Interval history: She continues to be quite weak with her cardiac deconditioning. She is too weak to return to her home with her daughter. Per PT this is not feasible with her inability to stand or pivot. It would require a Yaw lift at the house and a lot of physical support as well. Her renal function is stable to improving. She still has volume overload. The platelets are 119, hemoglobin of 8.5, down from 9.1 and the creatinine is 1.21. The insurance SNF approval has been stalled for unclear reasons but is being checked on daily. With her lack of improvement in peripheral edema and other heart failure symptoms we will repeat a limited echo, as she appears to have a new murmur. She was started on low-dose losartan and carvedilol 03/25. Unfortunately Jardiance is not available in house. She continues to be profoundly low energy, bradykinetic, suggestive of profound hypothyroidism versus atypical Parkinson's. We will check a TSH. She had an episode of hypoxia during PT today when her oxygen had been inadvertently left off. Follow up EKG was unchanged. She was a stage II coccyx wound with a pad in place. She also has yeast in the folds of her pannus which is being treated with nystatin powder without benefit so fluconazole was added. O: She is minimally interactive, lying in bed She remains very weak and lethargic. She is oriented. Speech is slowed but appropriate. Lungs are clear with normal effort. Heart is irregularly irregular with a 2/6 systolic murmur. Abdomen is distended, not tender and soft. Extremities with 2+edema bilaterally. Motor function is 1-2/5 in all extremities today. A/P: 1. Transient somnolence, low energy and Bradykinesia, recurrent. Check TSH. 2. ALFREDO with hyperkalemia, improved. 3. Volume overload, active and improving. 4. Demand ischemia. Improved. 5. Chronic diastolic heart failure, active. 6. Diabetes, stable. 7. Morbid obesity, active. 8. Episode of rectal blood on March 20, history of hemorrhoids. Improved. 9. Stage 2 Coccyx skin injury. 10. Groin [place]. 11. Anemia 12. Generalized Weakness PLAN: -Rule out Hypothyroidism. TSH ordered 03/26 -Iron and B12 ordered 03/26 -PO Lasix, increased from 40 to 60 mg on 03/24. -added low-dose carvedilol and losartan on 03/25. Jardiance not available in house. -repeat limited echocardiogram. EKG 03/25 shows PACs, sinus rhythm, without AFib. -monitor hemoglobin. -She is still being reviewed for [facility]. -Monitor renal function. DC plan: [facility] 03/27 pending insurance approval. Near family. Exam Vital Signs (past 8 hours): - 03/26/25 08:00 03/26/25 09:00 03/26/25 09:17 Temperature 96.1 F L Pulse Rate 71 Respiratory Rate 20 Blood Pressure 116/41 L Pulse Oximetry 97 99 Oxygen Delivery Method Nasal Cannula Nasal Cannula Oxygen Flow Rate 2 03/26/25 09:44 03/26/25 09:45 03/26/25 11:52 Temperature 96 F L Pulse Rate 65 Respiratory Rate 20 Blood Pressure 121/48 L 121/48 L 118/40 L Pulse Oximetry 96 Oxygen Delivery Method Oxygen Flow Rate Fraction of Inspired Oxygen 24 SaO2/FiO2 Ratio 383 Oxygen Delivery Method Nasal Cannula Oxygen Flow Rate 2 Objective Labs 03/26/25 05:28 03/25/25 05:31 Labs: Laboratory Results - last 24 hr 03/25/25 03/25/25 03/26/25 16:42 20:50 05:28 WBC 7.9 RBC 2.92 L Hgb 8.6 L Hct 26.4 L MCV 90.4 MCH 29.5 MCHC 32.6 RDW 17.1 H Plt Count 119 L Neut % (Auto) 34.6 L Lymph % (Auto) 55.8 H [place] % (Auto) 6.8 Eos % (Auto) 2.5 Baso % (Auto) 0.3 Neut # (Auto) 2700 Lymph # (Auto) 4400 [place] # (Auto) 500 Eos # (Auto) 200 Baso # (Auto) 0 POC Whole Bld Glucose 131 H 143 H 03/26/25 03/26/25 08:04 11:43 WBC RBC Hgb Hct MCV MCH MCHC RDW Plt Count Neut % (Auto) Lymph % (Auto) [place] % (Auto) Eos % (Auto) Baso % (Auto) Neut # (Auto) Lymph # (Auto) [place] # (Auto) Eos # (Auto) Baso # (Auto) POC Whole Bld Glucose 121 H 142 H PFSH Social History household members: family Smoking Status: Never smoker alcohol intake: never Assessment & Plan Time-Based Coding :: [TOTAL MINUTES] spent with patient and on the chart (including review of chart, obtaining history, exam, reviewing outside data, placing orders, documenting exam and treatment plan, and counseling patient) on [DATE]. Quality VTE Deep Vein Thrombosis/Pulmonary Embolism Present on Admission: No
--- NOTE | 2025-03-26 13:21 | DI.ECHO.S_ITS ---
[facility] : : [address] : : [place] : : [id number] : : Phone: [phone] Echocardiogram Report + :Name: GURJIT LOCKHART Study Date: 03/26/2025 Height: 64 in : :[facility] : Weight: 244 lb: : Gender: Female BSA: 2.1 m2 : :: 1945 Age: 79 yrs : :Reason For Study: CHF : :Ordering Physician: : :MARY ANN SEQUEIRA Performed By: Narcotics Agent Lavonne Salmon : :Referring: CHERYL GRAYSON : + Interpretation Summary The ejection fraction is estimated to be 60-65%. Left ventricular wall motion is normal. Grade II diastolic dysfunction with elevated left atrial pressure. The right ventricle is mildly dilated. The right ventricular systolic function is normal. Procedure: A two-dimensional transthoracic echocardiogram with color flow and Doppler was performed in limited views only to assess CHF. The study quality was technically difficult. Comparison is made with the echocardiogram of 02/28/2025. A contrast injection of Definity was performed to improve assessment of LV function. The patient was in sinus rhythm with heart rates between 63-74 bpm during the exam. Left Ventricle: The left ventricle is normal in size and wall thickness. The ejection fraction is estimated to be 60-65%. Left ventricular wall motion is normal. Grade II diastolic dysfunction with elevated left atrial pressure. Right Ventricle: The right ventricle is mildly dilated. The right ventricular systolic function is normal. Atria: The left atrium is moderately dilated. Right atrial size is normal. There is a catheter/pacemaker lead seen in the right atrium. Tricuspid Valve: The tricuspid valve is not well visualized, but is grossly normal. There is mild tricuspid regurgitation. Great Vessels: IVC dilated, unable to evaluate sniff. Pericardium/ Pleura There are small-sized bilateral pleural effusions noted. MMode/2D Measurements & Calculations LVIDd: 4.9 cm LA A2 area: 26.5 cm2 LVIDs: 3.9 cm LA A4 area: 24.1 cm2 FS: 20.0 % LA length (vol): 6.2 cm IVSd: 1.2 cm LA vol: 87.3 ml LVPWd: 1.0 cm LA vol index: 41.0 ml/m2 LV mathias. diameter/BSA (cm/m^2): 2.3 LV sys. diameter/BSA (cm/m^2): 1.8 RA long axis: 6.0 cm RVD1 (basal): 4.8 cm RA area: 20.7 cm2 TAPSE: 2.0 cm RA vol: 60.8 ml RA : 28.6 ml/m2 IVC diam: 2.6 cm Doppler Measurements & Calculations MV E max phong: 86.6 cm/sec RV S Vel_phl: 11.2 cm/sec MV A max phong: 81.3 cm/sec MV E/A: 1.1 Med Peak E' Phong: 3.3 cm/sec E/E' med: 26.1 Lat Peak E' Phong: 5.9 cm/sec E/E' lat: 14.6 E/e' average: 20.3 MV dec time: 0.23 sec Reading Physician:02:16 PM
[2025-03-26 13:53] LABS: TSH w/ Reflex to FT4 2.73 uIU/mL (0.47-4.68)
--- NOTE | 2025-03-26 13:58 | CM.DPC ---
DCP SNF Cont: Per MD, pt remains stable for discharge to SNF pending insurance auth. NATALIYA called Tatiana at [facility] and she states she is uncertain why auth is taking so long, she has another [employer] insurance pt from [facility] who is taking the same amount of time for auth, and Tatiana plans to call [employer] first thing in the AM tomorrow Mon when they are open. WAN Santos
[2025-03-26 14:35] LABS: HEMOLYSIS < 15 (0-50); Iron 64 ug/dL (37-170)
[2025-03-26 14:46] LABS: Percent Iron Saturation 31 % (15-50); Total Iron Binding Capacity 206 ug/dL (265-497); Transferrin 151 mg/dL (206-381)
[2025-03-26 15:28] LABS: Vitamin B12 340 pg/mL (239-931)
[2025-03-26] MEDS: GABAPENTIN 300 MG CAPSULE PO (21:27)
[2025-03-26] MEDS: ATORVASTATIN 20 MG TABLET PO (21:27)
[2025-03-26] MEDS: SODIUM CHLORIDE 0.9% FLUSH 10 ML IV (22:16)
[2025-03-27] VITALS (8 sets, daily range): BP systolic 98–136; BP diastolic 42–53; PULSE 59–78; RESP 17–20; TEMP 35.6–36.1; O2SAT 95–99
[2025-03-27 05:43] LABS: Add Manual Diff / Slide Review NO; Hematocrit 26.1 % (36-46); Hemoglobin 8.4 g/dL (12.0-16.0); Lymphocytes Absolute Auto 4200 /uL (1100-4500); Mean Corpuscular HGB Conc 32.3 % (30-36); Mean Corpuscular Hemoglobin 29.4 PG (26-34); Mean Corpuscular Volume 91.1 fL (80-100); Platelet Count 109 X10^3/uL (150-400)
[2025-03-27 06:09] LABS: Blood Urea Nitrogen 53 mg/dL (7-17); Calcium 10.4 mg/dL (8.4-10.2); Chloride 90 mmol/L (98-107); Estimated Glomerular Filt Rate 38 mL/min (>60); Glucose 116 mg/dL (70-99); HEMOLYSIS < 15 (0-50); Potassium 4.8 mmol/L (3.4-5.1); Sodium 134 mmol/L (137-145)
[2025-03-27 06:52] LABS: Carbon Dioxide 31 mmol/L (22-32)
[2025-03-27] MEDS: GABAPENTIN 100 MG CAPSULE PO (08:11)
[2025-03-27] MEDS: APIXABAN 5 MG TABLET PO ×2 (08:11→21:31)
[2025-03-27] MEDS: FLUCONAZOLE 100 MG TABLET PO (08:11)
[2025-03-27] MEDS: FUROSEMIDE 20 MG TABLET 60 MG PO (08:11)
[2025-03-27] MEDS: SODIUM CHLORIDE 0.9% FLUSH 10 ML IV ×2 (08:12→21:30)
--- NOTE | 2025-03-27 09:22 | PT.IPTN ---
Current Diagnoses Heart failure, unspecified (03/17/25) Disorder of kidney and ureter, unspecified (03/17/25) Other specified abnormal findings of blood chemistry (03/17/25) Physical Therapy Treatment Note M2 PT-IP Current Condition Start: 03/18/25 14:54 Freq: NEEDED Status: Active Protocol: Document 03/19/25 12:02 [facility] (Rec: 03/19/25 12:10 [facility] [id number]) Physical Therapy Current Condition Current Condition Evaluation Date 03/18/25 Treatment Diagnosis CHF; difficulty in walking Onset Date 03/17/25 M3 PT-IP Subjective Start: 03/18/25 14:54 Freq: NEEDED Status: Active Protocol: Document 03/27/25 09:10 [facility] (Rec: 03/27/25 09:22 [facility] [id number]) Subjective Physical Therapy Visit Type Type Treatment Note Visit Start Time 08:40 Visit Stop Time 09:03 Notes cotreat for OT for mobility Number of OFFSET LABEL REWINDER Visits 0 Physical Therapy Visit Comments Patient Comments pt agrees to get up with PT/OT M4 PT-IP Mobility and Gait Start: 03/18/25 14:54 Freq: NEEDED Status: Active Protocol: Document 03/27/25 09:10 [facility] (Rec: 03/27/25 09:22 [facility] [id number]) PT-Bed Mobility Assessment Supine to Sit Supine to Sit Maximum Assistance,2 Person Assistance,Head of Bed Elevated,Bedrails Scooting Scooting to Edge of Maximum Assistance Bed PT-Transfer Assessment Sit to and From Stand Sit to and from Maximum Assistance,2 Person Assistance,Use of Upper Stand Extremities Equipment Transfer Assistive Gait Belt,Front Wheeled Walker Device Orthotic/Prosthetic No Devices or Brace: Transfers Transfer Destination Chair Transfer Technique Stand Step Pivot Transfer Ability Level of Assist Moderate Assistance,2 Person Assistance,Use of Upper Extremities Comments Mobility Comments supine to sit w/HOB elevated and max cues for segmental movement (cues LEs then reaching across), 1 step directions to get to EOB with max A x2, scoot to EOB max A x2 w/cues for pt to push on bed and pull on bed rail. sit to stand Max Ax2 requiring 2 attempts, once standing mod A x2 w/FWW to turn w/max cues for foot placement and assist w/walker turning. Required max A x2 and cueing to lower as pt did not get LLE back enough despite cueing. Dependent x2 for scooting back in chair. Pt reclined and left with call light in reach and OT. supine BP 118/47, seated 122/54, after transfer 104/39 ; O2 >93% throughout- RN notified on vitals PT-Balance Assessment Sitting Balance and Reactions Static Sitting Poor Balance Ability Dynamic Sitting Poor Balance Ability Standing Balance and Reactions Static Standing Poor Balance Ability Dynamic Standing Poor Balance Ability Device Used FWW M5 PT-IP Objective Assessments Start: 03/18/25 14:54 Freq: NEEDED Status: Active Protocol: Document 03/19/25 12:02 [facility] (Rec: 03/19/25 12:10 [facility] [id number]) Orientation Orientation/Cognition Level of Alertness Alert Orientation Name,Birthday,Place Language Function Hard of Hearing Ability Safety Awareness Decreased Safety Awareness Memory Description Short Term Impaired,Nurse Clinician Impaired M6 PT-IP Treatment Start: 03/18/25 14:54 Freq: NEEDED Status: Active Protocol: Document 03/27/25 09:10 [facility] (Rec: 03/27/25 09:22 [facility] [id number]) Physical Therapy Treatment Exercises Exercises Ankle Pumps Education Education Provided Safety M7 PT-IP Assessment and Plan Start: 03/18/25 14:54 Freq: NEEDED Status: Active Protocol: Document 03/27/25 09:10 [facility] (Rec: 03/27/25 09:22 [facility] [id number]) PT Summary Assessment and Plan Potential Rehabilitation Fair Potential Summary Impairments Pain,ROM,Strength,Balance,Coordination,Sensation,Tone, Cognition,Bed Mobility,Transfers,Gait,Activity Tolerance Progress Towards Slow Progress due to Medical Issues,Slow Progress due Goals to Activity Tolerance Assessment Summary Pt did show improvement today w/transfer ability, once up, was able to transfer w/mod A x2 with FWW but did require max A x2 for all other mobilities. Pt would cont to benefit from SNF before returning home. Goals Bed Mobility Goal Minimal Assistance Transfer Goal Minimal Assistance,Front Wheeled Walker Gait Goal Minimal Assistance,Front Wheel Walker Gait Distance 25 Other Goals improve bed mobility, transfers, ambulation using FWW ~ 100 ft SBA up/down 16 steps B rails SBA Days to Meet Goals 10 Frequency of Treatment Frequency Of Once a Day Treatment Treatment Plan Physical Therapy Bed Mobility Training,Transfer Training,Gait Training, Treatment Plan Therapeutic Exercise,Balance Retraining,Discharge Planning,Hot or Cold Pack,Neuromuscular Re-ed, Coordination Retraining Recommendations To Nursing Amount of Assist Mechanical Lift Needed Discharge Recommendations PT Discharge SNF Rehab Recommendations Transportation Needs Wheelchair/Cabulance at Discharge - PT assist 2
--- NOTE | 2025-03-27 09:29 | OT.IP.TRT ---
Current Diagnoses Heart failure, unspecified (03/17/25) Disorder of kidney and ureter, unspecified (03/17/25) Other specified abnormal findings of blood chemistry (03/17/25) Occupational Therapy Treatment Note M2 OT-IP Current Condition Start: 03/23/25 10:15 Freq: Status: Active Protocol: Document 03/23/25 10:15 [facility] (Rec: 03/23/25 10:32 [facility] Desktop) Occupational Therapy Current Condition Current Condition Evaluation Date 03/23/25 Treatment Diagnosis CHF, generalized weakness Diagnosis Onset Date 03/17/25 M3 OT- IP Subjective and Pain Start: 03/23/25 10:15 Freq: Status: Active Protocol: Document 03/27/25 09:15 [facility] (Rec: 03/27/25 09:29 [facility] Desktop) OT- Subjective Occupational Therapy Visit Type Type Treatment Note Visit Start Time 08:40 Visit Stop Time 09:13 Occupational Therapy Visit Comments Patient Comments Pt reclined in bed on entrance of OT/PT for co-tx. Pt was agreeable to try to get up to the recliner. Patient/Caregiver TO get better. Goals OT Pain Assessment Pain Present Pain Present Denied Pain M4 OT- IP ADL's Start: 03/23/25 10:15 Freq: Status: Active Protocol: Document 03/27/25 09:15 [facility] (Rec: 03/27/25 09:29 [facility] Desktop) OT UKQ-Crai-Ydmbodi General Evaluation Self-Feeding Ability Standby Assistance OT ADL-Grooming General Evaluation Grooming Ability Minimal Assistance Areas Needing Retrieving/Set-up of Grooming Items Assistance Comments OT Grooming Comments Pt required min A to brush the back of her head once up in chair. Pt was presented with a washcloth and was able to wash her face. OT ADL-Oral Care Comments Oral Care Comments not observed OT ADL-Dressing General Eval Lower Body Dressing Total Assistance Ability Areas Needing Socks Assistance OT ADL-Toileting General Evaluation Toileting Ability Total Assistance Comments OT Toileting [place] Comments OT ADL-Bathing Comments OT Bathing Comments Sponge bath versus use of rolling shower chair more appropriate at this time. M5 OT- IP IADL's Start: 03/23/25 10:15 Freq: Status: Active Protocol: Document 03/23/25 10:15 [facility] (Rec: 03/23/25 10:32 [facility] Desktop) OT-Instrumental Activities of Daily Living Medication Management Medication Caregiver Administers Management Money Management Money Management Caregiver Provides Assistance Meal Preparation Meal Preparation Caregiver Provides Assist Cartoonist Special Effects Cartoonist Special Effects Caregiver Provides Assist M6 OT- IP Functional Cognition Start: 03/23/25 10:15 Freq: Status: Active Protocol: Document 03/24/25 13:57 [facility] (Rec: 03/24/25 14:01 [facility] Desktop) Cognitive Factors Limiting Selfcare Function Cognitive Comments Cognitive Assessment Pt needing increased time and occasional cue to play Comments her [employer] game. M7 OT- IP Mobility and Balance Start: 03/23/25 10:15 Freq: Status: Active Protocol: Document 03/27/25 09:15 LUBNAOHCONNER (Rec: 03/27/25 09:29 TJ[facility]ST[facility] Desktop) OT- Bed Mobility Assessment Supine to Sit Supine to Sit Assist Maximum Assistance,2 Person Assistance,Head of Bed Elevated,Bedrails Scooting Scooting to Edge of Maximum Assistance,2 Person Assistance Bed OT-Transfer Assessment Sit to and From Stand Sit to and from Maximum Assistance,2 Person Assistance,Use of Upper Stand Extremities Transfers Transfer Ability Moderate Assistance,2 Person Assistance Technique Transfer Destination Bed,Chair Transfer Technique Stand Step Pivot Devices Transfer Assistive Gait Belt,Front Wheeled Walker Devices Orthotic/Prosthetic No Devices or Brace: Comments Mobility Comments Pt needs assist to lift the weight of her LEs during bed mobility and to assist with her UB. Pts BP in supine was 118/47 with O2 on 2L 96%. While EOB pt with 122/54 with O2 93%. Pt requires heavy vcs to take steps and assist with moving the FWW. Pt initiated sitting prior to reaching the chair despite heavy vcs. Pt BP from recliner was 104/39 and O2 94%. Pt performed grooming tasks up in chair, BP was checked following and was 98/33. OT- Balance Assessment Sitting Balance and Reactions Static Sitting Poor Balance Ability Dynamic Sitting Poor Balance Ability Standing Balance and Reactions Static Standing Poor Balance Ability Dynamic Standing Poor Balance Ability M8 OT- IP Objective Assessments Start: 03/23/25 10:15 Freq: Status: Active Protocol: Document 03/23/25 10:15 [facility] (Rec: 03/23/25 10:32 [facility] Desktop) OT Gross Range of Motion Upper Extremity Range of Motion Assessment Bilaterally Impaired OT Strength Comments Strength Comments RUE 3+/5 to 4/5 to 4+/5 LUE 3-/5 to 4-/5 to 4+/5 ( shoulder, elbow, hand) M9 OT- IP Assessment and Plan Start: 03/23/25 10:15 Freq: Status: Active Protocol: Document 03/27/25 09:15 [facility] (Rec: 03/27/25 09:29 [email or web address] Desktop) OT Summary Assessment and Plan Potential Rehabilitation Fair Potential Analytic Complexity Moderate at Evaluation Summary OT Impairments Pain,Range of Motion,Strength,Balance,Functional Cognition,Functional Mobility,Self-Feeding,Grooming, Dressing,Toileting,Bathing,Toilet Transfers,Shower Transfers,Activity Tolerance Progress Towards Slow Progress due to Medical Issues,Slow Progress due Goals to Activity Tolerance Assessment Summary Pt spoke softly and her responses were somewhat delayed . Pt denied feeling dizzy or lightheaded and c/o being tired. Pt was agreeable to getting up to the recliner. Pt required MAX 2 for bed mobility, MAX 2 sit to stand , MOD of 2 for t/f to recliner, TOTAL A for socks, SETUP for washing her face and MIN A to groom hair. Pts BP was 98/33 at end of tx while reclined in recliner, nsg notified. Pt left with all needs met and in reach. Pt continues to have a ways to go to return to [facility], skilled OT services are appropriate to address this. Pt would benefit from skilled rehab when medically stable. Goals Self-Feeding Goal Independent Grooming Goal Independent Dressing Goal Minimal Assistance Toileting Goal Minimal Assistance Bathing Goal Minimal Assistance Toilet Transfer Goal Standby Assistance Shower Transfer Goal Contact Guard Assistance Days to Meet Goals 25 Frequency of Treatment Other frequency 5x/week Treatment Plan OT Treatment Plan ADL Training,Functional Cognition Training,Functional Mobility,Patient/Family Education,Discharge Planning Other Treatment Transfer with FWW to [facility] with MODA X2. Recommendations and Next Treatment Focus Discharge Recommendations OT Discharge SNF Rehab Recommendations Transportation Needs Wheelchair/Cabulance at Discharge
--- NOTE | 2025-03-27 12:21 | CM.DPNOTE ---
DCP note [employer] reviewed EMR per provider still cleared to dc to SNF when auth secured. per Tatiana at [facility], auth still pending. [employer] emailed updated clinicals to [facility] for review. P: Dc to [facility] when ins auth secured. transport via facility van. will continue to follow closely for DCP Coordination WAN [place]
[2025-03-27] MEDS: INSULIN LISPRO 100 UNIT/ML 3ML VIAL SUBCUT (12:37)
--- NOTE | 2025-03-27 13:17 | PM.PN.IH.1 ---
Subjective Subjective Date Patient Seen: 03/27/25 Time Patient Seen: 13:30 Interval history: She continues to be quite weak with her cardiac deconditioning. TSH was normal. Echocardiogram is pending. She is too weak to return to her home with her daughter. She was a stage II coccyx wound with a pad in place. She also has yeast in the folds of her pannus which is being treated with nystatin powder without benefit so fluconazole was added. O: She is minimally interactive, lying in bed She remains very weak and lethargic. She is oriented. Speech is slowed but appropriate. Lungs are clear with normal effort. Heart is irregularly irregular with a 2/6 systolic murmur. Abdomen is distended, not tender and soft. Extremities with 2+edema bilaterally. Motor function is 1-2/5 in all extremities today. A/P: 1. Transient somnolence, low energy and Bradykinesia, recurrent. Check TSH. 2. ALFREDO with hyperkalemia, improved. 3. Volume overload, active and improving. 4. Demand ischemia. Improved. 5. Chronic diastolic heart failure, active. 6. Diabetes, stable. 7. Morbid obesity, active. 8. Episode of rectal blood on March 20, history of hemorrhoids. Improved. 9. Stage 2 Coccyx skin injury. 10. Groin [place]. 11. Anemia 12. Generalized Weakness PLAN: -increase furosemide to 40mg IV q8hr -added low-dose carvedilol and losartan on 03/25. Jardiance not available in house. -repeat limited echocardiogram pending. EKG 03/25 shows PACs, sinus rhythm, without AFib. -monitor hemoglobin. -She is still being reviewed for [facility]. -Monitor renal function. DC plan: SNF @ [facility] 03/28 pending insurance approval. Near family. Exam Vital Signs (past 8 hours): - 03/27/25 07:00 03/27/25 07:00 03/27/25 08:11 Temperature 96.0 F L Pulse Rate 78 78 Respiratory Rate 17 Blood Pressure 120/53 L 120/53 L Pulse Oximetry 95 Oxygen Delivery Method Nasal Cannula Oxygen Flow Rate 2 03/27/25 11:00 Temperature 97 F L Pulse Rate 59 L Respiratory Rate 20 Blood Pressure 98/43 L Pulse Oximetry 97 Oxygen Delivery Method Oxygen Flow Rate Fraction of Inspired Oxygen 24 SaO2/FiO2 Ratio 383 Oxygen Delivery Method Nasal Cannula Oxygen Flow Rate 2 Objective Labs 03/27/25 04:44 03/27/25 04:44 Labs: Laboratory Results - last 24 hr 03/26/25 03/26/25 03/26/25 05:28 16:58 20:45 WBC RBC Hgb Hct MCV MCH MCHC RDW Plt Count Neut % (Auto) Lymph % (Auto) [place] % (Auto) Eos % (Auto) Baso % (Auto) Neut # (Auto) Lymph # (Auto) [place] # (Auto) Eos # (Auto) Baso # (Auto) Sodium Potassium Chloride Carbon Dioxide BUN Creatinine Estimated GFR BUN/Creatinine Ratio Glucose POC Whole Bld Glucose 136 H 138 H Calcium Iron 64 TIBC 206 L % Saturation 31 Transferrin 151 L Vitamin B12 340 TSH 2.73 03/27/25 03/27/25 03/27/25 04:44 08:19 12:06 WBC 6.8 RBC 2.87 L Hgb 8.4 L Hct 26.1 L MCV 91.1 MCH 29.4 MCHC 32.3 RDW 16.8 H Plt Count 109 L Neut % (Auto) 29.3 L Lymph % (Auto) 62.3 H [place] % (Auto) 5.2 Eos % (Auto) 2.5 Baso % (Auto) 0.7 Neut # (Auto) 2000 Lymph # (Auto) 4200 [place] # (Auto) 400 Eos # (Auto) 200 Baso # (Auto) 0 Sodium 134 L Potassium 4.8 Chloride 90 L Carbon Dioxide 31 BUN 53 H Creatinine 1.41 H Estimated GFR 38 L BUN/Creatinine Ratio 37.6 H Glucose 116 H POC Whole Bld Glucose 116 H 157 H Calcium 10.4 H Iron TIBC % Saturation Transferrin Vitamin B12 TSH PFSH Social History household members: family Smoking Status: Never smoker alcohol intake: never Quality VTE Deep Vein Thrombosis/Pulmonary Embolism Present on Admission: No [facility] [employer] Engineer Document charge(s): No Charge Codes Subsequent inpatient/observation care: [id number]
--- NOTE | 2025-03-27 15:15 | DIET.PN1 ---
Dietary Progress Note Assessment: f/u Recent PO intakes avg 50%. Pt best tolerating protein shakes, drinking about 1/2 at meals. Continue with protein shake supplements (adjusted to modest protein content r/t renal function) BID-TID. Coordinated with kitchen. Ht: 162.56 cm Wt: 111 kg BMI: 42.0 Last BM: 03/25/25 (03/25/25 14:00) MNA: 14 Ernesto Score: 16 Diet: 03/18/25 Breakfast Carbohydrate Consistent Diet Diet Modifications: Carbohydrate level: Medium (3 CHO) Reflex DM orders: No Food Texture: Level 7 - Regular Liquid Consistency: Level 0 - Thin Nutrition Percent Meal Consumed 25% 03/25/25 18:00 Labs: RBC 2.87 X10^6/uL (4.0-5.2) L 03/27/25 04:44 Hgb 8.4 g/dL (12.0-16.0) L 03/27/25 04:44 Hct 26.1 % (36-46) L 03/27/25 04:44 Creatinine 1.41 mg/dL (0.52-1.04) H 03/27/25 04:44 Lactate 1.2 mmol/L (0.7-2.1) 03/16/25 17:48 Iron 64 ug/dL (37-170) 03/26/25 05:28 % Saturation 31 % (15-50) 03/26/25 05:28 NT-Pro-B Natriuret Pep 71649 pg/mL (<450) H 03/17/25 09:10 Electronically Signed by: Dayna Dc 03/27/25 15:15 Clinical Dietitian [address] [address]
--- NOTE | 2025-03-27 15:34 | SLP.IPNOTE ---
Chart reviewed and RN consulted. Session attempted around 15:15. Pt fast asleep. PANEL EDGE SEALER attempted to wake pt, though pt did not wake up despite verbal/tactile stimulation. RN expressed pt is known to be a deep sleeper. PANEL EDGE SEALER to follow up tomorrow.
[2025-03-27] MEDS: FUROSEMIDE 40 MG/4 ML VIAL IV ×2 (16:30→21:22)
--- NOTE | 2025-03-27 18:47 | P.DS_ITS ---
History of Present Illness History of Present Illness Date Patient Seen: 03/27/25 Chief complaint: AMS Narrative: [facility] discharge summary of hospital course: Patient was admitted for new onset heart failure and treated with diuresis. She was started on GDM T, but there are limitations due to soft blood pressures. Her admission was complicated by ALFREDO and metabolic encephalopathy. There is a question of urinary tract infection. In addition, she was in PAF and started on anticoagulation. The patient was discharge [facility]. Her chest x-ray revealed a small right pleural effusion [place] [id number] initially. Echo revealed EF which was normal with grade 2 diastolic dysfunction. She was chronic kidney disease stage 3 with a suspected baseline creatinine of 1.21.4. She did initially have hypoxic and hypercapnic respiratory failure as well. He was mentioned him and ESBL urinary tract infection. She was treated with ertapenem from March 07 through March 09 with described completed course of therapy. 03/17: She was discharged from [facility] to [facility] yesterday. This morning she was bradycardic and somnolent and sent to the ER. There she woke relatively easily but was noted to have a mildly elevated troponin as well as ALFREDO and volume overload. She was treated for diastolic heart failure and possible NSTEMI while at [facility]. In addition she did have a degree of ALFREDO. She denies any chest pain or overt dyspnea. She does have edema of both legs. She denies any abdominal pain, or nausea. She does not feel confused or somnolent. She was accompanied by her son, he feels that she nearing her baseline. Discharge Providers Provider Date of admission: 03/17/25 11:56 Primary care physician: HAIDER Ellis Consults: 03/17/25 17:48 Consult to Pharmacy Routine Comment: Assessed as high risk 03/18/25 10:37 Consult to Physical Therapy Evaluate & Treat Comment: Physician Instructions: Evaluate and Treat 03/19/25 09:18 Consult to Speech Therapy Evaluate & Treat Comment: dysphagia Physician Instructions: Evaluate and treat 03/21/25 10:42 Consult to Discharge Planning Routine Comment: If home needs a brent lift,oxygen, RN for garza 03/23/25 09:09 Consult to Occupational Therapy Evaluate & Treat Comment: Physician Instructions: Evaluate and treat Discharge provider: Quincy Rico MD Exam Vital Signs (past 8 hours): - 03/27/25 11:00 03/27/25 15:00 Temperature 97 F L 96.9 F L Pulse Rate 59 L 76 Respiratory Rate 20 18 Blood Pressure 98/43 L 136/46 L Pulse Oximetry 97 98 Fraction of Inspired Oxygen 24 SaO2/FiO2 Ratio 383 Oxygen Delivery Method Nasal Cannula Oxygen Flow Rate 2 Objective Labs 03/27/25 04:44 03/27/25 04:44 Labs: Laboratory Results - last 24 hr 03/26/25 03/27/25 03/27/25 20:45 04:44 08:19 WBC 6.8 RBC 2.87 L Hgb 8.4 L Hct 26.1 L MCV 91.1 MCH 29.4 MCHC 32.3 RDW 16.8 H Plt Count 109 L Neut % (Auto) 29.3 L Lymph % (Auto) 62.3 H [place] % (Auto) 5.2 Eos % (Auto) 2.5 Baso % (Auto) 0.7 Neut # (Auto) 2000 Lymph # (Auto) 4200 [place] # (Auto) 400 Eos # (Auto) 200 Baso # (Auto) 0 Sodium 134 L Potassium 4.8 Chloride 90 L Carbon Dioxide 31 BUN 53 H Creatinine 1.41 H Estimated GFR 38 L BUN/Creatinine Ratio 37.6 H Glucose 116 H POC Whole Bld Glucose 138 H 116 H Calcium 10.4 H 03/27/25 03/27/25 12:06 16:48 WBC RBC Hgb Hct MCV MCH MCHC RDW Plt Count Neut % (Auto) Lymph % (Auto) [place] % (Auto) Eos % (Auto) Baso % (Auto) Neut # (Auto) Lymph # (Auto) [place] # (Auto) Eos # (Auto) Baso # (Auto) Sodium Potassium Chloride Carbon Dioxide BUN Creatinine Estimated GFR BUN/Creatinine Ratio Glucose POC Whole Bld Glucose 157 H 138 H Calcium PFSH Social History household members: family Smoking Status: Never smoker alcohol intake: never Discharge Plan Discharge Plan Patient Disposition: Home Discharge orders & Medications Prescriptions: New fluconazole 100 mg Tablet 100 mg PO DAILY Qty: 5 0RF carvedilol 3.125 mg Tablet 3.125 mg PO BID Qty: 60 0RF Eliquis 5 mg Tablet 5 mg PO BID Qty: 60 0RF Continued losartan 50 mg tablet 50 mg PO DAILY atorvastatin 10 mg tablet 20 mg PO ONCE PM gabapentin 300 mg capsule 300 mg PO ONCE PM furosemide 20 mg tablet 20 mg PO DAILY gabapentin 100 mg capsule 100 mg PO DAILY Discontinued amlodipine 5 mg tablet 5 mg PO DAILY Follow up/Referrals: Tamara Sykes FNP-C [Primary Care Provider, Family Practice] Visit Report/Discharge Packet Stand Alone Forms: Patient Portal/API, Stroke Signs & Symptoms Discharge Data Primary Care Provider: Tamara Sykes Quality VTE Deep Vein Thrombosis/Pulmonary Embolism Present on Admission: No
[2025-03-27] MEDS: ATORVASTATIN 20 MG TABLET PO (21:31)
[2025-03-27] MEDS: GABAPENTIN 300 MG CAPSULE PO (21:31)
[2025-03-28 02:37] VITALS: PULSE 68; O2SAT 100
[2025-03-28 03:00] VITALS: BP 122/44; PULSE 61; RESP 18; TEMP 35.9; O2SAT 97
[2025-03-28 05:49] LABS: Blood Urea Nitrogen 56 mg/dL (7-17); Calcium 10.5 mg/dL (8.4-10.2); Chloride 89 mmol/L (98-107); Estimated Glomerular Filt Rate 35 mL/min (>60); Glucose 133 mg/dL (70-99); HEMOLYSIS < 15 (0-50); Potassium 4.7 mmol/L (3.4-5.1); Sodium 135 mmol/L (137-145)
[2025-03-28] MEDS: FUROSEMIDE 40 MG/4 ML VIAL IV (05:58)
[2025-03-28 06:04] LABS: Carbon Dioxide 31 mmol/L (22-32)
[2025-03-28 08:00] VITALS: BP 137/76; PULSE 72; RESP 18; TEMP 36; O2SAT 99
[2025-03-28 08:42] VITALS: BP 137/46
[2025-03-28] MEDS: GABAPENTIN 100 MG CAPSULE PO (08:42)
[2025-03-28] MEDS: APIXABAN 5 MG TABLET PO (08:42)
[2025-03-28] MEDS: LOSARTAN 50 MG TABLET PO (08:42)
[2025-03-28] MEDS: FLUCONAZOLE 100 MG TABLET PO (08:42)
[2025-03-28] MEDS: FUROSEMIDE 40 MG TABLET PO (08:42)
[2025-03-28] MEDS: SODIUM CHLORIDE 0.9% FLUSH 10 ML IV (08:43)
--- NOTE | 2025-03-28 12:20 | OT.IPNOTE ---
Pt leaving AMA today home with BLS, discharge OT services.
--- NOTE | 2025-03-28 12:22 | P.DS_ITS ---
History of Present Illness History of Present Illness Date Patient Seen: 03/28/25 Chief complaint: AMS Narrative: Chief complaint: Metabolic encephalopathy shortness for breath and acute on chronic congestive heart failure with hypoxic respiratory failure History of present illness: Patient presented to our emergency room after 24 hours holding discharge from [facility] to assisted: [facility] discharge summary of hospital course: Patient was admitted for new onset heart failure and treated with diuresis. She was started on GDM T, but there are limitations due to soft blood pressures. Her admission was complicated by ALFREDO and metabolic encephalopathy. There is a question of urinary tract infection. In addition, she was in PAF and started on anticoagulation. The patient was discharge to assisted facility. Her chest x-ray revealed a small right pleural effusion and [place] BNP was [id number] initially. Echo revealed EF which was normal with grade 2 diastolic dysfunction. She was chronic kidney disease stage 3 with a suspected baseline creatinine of 1.21.4. She did initially have hypoxic and hypercapnic respiratory failure as well. He was mentioned him and ESBL urinary tract infection. She was treated with ertapenem from March 07 through March 09 with described completed course of therapy. 03/17: She was discharged from [facility] to [facility] yesterday. This morning she was bradycardic and somnolent and sent to the ER. There she woke relatively easily but was noted to have a mildly elevated troponin as well as ALFREDO and volume overload. She was treated for diastolic heart failure and possible NSTEMI while at [facility]. In addition she did have a degree of ALFREDO. She denies any chest pain or overt dyspnea. She does have edema of both legs. She denies any abdominal pain, or nausea. She does not feel confused or somnolent. She was accompanied by her son, he feels that she nearing her baseline. Hospital course: 03/17-03/28: Patient was treated for congestive heart failure with goal-directed medical therapy aggressive diuresis but with very limited progress extremely limited physical capacity despite aggressive attempts at management. Patient was minimally interactive or cooperative with physical therapy. Note from physical therapy 03/27: Transfer Ability Level of Assist Moderate Assistance,2 Person Assistance,Use of Upper Extremities Comments Mobility Comments supine to sit w/HOB elevated and max cues for segmental movement (cues LEs then reaching across), 1 step directions to get to EOB with max A x2, scoot to EOB max A x2 w/cues for pt to push on bed and pull on bed rail. sit to stand Max Ax2 requiring 2 attempts, once standing mod A x2 w/FWW to turn w/max cues for foot placement and assist w/walker turning. Required max A x2 and cueing to lower as pt did not get LLE back enough despite cueing. Dependent x2 for scooting back in chair. Review of systems: No chest pain or palpitations No nausea vomiting No abdominal pain diarrhea Physical exam: Alert conversant chronically ill moderately labored respirations HEENT unremarkable Heart irregular heart sounds distant Lung sounds distant 2+ edema x4 Moves all extremities Assessment and plan: Transient somnolence, low energy and Bradykinesia, recurrent. * Chronic failure to thrive * Palliative discharge to home * Suspect a large component of major depression * Limited therapeutic options ALFREDO with hyperkalemia, improved. * At baseline Volume overload, active and improving. * At physiologic limit of diuresis and GDM T Demand ischemia. Improved. * Optimized but limits activity Chronic diastolic heart failure, active. * Partially compensated but markedly limited capacity Chronic atrial fibrillation * Rate control * Eliquis for CVA prophylaxis Diabetes, stable. * Continue treatment Morbid obesity, active. * Complicates all aspects of management * No available therapeutic options Episode of rectal blood on March 20, history of hemorrhoids. Improved. * No further complication Stage 2 Coccyx skin injury. * Chronic wound care [place]. * On systemic and local care DVT prophylaxis: * Covered with Eliquis Disposition: * Discharge to home with palliative home approach * Code status currently full code but we will probably change to DNR Time based billing: * 75 minutes were involved in evaluation of this patient including [id number] evaluation of the patient in discussion communication with care management hospital administration and coordination with outside agencies, review of chart and objective laboratory and imaging data Discharge Providers Provider Date of admission: 03/17/25 11:56 Discharge Date: 03/28/25 Primary care physician: HAIDER Ellis Consults: 03/17/25 17:48 Consult to Pharmacy Routine Comment: Assessed as high risk 03/18/25 10:37 Consult to Physical Therapy Evaluate & Treat Comment: Physician Instructions: Evaluate and Treat 03/19/25 09:18 Consult to Speech Therapy Evaluate & Treat Comment: dysphagia Physician Instructions: Evaluate and treat 03/21/25 10:42 Consult to Discharge Planning Routine Comment: If home needs a brent lift,oxygen, RN for kayla 03/23/25 09:09 Consult to Occupational Therapy Evaluate & Treat Comment: Physician Instructions: Evaluate and treat 03/28/25 12:07 Consult to Home Health Routine Comment: Reason For Exam: RN/PT/OT/speech Discharge provider: Quincy Rico MD Exam Vital Signs (past 8 hours): - 03/28/25 08:00 03/28/25 08:42 03/28/25 08:42 Temperature 96.8 F L Pulse Rate 72 Respiratory Rate 18 Blood Pressure 137/76 137/46 L 137/46 L Pulse Oximetry 99 Fraction of Inspired Oxygen 28 SaO2/FiO2 Ratio 357 Oxygen Delivery Method Nasal Cannula Oxygen Flow Rate 3 Objective Labs 03/27/25 04:44 03/28/25 05:03 Labs: Laboratory Results - last 24 hr 03/27/25 03/27/25 03/28/25 16:48 20:54 05:03 Sodium 135 L Potassium 4.7 Chloride 89 L Carbon Dioxide 31 BUN 56 H Creatinine 1.50 H Estimated GFR 35 L BUN/Creatinine Ratio 37.3 H Glucose 133 H POC Whole Bld Glucose 138 H 159 H Calcium 10.5 H 03/28/25 08:33 Sodium Potassium Chloride Carbon Dioxide BUN Creatinine Estimated GFR BUN/Creatinine Ratio Glucose POC Whole Bld Glucose 134 H Calcium PFSH Social History household members: family Smoking Status: Never smoker alcohol intake: never Discharge Plan Discharge Plan Patient Disposition: Home Health Service Discharge orders & Medications Prescriptions: New fluconazole 100 mg Tablet 100 mg PO DAILY Qty: 5 0RF carvedilol 3.125 mg Tablet 3.125 mg PO BID Qty: 60 0RF Eliquis 5 mg Tablet 5 mg PO BID Qty: 60 0RF furosemide 40 mg Tablet 40 mg PO 0800,1700 Qty: 60 0RF Continued losartan 50 mg tablet 50 mg PO DAILY atorvastatin 10 mg tablet 20 mg PO ONCE PM gabapentin 300 mg capsule 300 mg PO ONCE PM gabapentin 100 mg capsule 100 mg PO DAILY Discontinued amlodipine 5 mg tablet 5 mg PO DAILY furosemide 20 mg tablet 20 mg PO DAILY Follow up/Referrals: Tamara Sykes FNP-C [Primary Care Provider, Family Practice] Visit Report/Discharge Packet Stand Alone Forms: Patient Portal/API, Stroke Signs & Symptoms Discharge Data Primary Care Provider: Tamara Sykes VTE Deep Vein Thrombosis/Pulmonary Embolism Present on Admission: No
[2025-03-28 13:50] VITALS: BP 116/35; PULSE 64; RESP 21; TEMP 36.1; O2SAT 91
--- NOTE | 2025-03-28 14:59 | CM.DPNOTE ---
DCP note CALENDER OPERATOR Reviewed EMR per RN/provider, dtr attempted to AMA with pt last night. just wants to take pt home. pt eager to go home. CALENDER OPERATOR spoke with patient and dtr Ansley [phone] mult times throughout day. Dtr expressed understanding that this is not the current recommended safe dcp. reports understanding of risks and concerns with DC home vs SNF. reports she just went through the training to become the SALVADOR CG. Dtr reports she does not think pt is hospice appropriate at this time. CALENDER OPERATOR provided education on hospice services. dtr reports understanding that to initiate hospice if they are interested down the road to coordinate with PCP. report that prior to pt's first admission that they were working with PCP to get brent/wc in the home. Dtr agreeable to HH- no agency preference. [facility] picked due to rotating vendor calendar. original plan was to take pt home in person vehicle. after coordination with Lisy BLAS, Lisy WAN spoke with dtr and agreed for the [facility] medical relief fund to cover the potential COPAY cost that insurance does not cover for BLS home. dtr preference is now for transport with BLS. Plan above reviewed with pt. Pt agreeable to plan and reports that is her preference. CALENDER OPERATOR placed Home oxygen orders with [facility]. per [facility], tank outside of room is patients and the oxygen company will deliver oxygen to home later this evening. CALENDER OPERATOR and pt reviewed POLST Form with WAN Lisy present. pt signed POLST form. copies placed in scanning folder. original POLST placed in chart, RN to give to pt with discharge instructions. CALENDER OPERATOR sent simon from [facility] initial and final HH referral information. Simon reports they can accept. f2f placed in scanning folder. CALENDER OPERATOR completed HH order. CALENDER OPERATOR canceled [facility] referral. CALENDER OPERATOR spoke with [facility](?). report she is discharging home. CALENDER OPERATOR spoke with [facility], scheduled transport for [id number]. Completed BLS transport form. placed in folder. CALENDER OPERATOR updated RN and TECHNICAL SALES ADVISOR. P: dc home with family support and [facility]. transport with [facility] BLS. CM team will continue to follow as needed for DCP Coordination WAN [place]
--- NOTE | 2025-03-28 16:19 | PC.NURSE ---
Discharge Note Patient A&O, VSS, RA, no complaints of pain/discomfort. PIV discontinued. Discharge packet reviewed with patient, all questions/concerns addressed. All belongings packed and given to patient. Report given to EMS crew, all questions/concerns addressed. Patient hoyered to stretcher and taken by EMS crew.
[2025-03-29 06:36] LABS: Calcium 10.5 mg/dL (8.7-10.3); Parathyroid Hormone, Intact 24 pg/mL (15-65)
== END 2025-03-28 15:15 | disposition home health service (06) | DRG 291 ==
LOC: ED 03-17 11:55 → AC 03-17 11:56
PROVIDERS: Emergency Medicine; Family Medicine; Internal Medicine; Admitting Provider Hospitalist; Emergency Provider Emergency Medicine; PCP Registered Nurse; Referring Provider Emergency Medicine; Visit Provider Hospitalist
DX: I50.32 Chronic diastolic (congestive) heart failure (principal); G93.41 Metabolic encephalopathy; B37.89 Other sites of candidiasis; I24.89 Other forms of acute ischemic heart disease; N17.9 Acute kidney failure, unspecified; I48.20 Chronic atrial fibrillation, unspecified; Z68.41 Body mass index [BMI] 40.0-44.9, adult; E87.5 Hyperkalemia; E11.9 Type 2 diabetes mellitus without complications; E66.813 Obesity, class 3; L89.152 Pressure ulcer of sacral region, stage 2; D64.9 Anemia, unspecified; K64.9 Unspecified hemorrhoids; F32.9 Major depressive disorder, single episode, unspecified; R62.7 Adult failure to thrive; R79.89 Other specified abnormal findings of blood chemistry
CPT/HCPCS: 36415; 36600; 70450; 71045; 80048; 80053; 80320; 81001; 82310; 82550; 82607; 82805; 82962; 83540; 83550; 83605; 83735; 83880; 83970; 84145; 84443; 84484; 85025; 85027; 85379; 85610; 85730; 87040; 87637; 92523; 93005; 93307; 93970; 94618; 94760; 96365; 96366; 96375; 97110; 97162; 97166; 97530; 97535; 99285; J1644; J1815; J1938; Q9957